=== PATIENT | female | born 1980 | race African-American/Black ===

== ENCOUNTER 2021-06-02 08:39 | Inpatient (IN) | payer MEDICAID, OTHER ==
[2021-06-02 09:12] LABS: #Eosinphils 0.1 thou/uL (0.0-0.7); #Monocytes 0.9 thou/uL (0.11-0.59); #Neutrophils 9.5 thou/uL (1.40-6.50); %Basophils 0.3 % (0.0-1.0); %Eosinophils 0.5 % (0.0-10.0); %Lymphocytes 15.7 % (21.0-51.0); %Neutrophils 76.5 % (42.0-75.0); Mean Corpuscular HGB CONC 27.7 g/dL (32.0-36.0); Mean Corpuscular Hemoglobin 17.8 pg (27.0-31.0); Mean Corpuscular Volume 64.2 fL (78.0-98.0); Mean Platelet Volume 5.9 fL (7.4-10.4); Platelet Count 265 thou/uL (130-400); RBC Distribution Width 22.4 % (11.5-14.5); Red Blood Cell (RBC) Count 3.94 mill/uL (4.20-5.40); White Blood Cell (WBC) Count 12.5 thou/uL (4.8-10.8)
[2021-06-02 09:31] LABS: Reflex for Review?? YES
[2021-06-02 09:38] LABS: ALT (SGPT) 8 U/L (8-55); AST (SGOT) 21 U/L (5-34); Albumin 4.2 g/dL (3.5-5.0); Alkaline Phosphatase 59 U/L (40-110); Anion Gap 11 mmol/L (10-20); BUN (Urea Nitrogen) 11 mg/dL (7.0-18.7); Bilirubin, Total 0.6 mg/dL (0.2-1.2); Calc. Creatinine Clearance 0 mL/min (70-130); Calcium 8.6 mg/dL (7.8-10.44); Carbon Dioxide 30 mmol/L (22-29); Chloride 97 mmol/L (98-107); Globulin 4.5 g/dL (2.4-3.5); Glucose 125 mg/dL (70-105); Potassium 3.7 mmol/L (3.5-5.1); Protein, Total 8.7 g/dL (6.0-8.3); Sodium 134 mmol/L (136-145)
[2021-06-02 09:46] LABS: Hypochromia MODERATE=16-30 cells (100X) (0-5/hpf); MDiff Complete? YES; Microcytosis MARKED = >30 cells (100X) (0-5/hpf); Platelet Morphology Comment Appears Adequate; Polychromasia SLIGHT = 2-3 cells (100X) (0-2/hpf); Stomatocytes SLIGHT = 2-5 cells (100X) (0-1/hpf)
[2021-06-02] MEDS ORDERED: Iopamidol-370 76% 500 ML 1 ML ONE (10:18)
[2021-06-02 11:48] LABS: Bacteria/HPF 4+ HPF (None Seen); Bilirubin Negative (Negative); Blood, Urine 3+ (Negative); Clarity Turbid (Clear); Glucose, Urine (Dipstick) Normal (Negative); Ketone, Urine Negative (Negative); Leukocyte 75 Leu/uL (Negative); Nitrite Negative (Negative); Pregnancy Test - Urine (BHCG) Negative (Negative); Pregu Control Background? CLEAR/WHITE (CLR/WHITE); Pregu Control Bar Appear? YES (CONTROL BAR); Protein, Urine (Dipstick) 200 mg/dL (Neg-Trace); Specific Gravity 1.021 (1.002-1.036); Specific Gravity, Urine 1.021 (1.002-1.036); Urobilinogen 3 mg/dL (Less than 2)
[2021-06-02 13:49] LABS: SARS-CoV-2 NAA Rapid Test DETECTED (NotDetected)
[2021-06-02 13:58] LABS: Actual Bicarbonate (HCO3a) 30.3 mEq/L (22-28); Analyzer IN Cardio ER; Base Excess (BEa) 2.5 mEq/L (-2.0 to +3.0); Calcium, Ionized (arterial) 1.01 mmol/L (1.12-1.30); Carboxyhemoglobin (COHb) 1.5 gm% (0.0-3.0); Hemoglobin (Hb) 7.5 g/dL (12.0-16.0); pH, Arterial 7.25 (7.35-7.45)
[2021-06-02 13:59] LABS: ALV-art Gradient 60.215 mmHg (0-20); CO2 Tension 70.1 mmHg (35.0-45.0); O2 Tension (PaO2), arterial 51.8 mmHg (80.0-100.0); Puncture Site RRA
[2021-06-02 15:19] LABS: Actual Bicarbonate (HCO3a) 30.7 mEq/L (22-28); Analyzer IN Cardio ER; Base Excess (BEa) 1.6 mEq/L (-2.0 to +3.0); Calcium, Ionized (arterial) 1.05 mmol/L (1.12-1.30); Carboxyhemoglobin (COHb) 1.8 gm% (0.0-3.0); Hemoglobin (Hb) 7.9 g/dL (12.0-16.0); O2 Tension (PaO2), arterial 62.9 mmHg (80.0-100.0)
[2021-06-02] MEDS ORDERED: Rocuronium Bromide 10 MG/ML (10ML VIAL) ONE (15:29)
[2021-06-02] MEDS ORDERED: Fentanyl CADD 100 ML IV SCH (15:45)
[2021-06-02] MEDS ORDERED: Midazolam HCl 5 mg/ml Vial ONE (15:52)
[2021-06-02 16:05] LABS: CO2 Tension 82.5 mmHg (35.0-45.0); Puncture Site LRA; pH, Arterial 7.19 (7.35-7.45)
[2021-06-02 16:06] LABS: ALV-art Gradient 261.775 mmHg (0-20)
[2021-06-02] MEDS ORDERED: Dexamethasone 4 mg/ml Vial ONE (16:18)
[2021-06-02 16:53] LABS: Actual Bicarbonate (HCO3a) 21.9 mEq/L (22-28); Analyzer IN Cardio ER; Calcium, Ionized (arterial) 0.95 mmol/L (1.12-1.30); Carboxyhemoglobin (COHb) 1.6 gm% (0.0-3.0); Hemoglobin (Hb) 7.3 g/dL (12.0-16.0); O2 Tension (PaO2), arterial 138.4 mmHg (80.0-100.0); Potassium - ABG Lab 3.67 mmol/L (3.70-5.30)
[2021-06-02 17:02] LABS: CO2 Tension 21.6 mmHg (35.0-45.0); Puncture Site LRA; pH, Arterial 7.62 (7.35-7.45)
[2021-06-02] MEDS ORDERED: cefTRIAXone\\ROCEPHIN 1 GM VIAL ONE ×2 (17:55→22:06)
[2021-06-02] MEDS ORDERED: Electrolyte Replacement Protocol 1 EACH IVPB PRN (18:19)
[2021-06-02] MEDS ORDERED: Ondansetron PF 4 MG/2 ML Vial IVP PRN (18:19)
[2021-06-02 18:51] LABS: Hemoglobin 6.6 g/dL (12.0-16.0)
[2021-06-02] MEDS ORDERED: Propofol 1,000 MG/100 ML VIAL IV ONE (19:09)
[2021-06-02] MEDS ORDERED: Pantoprazole 40 MG VIAL IVP SCH (19:15)
[2021-06-02] MEDS ORDERED: Acetaminophen 325 MG TAB ONE ×2 (19:27→19:28)
[2021-06-02] MEDS ORDERED: cefTRIAXone\\ROCEPHIN 1 GM in Sodium Chloride 0.9% 100 ML IVPB SCH (20:00)
[2021-06-02] MEDS: Acetaminophen 650 MG Suppository PR PRN (20:16)
[2021-06-02] MEDS ORDERED: Azithromycin 500 MG VIAL ONE (20:18)
[2021-06-02] MEDS: Azithromycin 500 MG in Sodium Chloride 0.9% 250 ML 250 ML IVPB SCH ×2 (20:49→21:02)
[2021-06-02] MEDS ORDERED: Pantoprazole 40 MG VIAL ONE (22:07)
[2021-06-02] MEDS ORDERED: Norepinephrine 8 MG/0.9% NS 250 ML ONE (22:53)
[2021-06-02] MEDS: Enoxaparin Sodium 40 MG/0.4 ML SYRINGE SC SCH (23:05)
[2021-06-02] MEDS ORDERED: Norepinephrine 8 MG/0.9% NS 250 ML IVPB SCH (23:30)
[2021-06-03] MEDS ORDERED: Propofol 1,000 MG/100 ML VIAL IV ONE ×2 (00:17→06:11)
[2021-06-03] MEDS: Colchicine 0.6 MG TAB PER TUBE SCH ×2 (04:00→09:35)
[2021-06-03] MEDS ORDERED: Fentanyl CADD 100 ML ONE (05:38)
[2021-06-03 05:49] LABS: ALT (SGPT) 9 U/L (8-55); AST (SGOT) 17 U/L (5-34); Albumin 3.7 g/dL (3.5-5.0); Alkaline Phosphatase 48 U/L (40-110); Anion Gap 12 mmol/L (10-20); BUN (Urea Nitrogen) 18 mg/dL (7.0-18.7); Bilirubin, Total 0.6 mg/dL (0.2-1.2); CRP (Inflammatory) 13.72 mg/dL (= or < 0.5); Calc. Creatinine Clearance 40 mL/min (70-130); Calcium 7.7 mg/dL (7.8-10.44); Carbon Dioxide 25 mmol/L (22-29); Chloride 99 mmol/L (98-107); Globulin 4.1 g/dL (2.4-3.5); Glucose 149 mg/dL (70-105); Potassium 3.8 mmol/L (3.5-5.1); Protein, Total 7.8 g/dL (6.0-8.3); Sodium 132 mmol/L (136-145)
[2021-06-03 05:56] LABS: #Lymphocytes 0.6 thou/uL (1.20-3.40); #Monocytes 0.5 thou/uL (0.11-0.59); #Neutrophils 12.3 thou/uL (1.40-6.50); %Eosinophils 0.1 % (0.0-10.0); %Lymphocytes 4.2 % (21.0-51.0); %Monocytes 3.7 % (0.0-10.0); %Neutrophils 92.1 % (42.0-75.0); Hemoglobin 6.6 g/dL (12.0-16.0); Mean Corpuscular HGB CONC 28.9 g/dL (32.0-36.0); Mean Corpuscular Hemoglobin 18.9 pg (27.0-31.0); Mean Corpuscular Volume 65.5 fL (78.0-98.0); Mean Platelet Volume 6.1 fL (7.4-10.4); Platelet Count 222 thou/uL (130-400); RBC Distribution Width 23.7 % (11.5-14.5); Red Blood Cell (RBC) Count 3.51 mill/uL (4.20-5.40); White Blood Cell (WBC) Count 13.4 thou/uL (4.8-10.8)
[2021-06-03] MEDS ORDERED: DISCONTINUE PREVIOUS NARCOTIC PAIN MEDICATIONS AND BENZODIAZEPINES FS SCH (07:00)
[2021-06-03] MEDS ORDERED: Fentanyl BOLUS 250 ML IVPB PRN (07:00)
[2021-06-03] MEDS ORDERED: Morphine 2 MG/ML VIAL SLOW IVP PRN (07:00)
[2021-06-03] MEDS ORDERED: Propofol BOLUS 1,000 MG/100 ML VIAL IV PRN (07:00)
[2021-06-03 07:18] LABS: Hemoglobin 7.1 g/dL (12.0-16.0)
[2021-06-03 08:23] LABS: Actual Bicarbonate (HCO3a) 22.2 mEq/L (22-28); Base Excess (BEa) -1.3 mEq/L (-2.0 to +3.0); CO2 Tension 32.5 mmHg (35.0-45.0); Calcium, Ionized (arterial) 0.95 mmol/L (1.12-1.30); Carboxyhemoglobin (COHb) 0.5 gm% (0.0-3.0); Hemoglobin (Hb) 9.3 g/dL (12.0-16.0); O2 Tension (PaO2), arterial 68.5 mmHg (80.0-100.0); Potassium - ABG Lab 3.87 mmol/L (3.70-5.30); pH, Arterial 7.45 (7.35-7.45)
[2021-06-03 08:27] LABS: ALV-art Gradient 247.375 mmHg (0-20); Puncture Site RRA
[2021-06-03] MEDS: Pantoprazole 40 MG VIAL IVP SCH (09:35)
[2021-06-03] MEDS: Dexamethasone 10 MG/ML VIAL SLOW IVP SCH (09:35)
[2021-06-03] MEDS: Enoxaparin Sodium 40 MG/0.4 ML SYRINGE SC SCH ×2 (09:35→19:31)
[2021-06-03] MEDS: Propofol 1,000 MG/100 ML VIAL IV PRN ×2 (09:51→15:04)
[2021-06-03 10:51] LABS: Actual Bicarbonate (HCO3a) 24.1 mEq/L (22-28); Base Excess (BEa) -1.5 mEq/L (-2.0 to +3.0); CO2 Tension 45.1 mmHg (35.0-45.0); Calcium, Ionized (arterial) 0.98 mmol/L (1.12-1.30); Carboxyhemoglobin (COHb) 0.8 gm% (0.0-3.0); Hemoglobin (Hb) 7.3 g/dL (12.0-16.0); O2 Tension (PaO2), arterial 63.9 mmHg (80.0-100.0); Potassium - ABG Lab 3.64 mmol/L (3.70-5.30); pH, Arterial 7.35 (7.35-7.45)
[2021-06-03 10:53] LABS: ALV-art Gradient 164.925 mmHg (0-20); Puncture Site RBA
[2021-06-03] MEDS ORDERED: Vecuronium 10 MG VIAL ONE (12:40)
[2021-06-03 16:28] LABS: Hemoglobin 6.6 g/dL (12.0-16.0); Mean Corpuscular HGB CONC 27.8 g/dL (32.0-36.0); Mean Corpuscular Hemoglobin 18.3 pg (27.0-31.0); Mean Corpuscular Volume 65.8 fL (78.0-98.0); Mean Platelet Volume 6.1 fL (7.4-10.4); Platelet Count 201 thou/uL (130-400); RBC Distribution Width 23.9 % (11.5-14.5); Red Blood Cell (RBC) Count 3.57 mill/uL (4.20-5.40); White Blood Cell (WBC) Count 17.6 thou/uL (4.8-10.8)
[2021-06-03] MEDS: Fentanyl CADD 100 ML IV SCH (17:16)
[2021-06-03] MEDS: Azithromycin 500 MG in Sodium Chloride 0.9% 250 ML 250 ML IVPB SCH (19:32)
[2021-06-03] MEDS ORDERED: cefTRIAXone\\ROCEPHIN 2 GM in Sodium Chloride 0.9% 100 ML IVPB SCH (21:00)
[2021-06-04] MEDS: Lorazepam 2 MG/ML VIAL SLOW IVP PRN ×3 (01:19→13:59)
[2021-06-04 04:55] LABS: Phosphorus 4.6 mg/dL (2.3-4.7)
[2021-06-04 04:56] LABS: ALT (SGPT) 10 U/L (8-55); AST (SGOT) 22 U/L (5-34); Albumin 3.7 g/dL (3.5-5.0); Alkaline Phosphatase 48 U/L (40-110); Anion Gap 14 mmol/L (10-20); BUN (Urea Nitrogen) 30 mg/dL (7.0-18.7); Bilirubin, Total 0.4 mg/dL (0.2-1.2); Calc. Creatinine Clearance 46 mL/min (70-130); Calcium 7.8 mg/dL (7.8-10.44); Carbon Dioxide 25 mmol/L (22-29); Chloride 100 mmol/L (98-107); Globulin 4.3 g/dL (2.4-3.5); Glucose 146 mg/dL (70-105); Magnesium 2.3 mg/dL (1.6-2.6); Potassium 4.5 mmol/L (3.5-5.1); Sodium 134 mmol/L (136-145)
[2021-06-04] MEDS ORDERED: Fentanyl CADD 100 ML ONE (05:14)
[2021-06-04] MEDS: Fentanyl CADD 100 ML IV SCH ×2 (05:27→17:33)
[2021-06-04 05:59] LABS: Hemoglobin 8.4 g/dL (12.0-16.0); Mean Corpuscular Hemoglobin 21.2 pg (27.0-31.0); Mean Corpuscular Volume 70.7 fL (78.0-98.0); Mean Platelet Volume 6.4 fL (7.4-10.4); Platelet Count 214 thou/uL (130-400); RBC Distribution Width 24.9 % (11.5-14.5); Red Blood Cell (RBC) Count 3.94 mill/uL (4.20-5.40); White Blood Cell (WBC) Count 16.8 thou/uL (4.8-10.8)
[2021-06-04 06:02] LABS: #Lymphocytes 0.7 thou/uL (1.20-3.40); #Monocytes 0.4 thou/uL (0.11-0.59); #Neutrophils 15.7 thou/uL (1.40-6.50); %Eosinophils 0.1 % (0.0-10.0); %Lymphocytes 4.1 % (21.0-51.0); %Monocytes 2.6 % (0.0-10.0); %Neutrophils 93.2 % (42.0-75.0); Anisocytosis MODERATE=16-30 cells (100X) (0-5/hpf); Hypochromia MODERATE=16-30 cells (100X) (0-5/hpf); MDiff Complete? YES; Platelet Morphology Comment Appears Adequate; Polychromasia SLIGHT = 2-3 cells (100X) (0-2/hpf)
[2021-06-04 08:05] LABS: Actual Bicarbonate (HCO3a) 25.6 mEq/L (22-28); Base Excess (BEa) -1.5 mEq/L (-2.0 to +3.0); CO2 Tension 55.8 mmHg (35.0-45.0); Calcium, Ionized (arterial) 1.05 mmol/L (1.12-1.30); Carboxyhemoglobin (COHb) 1.3 gm% (0.0-3.0); Hemoglobin (Hb) 8.8 g/dL (12.0-16.0); O2 Tension (PaO2), arterial 77.4 mmHg (80.0-100.0); Potassium - ABG Lab 4.46 mmol/L (3.70-5.30); pH, Arterial 7.28 (7.35-7.45)
[2021-06-04 08:07] LABS: Puncture Site LRA
[2021-06-04] MEDS: Pantoprazole 40 MG VIAL IVP SCH (08:49)
[2021-06-04] MEDS: Dexamethasone 10 MG/ML VIAL SLOW IVP SCH (08:49)
[2021-06-04] MEDS ORDERED: Atropine Sulfate 1 mg/1 ml Vial IVP PRN (12:53)
[2021-06-04] MEDS: Sodium Chloride 0.9% 1,000 ML IV SCH (14:12)
[2021-06-04] MEDS ORDERED: Vancomycin HCl 1.25 GM in Sodium Chloride 0.9% 250 ML 250 ML IVPB SCH (15:00)
[2021-06-04 15:32] LABS: Actual Bicarbonate (HCO3a) 25.9 mEq/L (22-28); Base Excess (BEa) -0.9 mEq/L (-2.0 to +3.0); CO2 Tension 54.1 mmHg (35.0-45.0); Calcium, Ionized (arterial) 1.04 mmol/L (1.12-1.30); Carboxyhemoglobin (COHb) 0.3 gm% (0.0-3.0); Hemoglobin (Hb) 9.1 g/dL (12.0-16.0); O2 Tension (PaO2), arterial 60.7 mmHg (80.0-100.0); Potassium - ABG Lab 4.56 mmol/L (3.70-5.30)
[2021-06-04 15:36] LABS: Puncture Site LRA
[2021-06-04 15:37] LABS: ALV-art Gradient 299.475 mmHg (0-20)
[2021-06-04 16:04] LABS: Bilirubin Negative (Negative); Blood, Urine 2+ (Negative); Clarity Turbid (Clear); Glucose, Urine (Dipstick) Normal (Negative); Ketone, Urine Negative (Negative); Leukocyte 75 Leu/uL (Negative); Nitrite Negative (Negative); Protein, Urine (Dipstick) 100 mg/dL (Neg-Trace); Specific Gravity, Urine 1.023 (1.002-1.036); Urobilinogen Normal mg/dL (Less than 2); WBC/HPF 21-50 HPF (0-3)
[2021-06-04 16:05] LABS: Bacteria/HPF 1+ HPF (None Seen)
[2021-06-04 16:07] LABS: Urine Culture Reflex No No
[2021-06-04 16:59] LABS: Creatinine, Urine 136.35 mg/dL (47-110)
[2021-06-04] MEDS: Zinc Sulfate 220 MG CAP PO SCH (20:02)
[2021-06-04] MEDS: cefTRIAXone\\ROCEPHIN 1 GM in Sodium Chloride 0.9% 100 ML IVPB SCH (20:02)
[2021-06-04] MEDS: Enoxaparin Sodium 40 MG/0.4 ML SYRINGE SC SCH (20:02)
[2021-06-04] MEDS: Cholecalciferol 1,000 UNITS (25 MCG) TAB PO SCH (20:06)
[2021-06-04] MEDS ORDERED: Ventilator Sedation Protocol 1 EACH FS SCH (20:15)
[2021-06-04] MEDS ORDERED: Enoxaparin Sodium 40 MG/0.4 ML SYRINGE SC SCH (21:00)
[2021-06-04] MEDS: Azithromycin 500 MG in Sodium Chloride 0.9% 250 ML 250 ML IVPB SCH (21:58)
[2021-06-05 03:48] LABS: ALT (SGPT) 10 U/L (8-55); AST (SGOT) 24 U/L (5-34); Albumin 3.6 g/dL (3.5-5.0); Alkaline Phosphatase 48 U/L (40-110); Anion Gap 14 mmol/L (10-20); BUN (Urea Nitrogen) 30 mg/dL (7.0-18.7); Bilirubin, Total 0.3 mg/dL (0.2-1.2); Calc. Creatinine Clearance 64 mL/min (70-130); Calcium 7.9 mg/dL (7.8-10.44); Carbon Dioxide 26 mmol/L (22-29); Chloride 103 mmol/L (98-107); Globulin 4.3 g/dL (2.4-3.5); Glucose 101 mg/dL (70-105); Magnesium 2.2 mg/dL (1.6-2.6); Phosphorus 3.2 mg/dL (2.3-4.7); Potassium 4.5 mmol/L (3.5-5.1); Protein, Total 7.9 g/dL (6.0-8.3); Sodium 138 mmol/L (136-145)
[2021-06-05 04:39] LABS: Hemoglobin 8.7 g/dL (12.0-16.0); Mean Corpuscular HGB CONC 29.6 g/dL (32.0-36.0); Mean Corpuscular Hemoglobin 20.9 pg (27.0-31.0); Mean Corpuscular Volume 70.7 fL (78.0-98.0); Mean Platelet Volume 6.6 fL (7.4-10.4); Platelet Count 207 thou/uL (130-400); RBC Distribution Width 25.6 % (11.5-14.5); Red Blood Cell (RBC) Count 4.18 mill/uL (4.20-5.40); White Blood Cell (WBC) Count 19.1 thou/uL (4.8-10.8)
[2021-06-05 04:56] LABS: Anisocytosis MODERATE=16-30 cells (100X) (0-5/hpf); Band 36 % (5-11); Elliptocytes SLIGHT = 2-5 cells (100X) (0-1/hpf); Lymphocytes 3 % (21-51); MDiff Complete? YES; Monocytes 1 % (0-10); Neutrophil 60 % (42-75); Nucleated RBC 3 % (0)
[2021-06-05] MEDS: Sodium Chloride 0.9% 1,000 ML IV SCH ×3 (04:59→16:46)
[2021-06-05] MEDS: Propofol 1,000 MG/100 ML VIAL IV PRN ×3 (07:06→16:11)
[2021-06-05 07:46] LABS: Iron 18 ug/dL (50-170); Iron Binding Capacity, Total 429 mcg/dL (265-497)
[2021-06-05 08:20] LABS: Actual Bicarbonate (HCO3a) 24.5 mEq/L (22-28); Base Excess (BEa) -1.8 mEq/L (-2.0 to +3.0); CO2 Tension 49.6 mmHg (35.0-45.0); Calcium, Ionized (arterial) 1.09 mmol/L (1.12-1.30); Carboxyhemoglobin (COHb) 1.1 gm% (0.0-3.0); Hemoglobin (Hb) 8.7 g/dL (12.0-16.0); Potassium - ABG Lab 4.22 mmol/L (3.70-5.30); pH, Arterial 7.31 (7.35-7.45)
[2021-06-05 08:23] LABS: O2 Tension (PaO2), arterial 55.1 mmHg (80.0-100.0); Puncture Site LRA
[2021-06-05] MEDS: Ascorbic Acid 500 mg Chewable Tablet PO SCH (08:44)
[2021-06-05] MEDS: Multivit, Therapeutic 1 TAB PO SCH (08:44)
[2021-06-05] MEDS: Folic Acid 1 MG TAB PO SCH (08:44)
[2021-06-05] MEDS: Pantoprazole 40 MG VIAL IVP SCH (08:44)
[2021-06-05] MEDS ORDERED: Fentanyl CADD 100 ML ONE ×2 (10:10→21:31)
[2021-06-05] MEDS: Fentanyl CADD 100 ML IV SCH ×2 (10:17→21:35)
[2021-06-05] MEDS: Dexamethasone 10 MG/ML VIAL SLOW IVP SCH (10:56)
[2021-06-05] MEDS ORDERED: Polyethylene Glycol 3350 17 GM Packet PO PRN (11:14)
[2021-06-05 14:42] LABS: Vancomycin, Random 14.4 ug/mL (See Comment)
[2021-06-05] MEDS ORDERED: Vancomycin HCl 1.25 GM in Sodium Chloride 0.9% 250 ML 250 ML IVPB SCH (15:00)
[2021-06-05] MEDS: cefTRIAXone\\ROCEPHIN 1 GM in Sodium Chloride 0.9% 100 ML IVPB SCH (20:50)
[2021-06-05] MEDS: Cholecalciferol 1,000 UNITS (25 MCG) TAB PO SCH (20:50)
[2021-06-05] MEDS: Zinc Sulfate 220 MG CAP PO SCH (20:51)
[2021-06-05] MEDS: Dexamethasone 4 mg/ml Vial SLOW IVP SCH (20:51)
[2021-06-05] MEDS: Enoxaparin Sodium 40 MG/0.4 ML SYRINGE SC SCH (20:55)
[2021-06-05] MEDS: Azithromycin 500 MG in Sodium Chloride 0.9% 250 ML 250 ML IVPB SCH (20:55)
[2021-06-06] MEDS ORDERED: Refresh Lacri-lube Opth Oint 7 GM TUBE EA EYE PRN (04:07)
[2021-06-06 05:02] LABS: #Lymphocytes 0.6 thou/uL (1.20-3.40); #Monocytes 0.2 thou/uL (0.11-0.59); #Neutrophils 16.1 thou/uL (1.40-6.50); %Basophils 0.2 % (0.0-1.0); %Lymphocytes 3.5 % (21.0-51.0); %Neutrophils 95.3 % (42.0-75.0); Anisocytosis MODERATE=16-30 cells (100X) (0-5/hpf); Band 22 % (5-11); Hemoglobin 8.2 g/dL (12.0-16.0); Hypochromia SLIGHT = 6-15 cells (100X) (0-5/hpf); Lymphocytes 2 % (21-51); MDiff Complete? YES; Mean Corpuscular HGB CONC 30.4 g/dL (32.0-36.0); Mean Corpuscular Hemoglobin 21.5 pg (27.0-31.0); Mean Corpuscular Volume 70.7 fL (78.0-98.0); Mean Platelet Volume 6.6 fL (7.4-10.4); Microcytosis SLIGHT = 6-15 cells (100X) (0-5/hpf); Neutrophil 75 % (42-75); Nucleated RBC 1 % (0); Platelet Count 194 thou/uL (130-400); Polychromasia SLIGHT = 2-3 cells (100X) (0-2/hpf); RBC Distribution Width 25.7 % (11.5-14.5); Red Blood Cell (RBC) Count 3.83 mill/uL (4.20-5.40); White Blood Cell (WBC) Count 16.9 thou/uL (4.8-10.8)
[2021-06-06 05:07] LABS: ALT (SGPT) 12 U/L (8-55); AST (SGOT) 21 U/L (5-34); Albumin 3.3 g/dL (3.5-5.0); Alkaline Phosphatase 44 U/L (40-110); Anion Gap 11 mmol/L (10-20); BUN (Urea Nitrogen) 33 mg/dL (7.0-18.7); BUN/Creatinine Ratio 18.64; Bilirubin, Total 0.2 mg/dL (0.2-1.2); CK (CPK) 210 U/L (29-168); CRP (Inflammatory) 3.11 mg/dL (= or < 0.5); Calc. Creatinine Clearance 79 mL/min (70-130); Calcium 7.8 mg/dL (7.8-10.44); Carbon Dioxide 25 mmol/L (22-29); Chloride 105 mmol/L (98-107); Globulin 3.8 g/dL (2.4-3.5); Glucose 186 mg/dL (70-105); Magnesium 2.2 mg/dL (1.6-2.6); Phosphorus 2.3 mg/dL (2.3-4.7); Potassium 4.6 mmol/L (3.5-5.1); Protein, Total 7.1 g/dL (6.0-8.3); Sodium 136 mmol/L (136-145)
[2021-06-06 07:31] LABS: Actual Bicarbonate (HCO3a) 25.7 mEq/L (22-28); Base Excess (BEa) -1.2 mEq/L (-2.0 to +3.0); CO2 Tension 54.2 mmHg (35.0-45.0); Calcium, Ionized (arterial) 1.11 mmol/L (1.12-1.30); Carboxyhemoglobin (COHb) 1.3 gm% (0.0-3.0); Hemoglobin (Hb) 9.4 g/dL (12.0-16.0); Potassium - ABG Lab 4.73 mmol/L (3.70-5.30); pH, Arterial 7.29 (7.35-7.45)
[2021-06-06 08:00] LABS: O2 Tension (PaO2), arterial 57.3 mmHg (80.0-100.0); Puncture Site RRA
[2021-06-06] MEDS: Sodium Chloride 0.9% 1,000 ML IV SCH (08:51)
[2021-06-06] MEDS ORDERED: Furosemide 40 MG/4 ML VIAL SLOW IVP SCH ×2 (09:30→18:30)
[2021-06-06] MEDS: Dexamethasone 4 mg/ml Vial SLOW IVP SCH ×2 (09:30→20:56)
[2021-06-06] MEDS: Ascorbic Acid 500 mg Chewable Tablet PO SCH (09:31)
[2021-06-06] MEDS: Pantoprazole 40 MG VIAL IVP SCH (09:33)
[2021-06-06] MEDS: Lorazepam 2 MG/ML VIAL SLOW IVP PRN ×4 (09:34→20:54)
[2021-06-06] MEDS: Iron, Sodium Ferric Gluconate 250 MG in Sodium Chloride 0.9% 250 ML 250 ML IVPB SCH (09:36)
[2021-06-06] MEDS: Multivit, Therapeutic 1 TAB PO SCH (09:36)
[2021-06-06] MEDS: Folic Acid 1 MG TAB PO SCH (09:36)
[2021-06-06] MEDS ORDERED: Fentanyl CADD 100 ML ONE (09:47)
[2021-06-06] MEDS: Fentanyl CADD 100 ML IV SCH (09:49)
[2021-06-06] MEDS: Vecuronium 10 MG VIAL IVP PRN ×3 (11:57→20:56)
[2021-06-06] MEDS: Propofol 1,000 MG/100 ML VIAL IV PRN ×3 (11:57→18:03)
[2021-06-06 14:41] LABS: Vancomycin, Trough 14.3 ug/mL
[2021-06-06] MEDS ORDERED: Vancomycin HCl 1.25 GM in Sodium Chloride 0.9% 250 ML 250 ML IVPB SCH (16:00)
[2021-06-06] MEDS: Azithromycin 500 MG in Sodium Chloride 0.9% 250 ML 250 ML IVPB SCH (20:47)
[2021-06-06] MEDS: Enoxaparin Sodium 40 MG/0.4 ML SYRINGE SC SCH (20:54)
[2021-06-06] MEDS: cefTRIAXone\\ROCEPHIN 1 GM in Sodium Chloride 0.9% 100 ML IVPB SCH (20:55)
[2021-06-06] MEDS: Cholecalciferol 1,000 UNITS (25 MCG) TAB PO SCH (20:55)
[2021-06-06] MEDS: Zinc Sulfate 220 MG CAP PO SCH (20:56)
[2021-06-07] MEDS: Propofol 1,000 MG/100 ML VIAL IV PRN ×7 (00:44→21:41)
[2021-06-07] MEDS ORDERED: Fentanyl CADD 100 ML ONE ×2 (03:47→21:44)
[2021-06-07] MEDS: Vecuronium 10 MG VIAL IVP PRN ×4 (03:51→21:26)
[2021-06-07] MEDS: Fentanyl CADD 100 ML IV SCH ×2 (03:51→22:01)
[2021-06-07 05:34] LABS: Phosphorus 2.1 mg/dL (2.3-4.7)
[2021-06-07 05:37] LABS: Anion Gap 11 mmol/L (10-20); BUN (Urea Nitrogen) 34 mg/dL (7.0-18.7); Carbon Dioxide 27 mmol/L (22-29); Chloride 105 mmol/L (98-107); Potassium 4.4 mmol/L (3.5-5.1); Sodium 139 mmol/L (136-145)
[2021-06-07 05:38] LABS: AST (SGOT) 27 U/L (5-34); Albumin 3.3 g/dL (3.5-5.0); Alkaline Phosphatase 47 U/L (40-110); BUN/Creatinine Ratio 21.79; Bilirubin, Total 0.3 mg/dL (0.2-1.2); CRP (Inflammatory) 1.72 mg/dL (= or < 0.5); Calc. Creatinine Clearance 89 mL/min (70-130); Calcium 8.4 mg/dL (7.8-10.44); Globulin 4.2 g/dL (2.4-3.5); Glucose 148 mg/dL (70-105); Magnesium 2.1 mg/dL (1.6-2.6); Phosphorus 2.1 mg/dL (2.3-4.7); Protein, Total 7.5 g/dL (6.0-8.3)
[2021-06-07 05:52] LABS: ALT (SGPT) 17 U/L (8-55)
[2021-06-07 06:57] LABS: Anisocytosis MODERATE=16-30 cells (100X) (0-5/hpf); Band 19 % (5-11); Hemoglobin 9.1 g/dL (12.0-16.0); Lymphocytes 4 % (21-51); MDiff Complete? YES; Mean Corpuscular HGB CONC 29.2 g/dL (32.0-36.0); Mean Corpuscular Hemoglobin 20.6 pg (27.0-31.0); Mean Corpuscular Volume 70.5 fL (78.0-98.0); Mean Platelet Volume 6.7 fL (7.4-10.4); Monocytes 1 % (0-10); Myelocyte 1 % (0-0); Neutrophil 74 % (42-75); Nucleated RBC 2 % (0); Platelet Count 238 thou/uL (130-400); Platelet Morphology Comment Appears Adequate; RBC Distribution Width 26.3 % (11.5-14.5); Reactive Lymphocytes 1 % (0-10); Red Blood Cell (RBC) Count 4.39 mill/uL (4.20-5.40)
[2021-06-07 08:25] LABS: Actual Bicarbonate (HCO3a) 25.9 mEq/L (22-28); Base Excess (BEa) 0.9 mEq/L (-2.0 to +3.0); CO2 Tension 42.8 mmHg (35.0-45.0); Calcium, Ionized (arterial) 1.11 mmol/L (1.12-1.30); Carboxyhemoglobin (COHb) 0.7 gm% (0.0-3.0); Hemoglobin (Hb) 9.2 g/dL (12.0-16.0); Potassium - ABG Lab 4.21 mmol/L (3.70-5.30)
[2021-06-07 08:38] LABS: O2 Tension (PaO2), arterial 54.2 mmHg (80.0-100.0)
[2021-06-07 08:39] LABS: Puncture Site RRA
[2021-06-07] MEDS ORDERED: Furosemide 40 MG/4 ML VIAL SLOW IVP SCH ×2 (08:45→17:00)
[2021-06-07] MEDS: Pantoprazole 40 MG VIAL IVP SCH (08:51)
[2021-06-07] MEDS: Ascorbic Acid 500 mg Chewable Tablet PO SCH (08:53)
[2021-06-07] MEDS: Folic Acid 1 MG TAB PO SCH (08:53)
[2021-06-07] MEDS: Dexamethasone 4 mg/ml Vial SLOW IVP SCH ×2 (08:53→20:16)
[2021-06-07] MEDS: Multivit, Therapeutic 1 TAB PO SCH (08:54)
[2021-06-07] MEDS ORDERED: Electrolyte Replacement Protocol 1 EACH FS SCH (09:00)
[2021-06-07] MEDS ORDERED: Electrolyte Replacement Protocol FS PRN (09:15)
[2021-06-07] MEDS: Iron, Sodium Ferric Gluconate 250 MG in Sodium Chloride 0.9% 250 ML 250 ML IVPB SCH (09:59)
[2021-06-07] MEDS: Lorazepam 2 MG/ML VIAL SLOW IVP PRN ×4 (10:00→23:43)
[2021-06-07 11:20] LABS: Base Excess (BEa) -1.4 mEq/L (-2.0 to +3.0); CO2 Tension 43.1 mmHg (35.0-45.0); Calcium, Ionized (arterial) 1.14 mmol/L (1.12-1.30); Carboxyhemoglobin (COHb) 0.4 gm% (0.0-3.0); Hemoglobin (Hb) 9.7 g/dL (12.0-16.0); Potassium - ABG Lab 4.01 mmol/L (3.70-5.30); pH, Arterial 7.36 (7.35-7.45)
[2021-06-07 11:24] LABS: O2 Tension (PaO2), arterial 57.3 mmHg (80.0-100.0)
[2021-06-07 11:25] LABS: Puncture Site RRA
[2021-06-07 11:26] LABS: ALV-art Gradient 601.825 mmHg (0-20)
[2021-06-07] MEDS ORDERED: Vancomycin HCl 1.25 GM in Sodium Chloride 0.9% 250 ML 250 ML IVPB SCH (19:00)
[2021-06-07] MEDS: Cholecalciferol 1,000 UNITS (25 MCG) TAB PO SCH (20:15)
[2021-06-07] MEDS: Zinc Sulfate 220 MG CAP PO SCH (20:16)
[2021-06-07] MEDS: Heparin 5,000 UNITS/ML VIAL SC SCH (20:16)
[2021-06-08] MEDS: Vecuronium 10 MG VIAL IVP PRN ×6 (01:44→19:23)
[2021-06-08] MEDS: Propofol 1,000 MG/100 ML VIAL IV PRN ×5 (01:53→19:48)
[2021-06-08 04:31] LABS: ALT (SGPT) 22 U/L (8-55); AST (SGOT) 32 U/L (5-34); Albumin 3.2 g/dL (3.5-5.0); Alkaline Phosphatase 48 U/L (40-110); Anion Gap 14 mmol/L (10-20); BUN (Urea Nitrogen) 36 mg/dL (7.0-18.7); Bilirubin, Total 0.4 mg/dL (0.2-1.2); CRP (Inflammatory) 1.09 mg/dL (= or < 0.5); Calc. Creatinine Clearance 80 mL/min (70-130); Calcium 8.4 mg/dL (7.8-10.44); Carbon Dioxide 25 mmol/L (22-29); Chloride 103 mmol/L (98-107); Globulin 3.9 g/dL (2.4-3.5); Glucose 186 mg/dL (70-105); Magnesium 1.9 mg/dL (1.6-2.6); Potassium 4.1 mmol/L (3.5-5.1); Protein, Total 7.1 g/dL (6.0-8.3); Sodium 138 mmol/L (136-145)
[2021-06-08 04:52] LABS: Anisocytosis MODERATE=16-30 cells (100X) (0-5/hpf); Band 11 % (5-11); Hemoglobin 8.8 g/dL (12.0-16.0); Hypochromia SLIGHT = 6-15 cells (100X) (0-5/hpf); Large Platelets SLIGHT; Lymphocytes 6 % (21-51); MDiff Complete? YES; Mean Corpuscular HGB CONC 31.2 g/dL (32.0-36.0); Mean Corpuscular Hemoglobin 21.6 pg (27.0-31.0); Mean Corpuscular Volume 69.4 fL (78.0-98.0); Mean Platelet Volume 7.4 fL (7.4-10.4); Microcytosis SLIGHT = 6-15 cells (100X) (0-5/hpf); Monocytes 3 % (0-10); Neutrophil 80 % (42-75); Nucleated RBC 5 % (0); Platelet Count 247 thou/uL (130-400); Platelet Morphology Comment Appears Adequate; Polychromasia SLIGHT = 2-3 cells (100X) (0-2/hpf); RBC Distribution Width 26.7 % (11.5-14.5); Red Blood Cell (RBC) Count 4.07 mill/uL (4.20-5.40); White Blood Cell (WBC) Count 16.9 thou/uL (4.8-10.8)
[2021-06-08] MEDS: Heparin 5,000 UNITS/ML VIAL SC SCH ×3 (05:45→21:36)
[2021-06-08] MEDS ORDERED: Magnesium 2 GM/50 ML 2 GM in Premix Bag 1 BAG IVPB SCH (05:45)
[2021-06-08 06:40] LABS: CK (CPK) 200 U/L (29-168)
[2021-06-08 07:48] LABS: Actual Bicarbonate (HCO3a) 26.5 mEq/L (22-28); Calcium, Ionized (arterial) 1.17 mmol/L (1.12-1.30); Carboxyhemoglobin (COHb) 0.5 gm% (0.0-3.0); Hemoglobin (Hb) 9.5 g/dL (12.0-16.0); Potassium - ABG Lab 4.02 mmol/L (3.70-5.30); pH, Arterial 7.38 (7.35-7.45)
[2021-06-08 09:06] LABS: Puncture Site LRA
[2021-06-08] MEDS ORDERED: Furosemide 40 MG/4 ML VIAL SLOW IVP SCH ×2 (09:45→19:00)
[2021-06-08] MEDS ORDERED: Vecuronium 10 MG VIAL ONE ×2 (09:46→17:00)
[2021-06-08] MEDS: Multivit, Therapeutic 1 TAB PO SCH (10:50)
[2021-06-08] MEDS: Folic Acid 1 MG TAB PO SCH (10:50)
[2021-06-08] MEDS: Dexamethasone 4 mg/ml Vial SLOW IVP SCH ×2 (10:50→19:23)
[2021-06-08] MEDS: Pantoprazole 40 MG VIAL IVP SCH ×2 (10:50→19:23)
[2021-06-08] MEDS: Ascorbic Acid 500 mg Chewable Tablet PO SCH (10:51)
[2021-06-08] MEDS: Iron, Sodium Ferric Gluconate 250 MG in Sodium Chloride 0.9% 250 ML 250 ML IVPB SCH (10:51)
[2021-06-08] MEDS: Fentanyl CADD 100 ML IV SCH (17:46)
[2021-06-08 18:24] LABS: Vancomycin, Random 18.1 ug/mL (See Comment)
[2021-06-08] MEDS: Cholecalciferol 1,000 UNITS (25 MCG) TAB PO SCH (19:23)
[2021-06-08] MEDS: Zinc Sulfate 220 MG CAP PO SCH (19:23)
[2021-06-08] MEDS ORDERED: Vancomycin 1 GM in Premix Bag 1 BAG IVPB SCH (22:00)
[2021-06-09] MEDS: Propofol 1,000 MG/100 ML VIAL IV PRN ×5 (00:28→23:48)
[2021-06-09] MEDS: Vecuronium 10 MG VIAL IVP PRN ×7 (00:47→23:29)
[2021-06-09 03:30] LABS: ALT (SGPT) 26 U/L (8-55); AST (SGOT) 28 U/L (5-34); Albumin 3.3 g/dL (3.5-5.0); Alkaline Phosphatase 52 U/L (40-110); Anion Gap 15 mmol/L (10-20); BUN (Urea Nitrogen) 40 mg/dL (7.0-18.7); Bilirubin, Total 0.4 mg/dL (0.2-1.2); Calc. Creatinine Clearance 84 mL/min (70-130); Calcium 8.7 mg/dL (7.8-10.44); Carbon Dioxide 26 mmol/L (22-29); Chloride 98 mmol/L (98-107); Globulin 3.8 g/dL (2.4-3.5); Glucose 247 mg/dL (70-105); Magnesium 2.2 mg/dL (1.6-2.6); Potassium 3.8 mmol/L (3.5-5.1); Protein, Total 7.1 g/dL (6.0-8.3); Sodium 135 mmol/L (136-145)
[2021-06-09 04:30] LABS: Anisocytosis MODERATE=16-30 cells (100X) (0-5/hpf); Band 20 % (5-11); Hemoglobin 9.3 g/dL (12.0-16.0); Lymphocytes 14 % (21-51); MDiff Complete? YES; Mean Corpuscular HGB CONC 32.1 g/dL (32.0-36.0); Mean Corpuscular Hemoglobin 21.9 pg (27.0-31.0); Mean Corpuscular Volume 68.3 fL (78.0-98.0); Mean Platelet Volume 7.2 fL (7.4-10.4); Monocytes 2 % (0-10); Neutrophil 64 % (42-75); Nucleated RBC 3 % (0); Platelet Count 267 thou/uL (130-400); RBC Distribution Width 26.8 % (11.5-14.5); Red Blood Cell (RBC) Count 4.27 mill/uL (4.20-5.40); White Blood Cell (WBC) Count 16.6 thou/uL (4.8-10.8)
[2021-06-09] MEDS: Heparin 5,000 UNITS/ML VIAL SC SCH ×3 (04:36→22:05)
[2021-06-09] MEDS ORDERED: Fentanyl CADD 100 ML ONE (08:34)
[2021-06-09] MEDS: Fentanyl CADD 100 ML IV SCH (08:35)
[2021-06-09] MEDS: Ascorbic Acid 500 mg Chewable Tablet PO SCH (08:40)
[2021-06-09] MEDS: Folic Acid 1 MG TAB PO SCH (08:40)
[2021-06-09] MEDS: Dexamethasone 4 mg/ml Vial SLOW IVP SCH ×2 (08:40→20:06)
[2021-06-09] MEDS: Pantoprazole 40 MG VIAL IVP SCH (08:40)
[2021-06-09] MEDS: Multivit, Therapeutic 1 TAB PO SCH (08:40)
[2021-06-09] MEDS: Iron, Sodium Ferric Gluconate 250 MG in Sodium Chloride 0.9% 250 ML 250 ML IVPB SCH (09:17)
[2021-06-09] MEDS ORDERED: Furosemide 40 MG/4 ML VIAL SLOW IVP SCH ×2 (11:15→19:00)
[2021-06-09] MEDS: Zinc Sulfate 220 MG CAP PO SCH (20:05)
[2021-06-09] MEDS: Cholecalciferol 1,000 UNITS (25 MCG) TAB PO SCH (20:05)
[2021-06-09] MEDS: Artificial Tear Sol 15 ML BOT EA EYE PRN (20:33)
[2021-06-09 21:20] LABS: Vancomycin, Random 17.4 ug/mL (See Comment)
[2021-06-09] MEDS ORDERED: Vancomycin 1 GM in Premix Bag 1 BAG IVPB SCH (22:00)
[2021-06-10] MEDS: Vecuronium 10 MG VIAL IVP PRN ×4 (02:29→19:50)
[2021-06-10 02:47] LABS: Band 11 % (5-11); Hypochromia SLIGHT = 6-15 cells (100X) (0-5/hpf); Lymphocytes 6 % (21-51); MDiff Complete? YES; Mean Corpuscular HGB CONC 32.5 g/dL (32.0-36.0); Mean Corpuscular Hemoglobin 21.9 pg (27.0-31.0); Mean Corpuscular Volume 67.5 fL (78.0-98.0); Mean Platelet Volume 7.5 fL (7.4-10.4); Microcytosis SLIGHT = 6-15 cells (100X) (0-5/hpf); Monocytes 3 % (0-10); Neutrophil 80 % (42-75); Platelet Count 269 thou/uL (130-400); Platelet Morphology Comment Appears Adequate; RBC Distribution Width 27.2 % (11.5-14.5); Red Blood Cell (RBC) Count 4.12 mill/uL (4.20-5.40); White Blood Cell (WBC) Count 15.5 thou/uL (4.8-10.8)
[2021-06-10 03:19] LABS: Anion Gap 14 mmol/L (10-20); BUN (Urea Nitrogen) 55 mg/dL (7.0-18.7); Calc. Creatinine Clearance 73 mL/min (70-130); Calcium 8.7 mg/dL (7.8-10.44); Carbon Dioxide 25 mmol/L (22-29); Chloride 100 mmol/L (98-107); Glucose 298 mg/dL (70-105); Potassium 3.7 mmol/L (3.5-5.1); Sodium 135 mmol/L (136-145)
[2021-06-10] MEDS ORDERED: Fentanyl CADD 100 ML ONE ×2 (03:35→16:06)
[2021-06-10] MEDS: Fentanyl CADD 100 ML IV SCH ×2 (03:40→16:09)
[2021-06-10] MEDS: Heparin 5,000 UNITS/ML VIAL SC SCH ×3 (05:03→21:45)
[2021-06-10] MEDS ORDERED: Dextrose 50% Abboject 50 ML SYRINGE SLOW IVP PRN (08:57)
[2021-06-10] MEDS ORDERED: Dextrose 5% in Water 1,000 ML IV PRN (08:57)
[2021-06-10] MEDS: Folic Acid 1 MG TAB PO SCH (09:13)
[2021-06-10] MEDS: Multivit, Therapeutic 1 TAB PO SCH (09:13)
[2021-06-10] MEDS: Ascorbic Acid 500 mg Chewable Tablet PO SCH (09:13)
[2021-06-10] MEDS: Iron, Sodium Ferric Gluconate 250 MG in Sodium Chloride 0.9% 250 ML 250 ML IVPB SCH (09:14)
[2021-06-10] MEDS: Dexamethasone 4 mg/ml Vial SLOW IVP SCH ×2 (09:16→21:46)
[2021-06-10] MEDS ORDERED: Pantoprazole 40 MG VIAL IVP SCH (09:30)
[2021-06-10 11:39] LABS: Actual Bicarbonate (HCO3a) 21.1 mEq/L (22-28); Base Excess (BEa) -0.1 mEq/L (-2.0 to +3.0); CO2 Tension 23.4 mmHg (35.0-45.0); O2 Tension (PaO2), arterial 99.4 mmHg (80.0-100.0); pH, Arterial 7.57 (7.35-7.45)
[2021-06-10 11:40] LABS: Calcium, Ionized (arterial) 1.05 mmol/L (1.12-1.30); Carboxyhemoglobin (COHb) 0.8 gm% (0.0-3.0); Hemoglobin (Hb) 9.4 g/dL (12.0-16.0); Puncture Site RRA
[2021-06-10] MEDS: Insulin Regular 300 UNITS/3 ML VIAL SC PRN ×2 (12:33→18:07)
[2021-06-10] MEDS: Propofol 1,000 MG/100 ML VIAL IV PRN ×2 (13:58→21:46)
[2021-06-10] MEDS ORDERED: Sterile Water 10 ML ONE (19:47)
[2021-06-10] MEDS: Zinc Sulfate 220 MG CAP PO SCH (21:46)
[2021-06-10] MEDS: Cholecalciferol 1,000 UNITS (25 MCG) TAB PO SCH (21:46)
[2021-06-10] MEDS ORDERED: DOPamine 400 MG/D5W 250 ML 250 ML IVPB SCH (23:30)
[2021-06-10] MEDS ORDERED: Atropine Sulfate 1 mg/1 ml Vial IVP PRN ×2 (23:42→23:45)
[2021-06-11] MEDS: Insulin Regular 300 UNITS/3 ML VIAL SC PRN ×2 (00:18→06:35)
[2021-06-11] MEDS: Propofol 1,000 MG/100 ML VIAL IV PRN ×8 (01:00→22:52)
[2021-06-11] MEDS ORDERED: Fentanyl CADD 100 ML ONE ×2 (02:53→14:36)
[2021-06-11] MEDS: Fentanyl CADD 100 ML IV SCH ×2 (02:56→14:40)
[2021-06-11 04:28] LABS: Phosphorus 4.5 mg/dL (2.3-4.7)
[2021-06-11 04:30] LABS: ALT (SGPT) 26 U/L (8-55); AST (SGOT) 13 U/L (5-34); Albumin 3.3 g/dL (3.5-5.0); Alkaline Phosphatase 53 U/L (40-110); Anion Gap 14 mmol/L (10-20); BUN (Urea Nitrogen) 54 mg/dL (7.0-18.7); Bilirubin, Total 0.6 mg/dL (0.2-1.2); Calc. Creatinine Clearance 74 mL/min (70-130); Calcium 8.7 mg/dL (7.8-10.44); Carbon Dioxide 25 mmol/L (22-29); Chloride 99 mmol/L (98-107); Globulin 3.6 g/dL (2.4-3.5); Glucose 359 mg/dL (70-105); Magnesium 2.3 mg/dL (1.6-2.6); Potassium 3.8 mmol/L (3.5-5.1); Protein, Total 6.9 g/dL (6.0-8.3); Sodium 134 mmol/L (136-145)
[2021-06-11 04:48] LABS: Band 20 % (5-11); Hemoglobin 8.9 g/dL (12.0-16.0); Lymphocytes 8 % (21-51); MDiff Complete? YES; Mean Corpuscular HGB CONC 31.5 g/dL (32.0-36.0); Mean Corpuscular Hemoglobin 21.6 pg (27.0-31.0); Mean Corpuscular Volume 68.7 fL (78.0-98.0); Mean Platelet Volume 7.4 fL (7.4-10.4); Metamyelocyte 1 % (0-0); Monocytes 4 % (0-10); Neutrophil 67 % (42-75); Nucleated RBC 2 % (0); Platelet Count 248 thou/uL (130-400); Platelet Morphology Comment Appears Adequate; RBC Distribution Width 28.1 % (11.5-14.5); Red Blood Cell (RBC) Count 4.12 mill/uL (4.20-5.40); White Blood Cell (WBC) Count 15.2 thou/uL (4.8-10.8)
[2021-06-11] MEDS: Heparin 5,000 UNITS/ML VIAL SC SCH ×3 (06:31→22:52)
[2021-06-11 08:15] LABS: Actual Bicarbonate (HCO3a) 24.9 mEq/L (22-28); Base Excess (BEa) 0.6 mEq/L (-2.0 to +3.0); CO2 Tension 38.5 mmHg (35.0-45.0); Calcium, Ionized (arterial) 1.15 mmol/L (1.12-1.30); Carboxyhemoglobin (COHb) 0.7 gm% (0.0-3.0); Hemoglobin (Hb) 9.3 g/dL (12.0-16.0); O2 Tension (PaO2), arterial 70.6 mmHg (80.0-100.0); Potassium - ABG Lab 3.86 mmol/L (3.70-5.30); pH, Arterial 7.43 (7.35-7.45)
[2021-06-11 08:17] LABS: Puncture Site RRA
[2021-06-11 08:18] LABS: ALV-art Gradient 166.475 mmHg (0-20)
[2021-06-11] MEDS: Ascorbic Acid 500 mg Chewable Tablet PO SCH (09:00)
[2021-06-11] MEDS: Folic Acid 1 MG TAB PO SCH (09:00)
[2021-06-11] MEDS: Dexamethasone 4 mg/ml Vial SLOW IVP SCH ×2 (09:00→21:06)
[2021-06-11] MEDS: Multivit, Therapeutic 1 TAB PO SCH (09:00)
[2021-06-11] MEDS: Pantoprazole 40 MG VIAL IVP SCH (09:01)
[2021-06-11] MEDS ORDERED: Vecuronium 10 MG VIAL ONE (10:00)
[2021-06-11] MEDS: Vecuronium Bromide 50 MG in Sodium Chloride 0.9% 250 ML 250 ML IV SCH ×2 (10:23→23:28)
[2021-06-11] MEDS ORDERED: Dextrose 5% in Water 1,000 ML IV PRN (11:54)
[2021-06-11] MEDS: HumaLOG 300 UNITS/3 ML VIAL SC PRN ×2 (12:17→18:16)
[2021-06-11] MEDS: Cholecalciferol 1,000 UNITS (25 MCG) TAB PO SCH (21:07)
[2021-06-11] MEDS: Zinc Sulfate 220 MG CAP PO SCH (21:07)
[2021-06-11] MEDS: NPH, Human Insulin Isophane 300 UNIT/3 ML VIAL SC SCH (21:08)
[2021-06-12] MEDS: Propofol 1,000 MG/100 ML VIAL IV PRN ×8 (01:43→22:51)
[2021-06-12] MEDS: HumaLOG 300 UNITS/3 ML VIAL SC PRN ×4 (02:09→17:37)
[2021-06-12] MEDS ORDERED: Fentanyl CADD 100 ML ONE ×2 (03:47→16:24)
[2021-06-12] MEDS: Fentanyl CADD 100 ML IV SCH ×2 (03:54→16:28)
[2021-06-12] MEDS: Acetaminophen 650 MG Suppository PR PRN (04:18)
[2021-06-12 04:50] LABS: Band 14 % (5-11); Eosinophils 1 % (0-10); Hemoglobin 9.7 g/dL (12.0-16.0); Lymphocytes 5 % (21-51); MDiff Complete? YES; Mean Corpuscular HGB CONC 32.1 g/dL (32.0-36.0); Mean Corpuscular Hemoglobin 22.6 pg (27.0-31.0); Mean Corpuscular Volume 70.4 fL (78.0-98.0); Metamyelocyte 4 % (0-0); Monocytes 3 % (0-10); Neutrophil 73 % (42-75); Platelet Count 249 thou/uL (130-400); Platelet Morphology Comment Appears Adequate; RBC Distribution Width 30.1 % (11.5-14.5); Red Blood Cell (RBC) Count 4.31 mill/uL (4.20-5.40); White Blood Cell (WBC) Count 18.4 thou/uL (4.8-10.8)
[2021-06-12 04:53] LABS: ALT (SGPT) 29 U/L (8-55); AST (SGOT) 14 U/L (5-34); Albumin 3.6 g/dL (3.5-5.0); Alkaline Phosphatase 62 U/L (40-110); Anion Gap 14 mmol/L (10-20); BUN (Urea Nitrogen) 48 mg/dL (7.0-18.7); Bilirubin, Total 0.6 mg/dL (0.2-1.2); Calc. Creatinine Clearance 82 mL/min (70-130); Carbon Dioxide 24 mmol/L (22-29); Chloride 100 mmol/L (98-107); Globulin 3.8 g/dL (2.4-3.5); Glucose 370 mg/dL (70-105); Magnesium 2.4 mg/dL (1.6-2.6); Phosphorus 3.6 mg/dL (2.3-4.7); Potassium 4.2 mmol/L (3.5-5.1); Protein, Total 7.4 g/dL (6.0-8.3); Sodium 134 mmol/L (136-145)
[2021-06-12] MEDS: Heparin 5,000 UNITS/ML VIAL SC SCH ×3 (05:31→22:50)
[2021-06-12 07:23] LABS: Actual Bicarbonate (HCO3a) 24.4 mEq/L (22-28); Base Excess (BEa) 1.3 mEq/L (-2.0 to +3.0); CO2 Tension 32.8 mmHg (35.0-45.0); Calcium, Ionized (arterial) 1.17 mmol/L (1.12-1.30); Carboxyhemoglobin (COHb) 0.7 gm% (0.0-3.0); Hemoglobin (Hb) 9.8 g/dL (12.0-16.0); O2 Tension (PaO2), arterial 67.2 mmHg (80.0-100.0); Potassium - ABG Lab 4.14 mmol/L (3.70-5.30); pH, Arterial 7.49 (7.35-7.45)
[2021-06-12] MEDS: Pantoprazole 40 MG VIAL IVP SCH (07:46)
[2021-06-12] MEDS: Ascorbic Acid 500 mg Chewable Tablet PO SCH (07:47)
[2021-06-12] MEDS: Dexamethasone 4 mg/ml Vial SLOW IVP SCH ×2 (07:47→19:50)
[2021-06-12] MEDS: Multivit, Therapeutic 1 TAB PO SCH (07:47)
[2021-06-12] MEDS: Folic Acid 1 MG TAB PO SCH (07:47)
[2021-06-12] MEDS: NPH, Human Insulin Isophane 300 UNIT/3 ML VIAL SC SCH ×2 (07:48→19:52)
[2021-06-12 08:06] LABS: Puncture Site RRA
[2021-06-12] MEDS: Cholecalciferol 1,000 UNITS (25 MCG) TAB PO SCH (19:49)
[2021-06-12] MEDS: Lantus 1000 UNITS/10 ML VIAL SC SCH (19:51)
[2021-06-12] MEDS: Zinc Sulfate 220 MG CAP PO SCH (19:52)
[2021-06-12] MEDS: Artificial Tear Sol 15 ML BOT EA EYE PRN (20:00)
[2021-06-13] MEDS: Acetaminophen 650 MG Suppository PR PRN (00:55)
[2021-06-13] MEDS: HumaLOG 300 UNITS/3 ML VIAL SC PRN ×4 (00:55→22:27)
[2021-06-13] MEDS: Propofol 1,000 MG/100 ML VIAL IV PRN ×6 (00:55→20:47)
[2021-06-13 04:23] LABS: ALT (SGPT) 25 U/L (8-55); AST (SGOT) 12 U/L (5-34); Albumin 3.2 g/dL (3.5-5.0); Alkaline Phosphatase 54 U/L (40-110); Anion Gap 11 mmol/L (10-20); BUN (Urea Nitrogen) 46 mg/dL (7.0-18.7); Bilirubin, Total 0.5 mg/dL (0.2-1.2); Calc. Creatinine Clearance 92 mL/min (70-130); Calcium 8.6 mg/dL (7.8-10.44); Carbon Dioxide 26 mmol/L (22-29); Chloride 103 mmol/L (98-107); Globulin 3.4 g/dL (2.4-3.5); Glucose 386 mg/dL (70-105); Magnesium 2.3 mg/dL (1.6-2.6); Phosphorus 3.6 mg/dL (2.3-4.7); Potassium 4.5 mmol/L (3.5-5.1); Protein, Total 6.6 g/dL (6.0-8.3); Sodium 135 mmol/L (136-145)
[2021-06-13] MEDS ORDERED: Fentanyl CADD 100 ML ONE ×2 (04:29→17:52)
[2021-06-13] MEDS: Fentanyl CADD 100 ML IV SCH ×2 (04:31→17:54)
[2021-06-13 05:11] LABS: Hemoglobin 9.3 g/dL (12.0-16.0); MDiff Complete? YES; Mean Corpuscular HGB CONC 30.8 g/dL (32.0-36.0); Mean Corpuscular Hemoglobin 22.4 pg (27.0-31.0); Mean Corpuscular Volume 72.9 fL (78.0-98.0); Platelet Count 232 thou/uL (130-400); RBC Distribution Width 32.7 % (11.5-14.5); Red Blood Cell (RBC) Count 4.13 mill/uL (4.20-5.40); White Blood Cell (WBC) Count 15.9 thou/uL (4.8-10.8)
[2021-06-13 05:12] LABS: Band 13 % (5-11); Hypochromia MODERATE=16-30 cells (100X) (0-5/hpf); Lymphocytes 9 % (21-51); Metamyelocyte 2 % (0-0); Monocytes 2 % (0-10); Myelocyte 3 % (0-0); Neutrophil 71 % (42-75); Platelet Morphology Comment Appears Adequate; Polychromasia SLIGHT = 2-3 cells (100X) (0-2/hpf)
[2021-06-13] MEDS: Heparin 5,000 UNITS/ML VIAL SC SCH ×3 (06:21→22:06)
[2021-06-13 07:10] LABS: Actual Bicarbonate (HCO3a) 22.3 mEq/L (22-28); Base Excess (BEa) -0.6 mEq/L (-2.0 to +3.0); CO2 Tension 30.7 mmHg (35.0-45.0); Carboxyhemoglobin (COHb) 0.1 gm% (0.0-3.0); Hemoglobin (Hb) 10.2 g/dL (12.0-16.0); O2 Tension (PaO2), arterial 70.5 mmHg (80.0-100.0); Potassium - ABG Lab 4.24 mmol/L (3.70-5.30); pH, Arterial 7.48 (7.35-7.45)
[2021-06-13 07:11] LABS: Puncture Site RRA
[2021-06-13 07:13] LABS: ALV-art Gradient 176.325 mmHg (0-20)
[2021-06-13] MEDS: Pantoprazole 40 MG VIAL IVP SCH (08:00)
[2021-06-13] MEDS: Multivit, Therapeutic 1 TAB PO SCH (08:01)
[2021-06-13] MEDS: Dexamethasone 4 mg/ml Vial SLOW IVP SCH ×2 (08:01→20:38)
[2021-06-13] MEDS: Folic Acid 1 MG TAB PO SCH (08:01)
[2021-06-13] MEDS: Ascorbic Acid 500 mg Chewable Tablet PO SCH (08:01)
[2021-06-13] MEDS: NPH, Human Insulin Isophane 300 UNIT/3 ML VIAL SC SCH ×2 (08:02→22:25)
[2021-06-13] MEDS: Lantus 1000 UNITS/10 ML VIAL SC SCH ×2 (08:05→20:40)
[2021-06-13] MEDS: Vecuronium Bromide 50 MG in Sodium Chloride 0.9% 250 ML 250 ML IV SCH (11:28)
[2021-06-13] MEDS: Zinc Sulfate 220 MG CAP PO SCH (20:37)
[2021-06-13] MEDS: Cholecalciferol 1,000 UNITS (25 MCG) TAB PO SCH (20:38)
[2021-06-13] MEDS: Senokot S 8.6-50 MG TAB PO SCH (20:42)
[2021-06-14] MEDS: Propofol 1,000 MG/100 ML VIAL IV PRN ×7 (01:10→22:40)
[2021-06-14] MEDS: HumaLOG 300 UNITS/3 ML VIAL SC PRN ×2 (04:10→09:53)
[2021-06-14 04:27] LABS: #Lymphocytes 0.6 thou/uL (1.20-3.40); #Monocytes 0.4 thou/uL (0.11-0.59); #Neutrophils 12.7 thou/uL (1.40-6.50); %Eosinophils 0.2 % (0.0-10.0); %Lymphocytes 4.2 % (21.0-51.0); %Monocytes 2.7 % (0.0-10.0); %Neutrophils 92.9 % (42.0-75.0); Hemoglobin 9.4 g/dL (12.0-16.0); Mean Corpuscular HGB CONC 31.5 g/dL (32.0-36.0); Mean Corpuscular Hemoglobin 23.6 pg (27.0-31.0); Platelet Count 221 thou/uL (130-400); RBC Distribution Width 34.3 % (11.5-14.5); Red Blood Cell (RBC) Count 3.99 mill/uL (4.20-5.40); White Blood Cell (WBC) Count 13.7 thou/uL (4.8-10.8)
[2021-06-14 04:47] LABS: ALT (SGPT) 20 U/L (8-55); AST (SGOT) 8 U/L (5-34); Albumin 3.2 g/dL (3.5-5.0); Alkaline Phosphatase 48 U/L (40-110); Anion Gap 11 mmol/L (10-20); BUN (Urea Nitrogen) 40 mg/dL (7.0-18.7); Bilirubin, Total 0.5 mg/dL (0.2-1.2); Calc. Creatinine Clearance 95 mL/min (70-130); Carbon Dioxide 26 mmol/L (22-29); Chloride 106 mmol/L (98-107); Globulin 3.3 g/dL (2.4-3.5); Glucose 283 mg/dL (70-105); Magnesium 2.3 mg/dL (1.6-2.6); Phosphorus 3.7 mg/dL (2.3-4.7); Potassium 4.7 mmol/L (3.5-5.1); Protein, Total 6.5 g/dL (6.0-8.3); Sodium 138 mmol/L (136-145)
[2021-06-14] MEDS: Heparin 5,000 UNITS/ML VIAL SC SCH ×3 (05:53→21:02)
[2021-06-14] MEDS ORDERED: Fentanyl CADD 100 ML ONE ×2 (06:21→18:22)
[2021-06-14] MEDS: Fentanyl CADD 100 ML IV SCH ×2 (06:24→18:34)
[2021-06-14 07:27] LABS: Base Excess (BEa) -1.5 mEq/L (-2.0 to +3.0); CO2 Tension 32.7 mmHg (35.0-45.0); Carboxyhemoglobin (COHb) 0.6 gm% (0.0-3.0); Hemoglobin (Hb) 9.9 g/dL (12.0-16.0); O2 Tension (PaO2), arterial 74.7 mmHg (80.0-100.0); Potassium - ABG Lab 4.44 mmol/L (3.70-5.30); pH, Arterial 7.45 (7.35-7.45)
[2021-06-14] MEDS: Vecuronium Bromide 50 MG in Sodium Chloride 0.9% 250 ML 250 ML IV SCH ×2 (07:28→22:40)
[2021-06-14 08:08] LABS: Puncture Site LRA
[2021-06-14 08:09] LABS: ALV-art Gradient 169.625 mmHg (0-20)
[2021-06-14] MEDS: Ascorbic Acid 500 mg Chewable Tablet PO SCH (08:53)
[2021-06-14] MEDS: Folic Acid 1 MG TAB PO SCH (08:53)
[2021-06-14] MEDS: Multivit, Therapeutic 1 TAB PO SCH (08:53)
[2021-06-14] MEDS: Senokot S 8.6-50 MG TAB PO SCH ×2 (08:53→21:07)
[2021-06-14] MEDS: Pantoprazole 40 MG VIAL IVP SCH (08:53)
[2021-06-14] MEDS: Dexamethasone 4 mg/ml Vial SLOW IVP SCH ×2 (08:54→21:02)
[2021-06-14] MEDS: Lantus 1000 UNITS/10 ML VIAL SC SCH ×2 (08:54→21:06)
[2021-06-14] MEDS: Polyethylene Glycol 3350 17 GM Packet PER TUBE SCH (08:54)
[2021-06-14] MEDS: NPH, Human Insulin Isophane 300 UNIT/3 ML VIAL SC SCH ×2 (10:03→21:03)
[2021-06-14] MEDS: Lorazepam 2 MG/ML VIAL SLOW IVP PRN (14:55)
[2021-06-14] MEDS: Cholecalciferol 1,000 UNITS (25 MCG) TAB PO SCH (21:01)
[2021-06-14] MEDS: Zinc Sulfate 220 MG CAP PO SCH (21:02)
[2021-06-15] MEDS: Lorazepam 2 MG/ML VIAL SLOW IVP PRN ×2 (00:18→16:07)
[2021-06-15] MEDS: Propofol 1,000 MG/100 ML VIAL IV PRN ×5 (02:15→19:14)
[2021-06-15] MEDS: HumaLOG 300 UNITS/3 ML VIAL SC PRN ×3 (04:35→15:02)
[2021-06-15 05:18] LABS: ALT (SGPT) 20 U/L (8-55); AST (SGOT) 9 U/L (5-34); Albumin 3.2 g/dL (3.5-5.0); Alkaline Phosphatase 56 U/L (40-110); Anion Gap 10 mmol/L (10-20); BUN (Urea Nitrogen) 35 mg/dL (7.0-18.7); Bilirubin, Total 0.5 mg/dL (0.2-1.2); Calc. Creatinine Clearance 99 mL/min (70-130); Calcium 8.8 mg/dL (7.8-10.44); Carbon Dioxide 24 mmol/L (22-29); Chloride 106 mmol/L (98-107); Globulin 3.3 g/dL (2.4-3.5); Glucose 251 mg/dL (70-105); Magnesium 2.1 mg/dL (1.6-2.6); Phosphorus 3.8 mg/dL (2.3-4.7); Potassium 4.8 mmol/L (3.5-5.1); Protein, Total 6.5 g/dL (6.0-8.3); Sodium 135 mmol/L (136-145)
[2021-06-15 05:36] LABS: Band 6 % (5-11); Hemoglobin 9.6 g/dL (12.0-16.0); Hypochromia SLIGHT = 6-15 cells (100X) (0-5/hpf); Lymphocytes 3 % (21-51); MDiff Complete? YES; Mean Corpuscular HGB CONC 29.9 g/dL (32.0-36.0); Mean Corpuscular Hemoglobin 22.7 pg (27.0-31.0); Mean Platelet Volume 7.6 fL (7.4-10.4); Metamyelocyte 1 % (0-0); Microcytosis SLIGHT = 6-15 cells (100X) (0-5/hpf); Neutrophil 90 % (42-75); Platelet Count 207 thou/uL (130-400); Platelet Morphology Comment Appears Adequate; RBC Distribution Width 34.2 % (11.5-14.5); Red Blood Cell (RBC) Count 4.22 mill/uL (4.20-5.40); White Blood Cell (WBC) Count 27.6 thou/uL (4.8-10.8)
[2021-06-15] MEDS ORDERED: Norepinephrine 8 MG/0.9% NS 0 ML ONE (05:56)
[2021-06-15] MEDS: Heparin 5,000 UNITS/ML VIAL SC SCH ×3 (06:24→21:55)
[2021-06-15] MEDS ORDERED: Fentanyl CADD 100 ML ONE ×2 (07:10→19:42)
[2021-06-15] MEDS: Fentanyl CADD 100 ML IV SCH ×2 (07:13→19:47)
[2021-06-15 07:46] LABS: Actual Bicarbonate (HCO3a) 21.3 mEq/L (22-28); Base Excess (BEa) -2.9 mEq/L (-2.0 to +3.0); CO2 Tension 34.6 mmHg (35.0-45.0); Calcium, Ionized (arterial) 1.24 mmol/L (1.12-1.30); Carboxyhemoglobin (COHb) 0.9 gm% (0.0-3.0); Hemoglobin (Hb) 10.3 g/dL (12.0-16.0); O2 Tension (PaO2), arterial 63.6 mmHg (80.0-100.0); Potassium - ABG Lab 4.64 mmol/L (3.70-5.30); pH, Arterial 7.41 (7.35-7.45)
[2021-06-15 07:50] LABS: Puncture Site RRA
[2021-06-15] MEDS: Lantus 1000 UNITS/10 ML VIAL SC SCH (08:20)
[2021-06-15] MEDS: Dexamethasone 4 mg/ml Vial SLOW IVP SCH ×2 (08:24→21:54)
[2021-06-15] MEDS: Folic Acid 1 MG TAB PO SCH (08:24)
[2021-06-15] MEDS: Ascorbic Acid 500 mg Chewable Tablet PO SCH (08:24)
[2021-06-15] MEDS: Multivit, Therapeutic 1 TAB PO SCH (08:24)
[2021-06-15] MEDS: Polyethylene Glycol 3350 17 GM Packet PER TUBE SCH (08:24)
[2021-06-15] MEDS: Senokot S 8.6-50 MG TAB PO SCH ×2 (08:24→21:55)
[2021-06-15] MEDS: Pantoprazole 40 MG VIAL IVP SCH (08:24)
[2021-06-15] MEDS ORDERED: Piperacillin/Tazobactam 3.375 GM in Sodium Chloride 0.9% 100 ML IVPB SCH (08:45)
[2021-06-15] MEDS ORDERED: Cefepime 2 GM in Sodium Chloride 0.9% 100 ML IVPB SCH (09:00)
[2021-06-15] MEDS: Vancomycin HCl 1.75 GM in Sodium Chloride 0.9% 500 ML IVPB SCH ×2 (10:20→21:55)
[2021-06-15] MEDS: NPH, Human Insulin Isophane 300 UNIT/3 ML VIAL SC SCH ×5 (10:21→21:56)
[2021-06-15] MEDS: Vecuronium Bromide 50 MG in Sodium Chloride 0.9% 250 ML 250 ML IV SCH (11:55)
[2021-06-15 19:37] LABS: Bacteria/HPF None Seen HPF (None Seen); Bilirubin Negative (Negative); Blood, Urine Negative (Negative); Clarity Turbid (Clear); Glucose, Urine (Dipstick) Normal (Negative); Ketone, Urine Negative (Negative); Leukocyte 500 Leu/uL (Negative); Nitrite Negative (Negative); Protein, Urine (Dipstick) 20 mg/dL (Neg-Trace); Specific Gravity, Urine 1.023 (1.002-1.036); Urobilinogen Normal mg/dL (Less than 2); WBC/HPF Greater than 50 HPF (0-3); Yeast-Budding 4+ HPF (None Seen); pH, Urine 5.5 (5.0-9.0)
[2021-06-15 19:43] LABS: Squamous Epithelial 0-3 HPF (0-3)
[2021-06-15 19:44] LABS: Yeast-Hyphae 3+ HPF (None Seen)
[2021-06-15 19:46] LABS: Urine Culture Reflex Yes Yes
[2021-06-15] MEDS: Cholecalciferol 1,000 UNITS (25 MCG) TAB PO SCH (21:54)
[2021-06-15] MEDS: Zinc Sulfate 220 MG CAP PO SCH (21:55)
[2021-06-16] MEDS: Lorazepam 2 MG/ML VIAL SLOW IVP PRN ×2 (00:52→09:10)
[2021-06-16] MEDS: Propofol 1,000 MG/100 ML VIAL IV PRN ×5 (02:20→22:01)
[2021-06-16] MEDS: HumaLOG 300 UNITS/3 ML VIAL SC PRN ×3 (04:20→22:00)
[2021-06-16 04:43] LABS: #Basophils 0.1 thou/uL (0.0-0.2); #Lymphocytes 0.3 thou/uL (1.20-3.40); #Monocytes 0.4 thou/uL (0.11-0.59); #Neutrophils 13.5 thou/uL (1.40-6.50); %Basophils 0.5 % (0.0-1.0); %Eosinophils 0.1 % (0.0-10.0); %Lymphocytes 2.1 % (21.0-51.0); %Monocytes 2.7 % (0.0-10.0); %Neutrophils 94.6 % (42.0-75.0); Hemoglobin 9.4 g/dL (12.0-16.0); Mean Corpuscular HGB CONC 28.6 g/dL (32.0-36.0); Mean Corpuscular Hemoglobin 21.9 pg (27.0-31.0); Mean Corpuscular Volume 76.5 fL (78.0-98.0); Mean Platelet Volume 8.8 fL (7.4-10.4); Platelet Count 188 thou/uL (130-400); RBC Distribution Width 34.1 % (11.5-14.5); Red Blood Cell (RBC) Count 4.28 mill/uL (4.20-5.40); White Blood Cell (WBC) Count 14.3 thou/uL (4.8-10.8)
[2021-06-16 04:57] LABS: Phosphorus 3.7 mg/dL (2.3-4.7)
[2021-06-16 05:00] LABS: ALT (SGPT) 19 U/L (8-55); AST (SGOT) 9 U/L (5-34); Albumin 3.1 g/dL (3.5-5.0); Alkaline Phosphatase 55 U/L (40-110); Anion Gap 11 mmol/L (10-20); BUN (Urea Nitrogen) 41 mg/dL (7.0-18.7); Bilirubin, Total 0.4 mg/dL (0.2-1.2); Calc. Creatinine Clearance 114 mL/min (70-130); Calcium 8.7 mg/dL (7.8-10.44); Carbon Dioxide 21 mmol/L (22-29); Chloride 108 mmol/L (98-107); Globulin 3.1 g/dL (2.4-3.5); Glucose 236 mg/dL (70-105); Magnesium 2.1 mg/dL (1.6-2.6); Potassium 4.8 mmol/L (3.5-5.1); Protein, Total 6.2 g/dL (6.0-8.3); Sodium 135 mmol/L (136-145)
[2021-06-16] MEDS: NPH, Human Insulin Isophane 300 UNIT/3 ML VIAL SC SCH ×4 (05:17→23:00)
[2021-06-16] MEDS: Heparin 5,000 UNITS/ML VIAL SC SCH ×3 (05:17→20:39)
[2021-06-16 07:44] LABS: Actual Bicarbonate (HCO3a) 21.2 mEq/L (22-28); Base Excess (BEa) -4.7 mEq/L (-2.0 to +3.0); CO2 Tension 42.5 mmHg (35.0-45.0); Carboxyhemoglobin (COHb) 0.6 gm% (0.0-3.0); Hemoglobin (Hb) 11.8 g/dL (12.0-16.0); O2 Tension (PaO2), arterial 77.5 mmHg (80.0-100.0); Potassium - ABG Lab 4.68 mmol/L (3.70-5.30); pH, Arterial 7.32 (7.35-7.45)
[2021-06-16 07:49] LABS: ALV-art Gradient 118.925 mmHg (0-20); Puncture Site RRA
[2021-06-16] MEDS: Vecuronium 10 MG VIAL IVP PRN (08:02)
[2021-06-16] MEDS ORDERED: Fentanyl CADD 100 ML ONE (08:35)
[2021-06-16] MEDS: Fentanyl CADD 100 ML IV SCH (08:52)
[2021-06-16] MEDS: Senokot S 8.6-50 MG TAB PO SCH ×2 (09:40→20:39)
[2021-06-16] MEDS: Folic Acid 1 MG TAB PO SCH (09:40)
[2021-06-16] MEDS: Ascorbic Acid 500 mg Chewable Tablet PO SCH (09:41)
[2021-06-16] MEDS: Polyethylene Glycol 3350 17 GM Packet PER TUBE SCH (09:41)
[2021-06-16] MEDS: Pantoprazole 40 MG VIAL IVP SCH (09:43)
[2021-06-16] MEDS: Multivit, Therapeutic 1 TAB PO SCH (09:43)
[2021-06-16] MEDS: Dexamethasone 4 mg/ml Vial SLOW IVP SCH ×2 (09:43→20:38)
[2021-06-16] MEDS: Vancomycin HCl 1.75 GM in Sodium Chloride 0.9% 500 ML IVPB SCH ×2 (09:43→20:38)
[2021-06-16] MEDS: Cholecalciferol 1,000 UNITS (25 MCG) TAB PO SCH (20:40)
[2021-06-16] MEDS: Zinc Sulfate 220 MG CAP PO SCH (20:40)
[2021-06-16 21:03] LABS: Vancomycin, Trough 33.1 ug/mL
[2021-06-17] MEDS: NPH, Human Insulin Isophane 300 UNIT/3 ML VIAL SC SCH ×4 (04:19→20:53)
[2021-06-17 04:41] LABS: ALT (SGPT) 28 U/L (8-55); AST (SGOT) 18 U/L (5-34); Albumin 3.4 g/dL (3.5-5.0); Alkaline Phosphatase 59 U/L (40-110); Anion Gap 13 mmol/L (10-20); BUN (Urea Nitrogen) 41 mg/dL (7.0-18.7); Bilirubin, Total 0.5 mg/dL (0.2-1.2); Calc. Creatinine Clearance 105 mL/min (70-130); Calcium 9.1 mg/dL (7.8-10.44); Carbon Dioxide 20 mmol/L (22-29); Chloride 107 mmol/L (98-107); Globulin 3.5 g/dL (2.4-3.5); Glucose 195 mg/dL (70-105); Magnesium 2.2 mg/dL (1.6-2.6); Phosphorus 3.6 mg/dL (2.3-4.7); Potassium 5.1 mmol/L (3.5-5.1); Protein, Total 6.9 g/dL (6.0-8.3); Sodium 135 mmol/L (136-145)
[2021-06-17 04:49] LABS: #Lymphocytes 0.3 thou/uL (1.20-3.40); #Monocytes 0.5 thou/uL (0.11-0.59); #Neutrophils 12.4 thou/uL (1.40-6.50); %Basophils 0.2 % (0.0-1.0); %Eosinophils 0.1 % (0.0-10.0); %Lymphocytes 2.5 % (21.0-51.0); %Monocytes 3.8 % (0.0-10.0); %Neutrophils 93.4 % (42.0-75.0); Anisocytosis MODERATE=16-30 cells (100X) (0-5/hpf); Band 5 % (5-11); Hemoglobin 10.3 g/dL (12.0-16.0); Hypochromia MODERATE=16-30 cells (100X) (0-5/hpf); Large Platelets SLIGHT; MDiff Complete? YES; Mean Corpuscular Hemoglobin 22.4 pg (27.0-31.0); Mean Corpuscular Volume 77.5 fL (78.0-98.0); Mean Platelet Volume 10.6 fL (7.4-10.4); Microcytosis SLIGHT = 6-15 cells (100X) (0-5/hpf); Monocytes 2 % (0-10); Neutrophil 93 % (42-75); Platelet Count 181 thou/uL (130-400); Platelet Morphology Comment Appears Adequate; Red Blood Cell (RBC) Count 4.58 mill/uL (4.20-5.40); White Blood Cell (WBC) Count 13.2 thou/uL (4.8-10.8)
[2021-06-17] MEDS: HumaLOG 300 UNITS/3 ML VIAL SC PRN ×3 (06:19→10:25)
[2021-06-17 07:34] LABS: Base Excess (BEa) -4.2 mEq/L (-2.0 to +3.0); CO2 Tension 33.2 mmHg (35.0-45.0); Calcium, Ionized (arterial) 1.28 mmol/L (1.12-1.30); O2 Tension (PaO2), arterial 88.6 mmHg (80.0-100.0); Potassium - ABG Lab 4.74 mmol/L (3.70-5.30)
[2021-06-17] MEDS ORDERED: Fentanyl CADD 0 ML ONE ×2 (07:46→23:53)
[2021-06-17 08:06] LABS: Puncture Site LRA
[2021-06-17] MEDS: Pantoprazole 40 MG VIAL IVP SCH (08:24)
[2021-06-17] MEDS: Dexamethasone 4 mg/ml Vial SLOW IVP SCH ×2 (08:24→20:50)
[2021-06-17] MEDS: Heparin 5,000 UNITS/ML VIAL SC SCH ×3 (08:25→20:49)
[2021-06-17] MEDS: Polyethylene Glycol 3350 17 GM Packet PER TUBE SCH (08:25)
[2021-06-17] MEDS: Ascorbic Acid 500 mg Chewable Tablet PO SCH (08:25)
[2021-06-17] MEDS: Multivit, Therapeutic 1 TAB PO SCH (08:25)
[2021-06-17] MEDS: Folic Acid 1 MG TAB PO SCH (08:25)
[2021-06-17] MEDS: Senokot S 8.6-50 MG TAB PO SCH ×2 (08:25→20:49)
[2021-06-17] MEDS: Propofol 1,000 MG/100 ML VIAL IV PRN ×3 (11:00→16:16)
[2021-06-17] MEDS: Fentanyl CADD 100 ML IV SCH (20:48)
[2021-06-17] MEDS: Zinc Sulfate 220 MG CAP PO SCH (20:49)
[2021-06-17] MEDS: Cholecalciferol 1,000 UNITS (25 MCG) TAB PO SCH (20:49)
[2021-06-17] MEDS ORDERED: Vancomycin HCl 1 GM in Admixture Fee 1 EACH IVPB SCH (21:00)
[2021-06-17 21:51] LABS: Vancomycin, Random 14.1 ug/mL (See Comment)
[2021-06-18] MEDS: Vancomycin HCl 1.75 GM in Sodium Chloride 0.9% 500 ML IVPB SCH (00:26)
[2021-06-18] MEDS: Propofol 500 MG/50 ML VIAL IV PRN ×4 (01:46→09:42)
[2021-06-18 04:51] LABS: ALT (SGPT) 21 U/L (8-55); AST (SGOT) 7 U/L (5-34); Albumin 3.1 g/dL (3.5-5.0); Alkaline Phosphatase 52 U/L (40-110); Anion Gap 11 mmol/L (10-20); BUN (Urea Nitrogen) 44 mg/dL (7.0-18.7); Bilirubin, Total 0.5 mg/dL (0.2-1.2); Calc. Creatinine Clearance 111 mL/min (70-130); Calcium 8.6 mg/dL (7.8-10.44); Carbon Dioxide 20 mmol/L (22-29); Chloride 108 mmol/L (98-107); Glucose 227 mg/dL (70-105); Magnesium 1.9 mg/dL (1.6-2.6); Phosphorus 2.8 mg/dL (2.3-4.7); Potassium 4.7 mmol/L (3.5-5.1); Protein, Total 6.1 g/dL (6.0-8.3); Sodium 134 mmol/L (136-145)
[2021-06-18] MEDS: NPH, Human Insulin Isophane 300 UNIT/3 ML VIAL SC SCH ×4 (04:59→21:35)
[2021-06-18] MEDS: Heparin 5,000 UNITS/ML VIAL SC SCH ×3 (05:01→21:32)
[2021-06-18 05:06] LABS: #Lymphocytes 0.3 thou/uL (1.20-3.40); #Monocytes 0.4 thou/uL (0.11-0.59); #Neutrophils 8.4 thou/uL (1.40-6.50); %Basophils 0.5 % (0.0-1.0); %Eosinophils 0.3 % (0.0-10.0); %Monocytes 4.8 % (0.0-10.0); %Neutrophils 91.6 % (42.0-75.0); Mean Corpuscular HGB CONC 29.6 g/dL (32.0-36.0); Mean Corpuscular Hemoglobin 22.7 pg (27.0-31.0); Mean Corpuscular Volume 76.7 fL (78.0-98.0); Mean Platelet Volume 8.8 fL (7.4-10.4); Platelet Count 166 thou/uL (130-400); RBC Distribution Width 34.6 % (11.5-14.5); Red Blood Cell (RBC) Count 3.96 mill/uL (4.20-5.40); White Blood Cell (WBC) Count 9.2 thou/uL (4.8-10.8)
[2021-06-18 08:02] LABS: Base Excess (BEa) -4.3 mEq/L (-2.0 to +3.0); Calcium, Ionized (arterial) 1.22 mmol/L (1.12-1.30); Carboxyhemoglobin (COHb) 0.8 gm% (0.0-3.0); Hemoglobin (Hb) 9.9 g/dL (12.0-16.0); O2 Tension (PaO2), arterial 61.9 mmHg (80.0-100.0); pH, Arterial 7.44 (7.35-7.45)
[2021-06-18] MEDS: Senokot S 8.6-50 MG TAB PO SCH ×2 (08:10→21:17)
[2021-06-18] MEDS: Folic Acid 1 MG TAB PO SCH (08:10)
[2021-06-18] MEDS: Multivit, Therapeutic 1 TAB PO SCH (08:10)
[2021-06-18] MEDS: Ascorbic Acid 500 mg Chewable Tablet PO SCH (08:11)
[2021-06-18] MEDS: Pantoprazole 40 MG VIAL IVP SCH (08:11)
[2021-06-18] MEDS: Dexamethasone 4 mg/ml Vial SLOW IVP SCH ×2 (08:11→20:22)
[2021-06-18] MEDS: Polyethylene Glycol 3350 17 GM Packet PER TUBE SCH (08:11)
[2021-06-18 08:42] LABS: Puncture Site LRA
[2021-06-18] MEDS: HumaLOG 300 UNITS/3 ML VIAL SC PRN ×3 (09:21→21:36)
[2021-06-18] MEDS ORDERED: Fentanyl CADD 100 ML ONE (09:37)
[2021-06-18] MEDS: Fentanyl CADD 100 ML IV SCH (09:42)
[2021-06-18] MEDS ORDERED: Magnesium 2 GM/50 ML 2 GM in Premix Bag 1 BAG IVPB SCH (15:00)
[2021-06-18] MEDS: Propofol 1,000 MG/100 ML VIAL IV PRN (17:07)
[2021-06-18] MEDS: Cholecalciferol 1,000 UNITS (25 MCG) TAB PO SCH (20:23)
[2021-06-18] MEDS: Zinc Sulfate 220 MG CAP PO SCH (20:23)
[2021-06-19] MEDS: Propofol 1,000 MG/100 ML VIAL IV PRN ×4 (00:08→21:48)
[2021-06-19] MEDS: Vancomycin HCl 1.75 GM in Sodium Chloride 0.9% 500 ML IVPB SCH (00:21)
[2021-06-19] MEDS: Fentanyl CADD 100 ML IV SCH ×2 (02:09→20:58)
[2021-06-19 04:31] LABS: #Lymphocytes 0.4 thou/uL (1.20-3.40); #Monocytes 0.7 thou/uL (0.11-0.59); #Neutrophils 10.3 thou/uL (1.40-6.50); %Eosinophils 0.2 % (0.0-10.0); %Lymphocytes 3.7 % (21.0-51.0); %Monocytes 6.4 % (0.0-10.0); %Neutrophils 89.8 % (42.0-75.0); Hemoglobin 10.3 g/dL (12.0-16.0); Mean Corpuscular HGB CONC 30.6 g/dL (32.0-36.0); Mean Corpuscular Hemoglobin 23.6 pg (27.0-31.0); Mean Platelet Volume 9.6 fL (7.4-10.4); Platelet Count 164 thou/uL (130-400); RBC Distribution Width 34.7 % (11.5-14.5); Red Blood Cell (RBC) Count 4.35 mill/uL (4.20-5.40); White Blood Cell (WBC) Count 11.5 thou/uL (4.8-10.8)
[2021-06-19 04:35] LABS: ALT (SGPT) 21 U/L (8-55); AST (SGOT) 10 U/L (5-34); Albumin 3.4 g/dL (3.5-5.0); Alkaline Phosphatase 59 U/L (40-110); Anion Gap 14 mmol/L (10-20); BUN (Urea Nitrogen) 43 mg/dL (7.0-18.7); Bilirubin, Total 0.6 mg/dL (0.2-1.2); Calc. Creatinine Clearance 0 mL/min (70-130); Calcium 9.1 mg/dL (7.8-10.44); Carbon Dioxide 20 mmol/L (22-29); Chloride 108 mmol/L (98-107); Globulin 3.1 g/dL (2.4-3.5); Glucose 214 mg/dL (70-105); Magnesium 2.3 mg/dL (1.6-2.6); Potassium 4.8 mmol/L (3.5-5.1); Protein, Total 6.5 g/dL (6.0-8.3); Sodium 137 mmol/L (136-145)
[2021-06-19 04:36] LABS: Phosphorus 3.3 mg/dL (2.3-4.7)
[2021-06-19] MEDS: NPH, Human Insulin Isophane 300 UNIT/3 ML VIAL SC SCH ×4 (05:44→20:59)
[2021-06-19] MEDS: Heparin 5,000 UNITS/ML VIAL SC SCH ×3 (05:59→21:53)
[2021-06-19] MEDS: Levothyroxine Sodium 88 MCG TAB PO SCH (06:00)
[2021-06-19] MEDS: Acetaminophen 650 MG Suppository PR PRN (07:00)
[2021-06-19 07:47] LABS: Actual Bicarbonate (HCO3a) 20.6 mEq/L (22-28); Base Excess (BEa) -2.3 mEq/L (-2.0 to +3.0); CO2 Tension 29.1 mmHg (35.0-45.0); Calcium, Ionized (arterial) 1.19 mmol/L (1.12-1.30); Carboxyhemoglobin (COHb) 0.6 gm% (0.0-3.0); Hemoglobin (Hb) 10.4 g/dL (12.0-16.0); Potassium - ABG Lab 4.31 mmol/L (3.70-5.30); pH, Arterial 7.47 (7.35-7.45)
[2021-06-19 08:05] LABS: ALV-art Gradient 158.075 mmHg (0-20); O2 Tension (PaO2), arterial 55.1 mmHg (80.0-100.0); Puncture Site LRA
[2021-06-19] MEDS: Pantoprazole 40 MG VIAL IVP SCH (08:11)
[2021-06-19] MEDS: Dexamethasone 4 mg/ml Vial SLOW IVP SCH ×2 (08:11→20:58)
[2021-06-19] MEDS: Polyethylene Glycol 3350 17 GM Packet PER TUBE SCH (08:11)
[2021-06-19] MEDS: Ascorbic Acid 500 mg Chewable Tablet PO SCH (08:12)
[2021-06-19] MEDS: Multivit, Therapeutic 1 TAB PO SCH (08:12)
[2021-06-19] MEDS: Folic Acid 1 MG TAB PO SCH (08:12)
[2021-06-19] MEDS: Senokot S 8.6-50 MG TAB PO SCH (08:12)
[2021-06-19] MEDS: HumaLOG 300 UNITS/3 ML VIAL SC PRN ×2 (09:33→15:22)
[2021-06-19] MEDS: fentaNYL 75 mcg/hour Patch TD SCH (13:41)
[2021-06-19] MEDS: Cholecalciferol 1,000 UNITS (25 MCG) TAB PO SCH (20:57)
[2021-06-19] MEDS: Zinc Sulfate 220 MG CAP PO SCH (20:59)
[2021-06-19] MEDS: Vecuronium 10 MG VIAL IVP PRN (21:54)
[2021-06-19 22:44] LABS: Vancomycin, Trough 15.6 ug/mL
[2021-06-20] MEDS: Vancomycin HCl 1.75 GM in Sodium Chloride 0.9% 500 ML IVPB SCH ×2 (01:11→23:44)
[2021-06-20] MEDS: Senokot S 8.6-50 MG TAB PO SCH ×3 (01:11→20:06)
[2021-06-20] MEDS: Lorazepam 2 MG/ML VIAL SLOW IVP PRN ×2 (01:13→04:00)
[2021-06-20] MEDS: NPH, Human Insulin Isophane 300 UNIT/3 ML VIAL SC SCH ×4 (04:00→23:42)
[2021-06-20 05:12] LABS: #Lymphocytes 0.2 thou/uL (1.20-3.40); #Monocytes 0.8 thou/uL (0.11-0.59); %Basophils 0.1 % (0.0-1.0); %Eosinophils 0.2 % (0.0-10.0); %Lymphocytes 2.2 % (21.0-51.0); %Monocytes 7.8 % (0.0-10.0); %Neutrophils 89.6 % (42.0-75.0); Anisocytosis MODERATE=16-30 cells (100X) (0-5/hpf); Hypochromia SLIGHT = 6-15 cells (100X) (0-5/hpf); Large Platelets SLIGHT; MDiff Complete? YES; Mean Corpuscular HGB CONC 29.4 g/dL (32.0-36.0); Mean Corpuscular Hemoglobin 23.3 pg (27.0-31.0); Mean Corpuscular Volume 79.2 fL (78.0-98.0); Mean Platelet Volume 11.1 fL (7.4-10.4); Microcytosis SLIGHT = 6-15 cells (100X) (0-5/hpf); Platelet Count 164 thou/uL (130-400); Platelet Morphology Comment Appears Adequate; RBC Distribution Width 34.8 % (11.5-14.5); Red Blood Cell (RBC) Count 4.27 mill/uL (4.20-5.40); White Blood Cell (WBC) Count 10.1 thou/uL (4.8-10.8)
[2021-06-20] MEDS: Heparin 5,000 UNITS/ML VIAL SC SCH ×3 (06:03→23:42)
[2021-06-20] MEDS: Levothyroxine Sodium 88 MCG TAB PO SCH (06:05)
[2021-06-20] MEDS: Ascorbic Acid 500 mg Chewable Tablet PO SCH (08:57)
[2021-06-20] MEDS: Propofol 1,000 MG/100 ML VIAL IV PRN ×4 (08:57→23:46)
[2021-06-20 08:58] LABS: ALT (SGPT) 21 U/L (8-55); AST (SGOT) 10 U/L (5-34); Albumin 3.4 g/dL (3.5-5.0); Alkaline Phosphatase 54 U/L (40-110); Anion Gap 12 mmol/L (10-20); BUN (Urea Nitrogen) 39 mg/dL (7.0-18.7); Bilirubin, Total 0.4 mg/dL (0.2-1.2); Calc. Creatinine Clearance 131 mL/min (70-130); Carbon Dioxide 21 mmol/L (22-29); Chloride 110 mmol/L (98-107); Glucose 158 mg/dL (70-105); Magnesium 1.8 mg/dL (1.6-2.6); Phosphorus 4.5 mg/dL (2.3-4.7); Potassium 4.8 mmol/L (3.5-5.1); Protein, Total 6.4 g/dL (6.0-8.3); Sodium 138 mmol/L (136-145)
[2021-06-20] MEDS: Pantoprazole 40 MG VIAL IVP SCH (08:58)
[2021-06-20] MEDS: Dexamethasone 4 mg/ml Vial SLOW IVP SCH ×2 (08:58→20:06)
[2021-06-20] MEDS: Polyethylene Glycol 3350 17 GM Packet PER TUBE SCH (08:58)
[2021-06-20] MEDS: Folic Acid 1 MG TAB PO SCH (08:58)
[2021-06-20] MEDS: Multivit, Therapeutic 1 TAB PO SCH (08:58)
[2021-06-20 09:16] LABS: Actual Bicarbonate (HCO3a) 21.8 mEq/L (22-28); Base Excess (BEa) -5.4 mEq/L (-2.0 to +3.0); CO2 Tension 50.1 mmHg (35.0-45.0); Calcium, Ionized (arterial) 1.28 mmol/L (1.12-1.30); Carboxyhemoglobin (COHb) 1.1 gm% (0.0-3.0); Potassium - ABG Lab 4.64 mmol/L (3.70-5.30); pH, Arterial 7.26 (7.35-7.45)
[2021-06-20] MEDS ORDERED: Magnesium 2 GM/50 ML 2 GM in Premix Bag 1 BAG IVPB SCH (10:00)
[2021-06-20 10:19] LABS: O2 Tension (PaO2), arterial 54.8 mmHg (80.0-100.0)
[2021-06-20 10:20] LABS: ALV-art Gradient 132.125 mmHg (0-20); Puncture Site LRA
[2021-06-20] MEDS: HumaLOG 300 UNITS/3 ML VIAL SC PRN ×2 (12:00→16:27)
[2021-06-20] MEDS ORDERED: Fentanyl CADD 0 ML ONE (13:54)
[2021-06-20] MEDS: Fentanyl CADD 100 ML IV SCH (14:48)
[2021-06-20] MEDS: Cholecalciferol 1,000 UNITS (25 MCG) TAB PO SCH (20:06)
[2021-06-20] MEDS: Zinc Sulfate 220 MG CAP PO SCH (20:07)
[2021-06-20] MEDS ORDERED: Propofol 500 MG/50 ML VIAL IV PRN (21:10)
[2021-06-21] MEDS: NPH, Human Insulin Isophane 300 UNIT/3 ML VIAL SC SCH ×4 (03:56→22:21)
[2021-06-21] MEDS: HumaLOG 300 UNITS/3 ML VIAL SC PRN ×4 (03:57→22:22)
[2021-06-21] MEDS: Propofol 1,000 MG/100 ML VIAL IV PRN ×5 (04:09→22:12)
[2021-06-21 04:40] LABS: ALT (SGPT) 16 U/L (8-55); AST (SGOT) 7 U/L (5-34); Albumin 3.2 g/dL (3.5-5.0); Alkaline Phosphatase 52 U/L (40-110); Anion Gap 13 mmol/L (10-20); BUN (Urea Nitrogen) 41 mg/dL (7.0-18.7); Bilirubin, Total 0.4 mg/dL (0.2-1.2); Calc. Creatinine Clearance 117 mL/min (70-130); Calcium 8.7 mg/dL (7.8-10.44); Carbon Dioxide 19 mmol/L (22-29); Chloride 108 mmol/L (98-107); Globulin 2.8 g/dL (2.4-3.5); Glucose 213 mg/dL (70-105); Phosphorus 4.2 mg/dL (2.3-4.7); Potassium 5.3 mmol/L (3.5-5.1); Sodium 135 mmol/L (136-145)
[2021-06-21] MEDS: Levothyroxine Sodium 88 MCG TAB PO SCH (05:18)
[2021-06-21] MEDS: Heparin 5,000 UNITS/ML VIAL SC SCH ×3 (05:18→22:12)
[2021-06-21] MEDS ORDERED: Magnesium 2 GM/50 ML 2 GM in Premix Bag 1 BAG IVPB SCH (05:30)
[2021-06-21] MEDS: Dexamethasone 4 mg/ml Vial SLOW IVP SCH ×2 (08:04→20:10)
[2021-06-21] MEDS: Senokot S 8.6-50 MG TAB PO SCH ×2 (08:04→20:11)
[2021-06-21] MEDS: Multivit, Therapeutic 1 TAB PO SCH (08:04)
[2021-06-21] MEDS: Pantoprazole 40 MG VIAL IVP SCH (08:04)
[2021-06-21] MEDS: Folic Acid 1 MG TAB PO SCH (08:04)
[2021-06-21] MEDS: Ascorbic Acid 500 mg Chewable Tablet PO SCH (08:04)
[2021-06-21 08:29] LABS: Actual Bicarbonate (HCO3a) 21.9 mEq/L (22-28); Base Excess (BEa) -5.3 mEq/L (-2.0 to +3.0); CO2 Tension 50.9 mmHg (35.0-45.0); Calcium, Ionized (arterial) 1.25 mmol/L (1.12-1.30); Carboxyhemoglobin (COHb) 0.8 gm% (0.0-3.0); Hemoglobin (Hb) 10.5 g/dL (12.0-16.0); O2 Tension (PaO2), arterial 62.2 mmHg (80.0-100.0); Potassium - ABG Lab 4.92 mmol/L (3.70-5.30)
[2021-06-21 08:30] LABS: pH, Arterial 7.25 (7.35-7.45)
[2021-06-21 08:31] LABS: ALV-art Gradient 230.675 mmHg (0-20); Puncture Site RRA
[2021-06-21] MEDS: Polyethylene Glycol 3350 17 GM Packet PER TUBE SCH (09:14)
[2021-06-21] MEDS: Pantoprazole 40 MG GRANULES PACKET PER TUBE SCH (09:15)
[2021-06-21] MEDS ORDERED: Fentanyl CADD 100 ML ONE (10:08)
[2021-06-21] MEDS: Fentanyl CADD 100 ML IV SCH (10:12)
[2021-06-21 10:38] LABS: Anisocytosis MODERATE=16-30 cells (100X) (0-5/hpf); Band 23 % (5-11); Basophilic Stippling SLIGHT = 1-2 cells (100X) (None Seen); Hemoglobin 9.9 g/dL (12.0-16.0); Hypochromia SLIGHT = 6-15 cells (100X) (0-5/hpf); Lymphocytes 6 % (21-51); MDiff Complete? YES; Mean Corpuscular Hemoglobin 24.8 pg (27.0-31.0); Mean Corpuscular Volume 80.2 fL (78.0-98.0); Mean Platelet Volume 9.5 fL (7.4-10.4); Microcytosis SLIGHT = 6-15 cells (100X) (0-5/hpf); Monocytes 9 % (0-10); Neutrophil 62 % (42-75); Platelet Count 123 thou/uL (130-400); Platelet Morphology Comment Appears Decreased; Polychromasia MODERATE = 3-4 cells (100X) (0-2/hpf); RBC Distribution Width 34.4 % (11.5-14.5); Red Blood Cell (RBC) Count 3.97 mill/uL (4.20-5.40); White Blood Cell (WBC) Count 6.4 thou/uL (4.8-10.8)
[2021-06-21] MEDS: Acetaminophen 650 MG Suppository PR PRN (14:35)
[2021-06-21] MEDS: Cholecalciferol 1,000 UNITS (25 MCG) TAB PO SCH (20:09)
[2021-06-21] MEDS: Zinc Sulfate 220 MG CAP PO SCH (20:11)
[2021-06-21] MEDS: Vancomycin HCl 1.75 GM in Sodium Chloride 0.9% 500 ML IVPB SCH (22:13)
[2021-06-21 22:44] LABS: Vancomycin, Trough 15.2 ug/mL
[2021-06-22] MEDS: Propofol 1,000 MG/100 ML VIAL IV PRN ×5 (02:35→18:26)
[2021-06-22 04:38] LABS: ALT (SGPT) 14 U/L (8-55); AST (SGOT) 7 U/L (5-34); Albumin 3.3 g/dL (3.5-5.0); Alkaline Phosphatase 56 U/L (40-110); Anion Gap 14 mmol/L (10-20); BUN (Urea Nitrogen) 40 mg/dL (7.0-18.7); Bilirubin, Total 0.5 mg/dL (0.2-1.2); Calc. Creatinine Clearance 130 mL/min (70-130); Carbon Dioxide 19 mmol/L (22-29); Chloride 108 mmol/L (98-107); Globulin 2.9 g/dL (2.4-3.5); Glucose 225 mg/dL (70-105); Phosphorus 3.5 mg/dL (2.3-4.7); Protein, Total 6.2 g/dL (6.0-8.3); Sodium 136 mmol/L (136-145)
[2021-06-22] MEDS: HumaLOG 300 UNITS/3 ML VIAL SC PRN ×3 (04:54→16:07)
[2021-06-22] MEDS: NPH, Human Insulin Isophane 300 UNIT/3 ML VIAL SC SCH ×4 (04:55→21:53)
[2021-06-22 05:02] LABS: Hemoglobin 9.8 g/dL (12.0-16.0); Mean Corpuscular Hemoglobin 23.6 pg (27.0-31.0); Mean Corpuscular Volume 78.7 fL (78.0-98.0); Mean Platelet Volume 9.9 fL (7.4-10.4); Platelet Count 141 thou/uL (130-400); RBC Distribution Width 34.5 % (11.5-14.5); Red Blood Cell (RBC) Count 4.14 mill/uL (4.20-5.40); White Blood Cell (WBC) Count 7.2 thou/uL (4.8-10.8)
[2021-06-22] MEDS: Levothyroxine Sodium 88 MCG TAB PO SCH (05:33)
[2021-06-22] MEDS: Heparin 5,000 UNITS/ML VIAL SC SCH ×3 (05:33→21:53)
[2021-06-22] MEDS ORDERED: Magnesium 2 GM/50 ML 2 GM in Premix Bag 1 BAG IVPB SCH (06:15)
[2021-06-22 06:42] LABS: #Lymphocytes 0.2 thou/uL (1.20-3.40); #Monocytes 0.6 thou/uL (0.11-0.59); #Neutrophils 6.3 thou/uL (1.40-6.50); %Basophils 0.2 % (0.0-1.0); %Eosinophils 0.3 % (0.0-10.0); %Lymphocytes 3.3 % (21.0-51.0); %Monocytes 8.4 % (0.0-10.0); %Neutrophils 87.8 % (42.0-75.0); Anisocytosis MODERATE=16-30 cells (100X) (0-5/hpf); Hypochromia SLIGHT = 6-15 cells (100X) (0-5/hpf); Large Platelets SLIGHT; MDiff Complete? YES; Microcytosis SLIGHT = 6-15 cells (100X) (0-5/hpf)
[2021-06-22 08:33] LABS: Actual Bicarbonate (HCO3a) 19.9 mEq/L (22-28); Base Excess (BEa) -2.9 mEq/L (-2.0 to +3.0); CO2 Tension 28.1 mmHg (35.0-45.0); Calcium, Ionized (arterial) 1.25 mmol/L (1.12-1.30); Carboxyhemoglobin (COHb) 0.9 gm% (0.0-3.0); Potassium - ABG Lab 4.35 mmol/L (3.70-5.30); pH, Arterial 7.47 (7.35-7.45)
[2021-06-22 08:47] LABS: ALV-art Gradient 261.875 mmHg (0-20); O2 Tension (PaO2), arterial 59.5 mmHg (80.0-100.0); Puncture Site RRA
[2021-06-22] MEDS ORDERED: Fentanyl BOLUS 250 ML IVPB PRN (08:51)
[2021-06-22] MEDS: Pantoprazole 40 MG GRANULES PACKET PER TUBE SCH (08:53)
[2021-06-22] MEDS: Senokot S 8.6-50 MG TAB PO SCH ×2 (08:53→20:27)
[2021-06-22] MEDS: Polyethylene Glycol 3350 17 GM Packet PER TUBE SCH (08:53)
[2021-06-22] MEDS: Multivit, Therapeutic 1 TAB PO SCH (08:53)
[2021-06-22] MEDS: Folic Acid 1 MG TAB PO SCH (08:53)
[2021-06-22] MEDS: Dexamethasone 4 mg/ml Vial SLOW IVP SCH ×2 (08:53→20:28)
[2021-06-22] MEDS: Ascorbic Acid 500 mg Chewable Tablet PO SCH (08:53)
[2021-06-22] MEDS: fentaNYL 75 mcg/hour Patch TD SCH (12:18)
[2021-06-22] MEDS ORDERED: Fentanyl CADD 100 ML ONE (12:26)
[2021-06-22] MEDS: Fentanyl CADD 100 ML IV SCH (12:32)
[2021-06-22 15:54] LABS: Albumin 3.3 g/dL (3.5-5.0); Chloride 112 mmol/L (98-107); Sodium 137 mmol/L (136-145)
[2021-06-22 15:55] LABS: ALT (SGPT) 15 U/L (8-55); AST (SGOT) 32 U/L (5-34); Alkaline Phosphatase 62 U/L (40-110); Anion Gap 19 mmol/L (10-20); BUN (Urea Nitrogen) 37 mg/dL (7.0-18.7); Bilirubin, Total 0.5 mg/dL (0.2-1.2); Calc. Creatinine Clearance 123 mL/min (70-130); Calcium 9.4 mg/dL (7.8-10.44); Carbon Dioxide 13 mmol/L (22-29); Globulin 3.8 g/dL (2.4-3.5); Glucose 161 mg/dL (70-105); Protein, Total 7.1 g/dL (6.0-8.3)
[2021-06-22 16:31] LABS: Potassium 4.7 mmol/L (3.5-5.1)
[2021-06-22] MEDS: Cholecalciferol 1,000 UNITS (25 MCG) TAB PO SCH (20:27)
[2021-06-22] MEDS: Zinc Sulfate 220 MG CAP PO SCH (20:27)
[2021-06-22] MEDS: Vancomycin HCl 1.75 GM in Sodium Chloride 0.9% 500 ML IVPB SCH (23:19)
[2021-06-23] MEDS: Propofol 1,000 MG/100 ML VIAL IV PRN ×5 (00:59→23:26)
[2021-06-23] MEDS: HumaLOG 300 UNITS/3 ML VIAL SC PRN ×2 (04:35→15:44)
[2021-06-23] MEDS: NPH, Human Insulin Isophane 300 UNIT/3 ML VIAL SC SCH ×4 (04:36→20:36)
[2021-06-23 05:13] LABS: #Basophils 0.1 thou/uL (0.0-0.2); #Lymphocytes 0.3 thou/uL (1.20-3.40); #Monocytes 0.5 thou/uL (0.11-0.59); #Neutrophils 7.1 thou/uL (1.40-6.50); %Basophils 0.7 % (0.0-1.0); %Eosinophils 0.2 % (0.0-10.0); %Lymphocytes 3.2 % (21.0-51.0); %Monocytes 5.7 % (0.0-10.0); %Neutrophils 90.2 % (42.0-75.0); Hemoglobin 10.4 g/dL (12.0-16.0); Mean Corpuscular HGB CONC 31.1 g/dL (32.0-36.0); Mean Corpuscular Hemoglobin 24.3 pg (27.0-31.0); Mean Corpuscular Volume 78.3 fL (78.0-98.0); Mean Platelet Volume 9.5 fL (7.4-10.4); Platelet Count 150 thou/uL (130-400); RBC Distribution Width 34.7 % (11.5-14.5); Red Blood Cell (RBC) Count 4.28 mill/uL (4.20-5.40); White Blood Cell (WBC) Count 7.9 thou/uL (4.8-10.8)
[2021-06-23] MEDS: Levothyroxine Sodium 88 MCG TAB PO SCH (05:23)
[2021-06-23] MEDS: Heparin 5,000 UNITS/ML VIAL SC SCH ×3 (05:23→20:35)
[2021-06-23 05:25] LABS: ALT (SGPT) 16 U/L (8-55); AST (SGOT) 11 U/L (5-34); Albumin 3.5 g/dL (3.5-5.0); Alkaline Phosphatase 58 U/L (40-110); Anion Gap 17 mmol/L (10-20); BUN (Urea Nitrogen) 40 mg/dL (7.0-18.7); Bilirubin, Total 0.6 mg/dL (0.2-1.2); Calc. Creatinine Clearance 120 mL/min (70-130); Calcium 9.2 mg/dL (7.8-10.44); Carbon Dioxide 18 mmol/L (22-29); Chloride 108 mmol/L (98-107); Glucose 172 mg/dL (70-105); Phosphorus 3.5 mg/dL (2.3-4.7); Potassium 4.8 mmol/L (3.5-5.1); Protein, Total 6.5 g/dL (6.0-8.3); Sodium 138 mmol/L (136-145)
[2021-06-23] MEDS ORDERED: Magnesium 2 GM/50 ML 2 GM in Premix Bag 1 BAG IVPB SCH (06:30)
[2021-06-23] MEDS: Senokot S 8.6-50 MG TAB PO SCH ×2 (08:51→20:36)
[2021-06-23] MEDS: Polyethylene Glycol 3350 17 GM Packet PER TUBE SCH (08:51)
[2021-06-23] MEDS: Ascorbic Acid 500 mg Chewable Tablet PO SCH (08:51)
[2021-06-23] MEDS: Folic Acid 1 MG TAB PO SCH (08:52)
[2021-06-23] MEDS: Multivit, Therapeutic 1 TAB PO SCH (08:52)
[2021-06-23] MEDS: Dexamethasone 4 mg/ml Vial SLOW IVP SCH ×2 (08:52→20:35)
[2021-06-23] MEDS: Pantoprazole 40 MG GRANULES PACKET PER TUBE SCH (08:52)
[2021-06-23] MEDS ORDERED: Fentanyl CADD 100 ML ONE (11:44)
[2021-06-23] MEDS: Fentanyl CADD 100 ML IV SCH (11:48)
[2021-06-23] MEDS: Cholecalciferol 1,000 UNITS (25 MCG) TAB PO SCH (20:36)
[2021-06-23] MEDS: Zinc Sulfate 220 MG CAP PO SCH (21:19)
[2021-06-23] MEDS: hydrALAZINE 20 MG/ML VIAL SLOW IVP PRN (23:25)
[2021-06-23 23:41] LABS: Vancomycin, Trough 14.9 ug/mL
[2021-06-24] MEDS: Vancomycin HCl 1.75 GM in Sodium Chloride 0.9% 500 ML IVPB SCH ×2 (01:01→23:00)
[2021-06-24] MEDS: Scopolamine 1.5 mg/72 hour Patch TOP SCH (01:42)
[2021-06-24] MEDS: Propofol 1,000 MG/100 ML VIAL IV PRN ×3 (03:58→19:33)
[2021-06-24 04:24] LABS: ALT (SGPT) 20 U/L (8-55); AST (SGOT) 9 U/L (5-34); Albumin 3.3 g/dL (3.5-5.0); Alkaline Phosphatase 56 U/L (40-110); Anion Gap 14 mmol/L (10-20); BUN (Urea Nitrogen) 38 mg/dL (7.0-18.7); Bilirubin, Total 0.6 mg/dL (0.2-1.2); Calc. Creatinine Clearance 135 mL/min (70-130); Calcium 8.9 mg/dL (7.8-10.44); Carbon Dioxide 19 mmol/L (22-29); Chloride 107 mmol/L (98-107); Globulin 2.8 g/dL (2.4-3.5); Glucose 181 mg/dL (70-105); Phosphorus 3.7 mg/dL (2.3-4.7); Potassium 4.2 mmol/L (3.5-5.1); Protein, Total 6.1 g/dL (6.0-8.3); Sodium 136 mmol/L (136-145)
[2021-06-24 04:37] LABS: #Lymphocytes 0.3 thou/uL (1.20-3.40); #Monocytes 0.4 thou/uL (0.11-0.59); #Neutrophils 7.1 thou/uL (1.40-6.50); %Basophils 0.1 % (0.0-1.0); %Eosinophils 0.3 % (0.0-10.0); %Lymphocytes 3.9 % (21.0-51.0); %Monocytes 4.6 % (0.0-10.0); %Neutrophils 91.1 % (42.0-75.0); Hemoglobin 9.8 g/dL (12.0-16.0); Mean Corpuscular HGB CONC 30.6 g/dL (32.0-36.0); Mean Corpuscular Hemoglobin 24.1 pg (27.0-31.0); Mean Corpuscular Volume 78.8 fL (78.0-98.0); Mean Platelet Volume 11.5 fL (7.4-10.4); Platelet Count 158 thou/uL (130-400); RBC Distribution Width 34.6 % (11.5-14.5); Red Blood Cell (RBC) Count 4.06 mill/uL (4.20-5.40); White Blood Cell (WBC) Count 7.8 thou/uL (4.8-10.8)
[2021-06-24] MEDS: HumaLOG 300 UNITS/3 ML VIAL SC PRN (04:43)
[2021-06-24] MEDS: NPH, Human Insulin Isophane 300 UNIT/3 ML VIAL SC SCH ×4 (04:43→20:59)
[2021-06-24] MEDS: Levothyroxine Sodium 88 MCG TAB PO SCH (06:02)
[2021-06-24] MEDS: Heparin 5,000 UNITS/ML VIAL SC SCH ×3 (06:02→21:00)
[2021-06-24] MEDS ORDERED: Magnesium 2 GM/50 ML 2 GM in Premix Bag 1 BAG IVPB SCH (06:30)
[2021-06-24 08:25] LABS: Actual Bicarbonate (HCO3a) 17.7 mEq/L (22-28); Base Excess (BEa) -2.9 mEq/L (-2.0 to +3.0); Calcium, Ionized (arterial) 1.17 mmol/L (1.12-1.30); Carboxyhemoglobin (COHb) 0.6 gm% (0.0-3.0); Hemoglobin (Hb) 10.6 g/dL (12.0-16.0); Potassium - ABG Lab 3.92 mmol/L (3.70-5.30)
[2021-06-24 08:26] LABS: CO2 Tension 20.1 mmHg (35.0-45.0); O2 Tension (PaO2), arterial 57.9 mmHg (80.0-100.0); pH, Arterial 7.56 (7.35-7.45)
[2021-06-24 08:27] LABS: ALV-art Gradient 273.475 mmHg (0-20); Puncture Site RRA
[2021-06-24] MEDS: Ascorbic Acid 500 mg Chewable Tablet PO SCH (09:18)
[2021-06-24] MEDS: Multivit, Therapeutic 1 TAB PO SCH (09:18)
[2021-06-24] MEDS: Folic Acid 1 MG TAB PO SCH (09:18)
[2021-06-24] MEDS: Dexamethasone 4 mg/ml Vial SLOW IVP SCH ×2 (09:19→20:32)
[2021-06-24] MEDS: Pantoprazole 40 MG GRANULES PACKET PER TUBE SCH (09:20)
[2021-06-24] MEDS: Senokot S 8.6-50 MG TAB PO SCH ×2 (09:23→20:59)
[2021-06-24] MEDS: Polyethylene Glycol 3350 17 GM Packet PER TUBE SCH (09:23)
[2021-06-24] MEDS ORDERED: Fentanyl CADD 100 ML ONE (15:52)
[2021-06-24] MEDS: Lorazepam 2 MG/ML VIAL SLOW IVP PRN (20:22)
[2021-06-24] MEDS: Cholecalciferol 1,000 UNITS (25 MCG) TAB PO SCH (20:33)
[2021-06-24] MEDS: Zinc Sulfate 220 MG CAP PO SCH (20:33)
[2021-06-25] MEDS: NPH, Human Insulin Isophane 300 UNIT/3 ML VIAL SC SCH ×4 (04:00→22:00)
[2021-06-25] MEDS: Heparin 5,000 UNITS/ML VIAL SC SCH ×3 (06:00→23:09)
[2021-06-25] MEDS: Levothyroxine Sodium 88 MCG TAB PO SCH (06:00)
[2021-06-25 09:12] LABS: Actual Bicarbonate (HCO3a) 21.5 mEq/L (22-28); Base Excess (BEa) -5.7 mEq/L (-2.0 to +3.0); CO2 Tension 49.5 mmHg (35.0-45.0); Calcium, Ionized (arterial) 1.26 mmol/L (1.12-1.30); Hemoglobin (Hb) 10.7 g/dL (12.0-16.0); O2 Tension (PaO2), arterial 66.2 mmHg (80.0-100.0); Potassium - ABG Lab 5.13 mmol/L (3.70-5.30); pH, Arterial 7.26 (7.35-7.45)
[2021-06-25 09:25] LABS: Puncture Site RRA
[2021-06-25 09:26] LABS: ALV-art Gradient 157.125 mmHg (0-20)
[2021-06-25] MEDS: Multivit, Therapeutic 1 TAB PO SCH (09:41)
[2021-06-25] MEDS: Folic Acid 1 MG TAB PO SCH (09:41)
[2021-06-25] MEDS: Dexamethasone 4 mg/ml Vial SLOW IVP SCH (09:41)
[2021-06-25] MEDS: Ascorbic Acid 500 mg Chewable Tablet PO SCH (09:42)
[2021-06-25] MEDS: Polyethylene Glycol 3350 17 GM Packet PER TUBE SCH (09:42)
[2021-06-25] MEDS: Pantoprazole 40 MG GRANULES PACKET PER TUBE SCH (09:42)
[2021-06-25] MEDS: Senokot S 8.6-50 MG TAB PO SCH ×2 (09:43→20:04)
[2021-06-25] MEDS: Lorazepam 2 MG/ML VIAL SLOW IVP PRN ×2 (11:07→18:00)
[2021-06-25 11:16] LABS: ALT (SGPT) 19 U/L (8-55); AST (SGOT) 8 U/L (5-34); Albumin 3.5 g/dL (3.5-5.0); Alkaline Phosphatase 55 U/L (40-110); Anion Gap 14 mmol/L (10-20); BUN (Urea Nitrogen) 41 mg/dL (7.0-18.7); Bilirubin, Total 0.4 mg/dL (0.2-1.2); Calc. Creatinine Clearance 113 mL/min (70-130); Carbon Dioxide 21 mmol/L (22-29); Chloride 109 mmol/L (98-107); Potassium 5.6 mmol/L (3.5-5.1); Protein, Total 6.5 g/dL (6.0-8.3); Sodium 138 mmol/L (136-145)
[2021-06-25 12:30] LABS: Glucose 183 mg/dL (70-105)
[2021-06-25] MEDS: fentaNYL 75 mcg/hour Patch TD SCH (12:42)
[2021-06-25 12:58] LABS: Hemoglobin 10.1 g/dL (12.0-16.0); Mean Corpuscular Volume 82.7 fL (78.0-98.0); RBC Distribution Width 33.7 % (11.5-14.5); Red Blood Cell (RBC) Count 4.21 mill/uL (4.20-5.40); White Blood Cell (WBC) Count 9.3 thou/uL (4.8-10.8)
[2021-06-25 12:59] LABS: Band 30 % (5-11); Hypochromia SLIGHT = 6-15 cells (100X) (0-5/hpf); Lymphocytes 3 % (21-51); MDiff Complete? YES; Manual Diff?? YES; Mean Platelet Volume 8.1 fL (7.4-10.4); Monocytes 7 % (0-10); Neutrophil 60 % (42-75); Platelet Count 146 thou/uL (130-400)
[2021-06-25 13:00] LABS: Platelet Morphology Comment Appears Adequate
[2021-06-25] MEDS ORDERED: Fentanyl CADD 100 ML ONE (13:03)
[2021-06-25] MEDS: Fentanyl CADD 100 ML IV SCH (13:10)
[2021-06-25 13:36] LABS: Phosphorus 6.3 mg/dL (2.3-4.7)
[2021-06-25] MEDS: HumaLOG 300 UNITS/3 ML VIAL SC PRN (16:40)
[2021-06-25] MEDS: Cholecalciferol 1,000 UNITS (25 MCG) TAB PO SCH (20:04)
[2021-06-25] MEDS: Zinc Sulfate 220 MG CAP PO SCH (20:04)
[2021-06-25] MEDS: Vancomycin HCl 1.75 GM in Sodium Chloride 0.9% 500 ML IVPB SCH (23:21)
[2021-06-26] MEDS: NPH, Human Insulin Isophane 300 UNIT/3 ML VIAL SC SCH ×4 (04:01→21:41)
[2021-06-26 04:57] LABS: ALT (SGPT) 29 U/L (8-55); AST (SGOT) 22 U/L (5-34); Albumin 3.6 g/dL (3.5-5.0); Alkaline Phosphatase 63 U/L (40-110); Anion Gap 11 mmol/L (10-20); BUN (Urea Nitrogen) 41 mg/dL (7.0-18.7); Bilirubin, Total 0.5 mg/dL (0.2-1.2); Calc. Creatinine Clearance 115 mL/min (70-130); Carbon Dioxide 24 mmol/L (22-29); Chloride 109 mmol/L (98-107); Globulin 2.9 g/dL (2.4-3.5); Glucose 151 mg/dL (70-105); Magnesium 2.1 mg/dL (1.6-2.6); Phosphorus 5.6 mg/dL (2.3-4.7); Potassium 5.1 mmol/L (3.5-5.1); Protein, Total 6.5 g/dL (6.0-8.3); Sodium 139 mmol/L (136-145)
[2021-06-26] MEDS: Levothyroxine Sodium 88 MCG TAB PO SCH (06:22)
[2021-06-26] MEDS: Acetaminophen 650 MG Suppository PR PRN (06:23)
[2021-06-26] MEDS: Heparin 5,000 UNITS/ML VIAL SC SCH ×3 (06:23→21:41)
[2021-06-26 06:28] LABS: #Eosinphils 0.4 thou/uL (0.0-0.7); #Lymphocytes 0.7 thou/uL (1.20-3.40); #Monocytes 0.7 thou/uL (0.11-0.59); #Neutrophils 10.4 thou/uL (1.40-6.50); %Basophils 0.1 % (0.0-1.0); %Eosinophils 3.4 % (0.0-10.0); %Lymphocytes 5.6 % (21.0-51.0); %Neutrophils 84.9 % (42.0-75.0); Hemoglobin 10.4 g/dL (12.0-16.0); Mean Corpuscular HGB CONC 29.3 g/dL (32.0-36.0); Mean Corpuscular Hemoglobin 24.6 pg (27.0-31.0); Mean Corpuscular Volume 84.2 fL (78.0-98.0); Mean Platelet Volume 8.7 fL (7.4-10.4); Platelet Count 135 thou/uL (130-400); Red Blood Cell (RBC) Count 4.22 mill/uL (4.20-5.40); White Blood Cell (WBC) Count 12.2 thou/uL (4.8-10.8)
[2021-06-26] MEDS ORDERED: Magnesium 2 GM/50 ML 2 GM in Premix Bag 1 BAG IVPB SCH (06:30)
[2021-06-26] MEDS ORDERED: Fentanyl CADD 100 ML ONE (07:47)
[2021-06-26] MEDS: Fentanyl CADD 100 ML IV SCH (07:52)
[2021-06-26 08:11] LABS: Actual Bicarbonate (HCO3a) 23.2 mEq/L (22-28); Base Excess (BEa) -6.2 mEq/L (-2.0 to +3.0); Calcium, Ionized (arterial) 1.28 mmol/L (1.12-1.30); Carboxyhemoglobin (COHb) 1.2 gm% (0.0-3.0); Hemoglobin (Hb) 10.6 g/dL (12.0-16.0); Potassium - ABG Lab 4.83 mmol/L (3.70-5.30)
[2021-06-26 08:25] LABS: CO2 Tension 67.9 mmHg (35.0-45.0); O2 Tension (PaO2), arterial 59.8 mmHg (80.0-100.0); pH, Arterial 7.15 (7.35-7.45)
[2021-06-26 08:26] LABS: Puncture Site LRA
[2021-06-26 08:27] LABS: ALV-art Gradient 211.825 mmHg (0-20)
[2021-06-26] MEDS: Multivit, Therapeutic 1 TAB PO SCH (08:37)
[2021-06-26] MEDS: Folic Acid 1 MG TAB PO SCH (08:37)
[2021-06-26] MEDS: Ascorbic Acid 500 mg Chewable Tablet PO SCH (08:37)
[2021-06-26] MEDS: Pantoprazole 40 MG GRANULES PACKET PER TUBE SCH (08:37)
[2021-06-26] MEDS: Dexamethasone 4 mg/ml Vial SLOW IVP SCH (08:37)
[2021-06-26] MEDS: Senokot S 8.6-50 MG TAB PO SCH ×2 (09:14→21:41)
[2021-06-26] MEDS: Polyethylene Glycol 3350 17 GM Packet PER TUBE SCH (09:14)
[2021-06-26] MEDS: Lorazepam 2 MG/ML VIAL SLOW IVP PRN (11:24)
[2021-06-26] MEDS: Propofol 1,000 MG/100 ML VIAL IV PRN (11:24)
[2021-06-26] MEDS: Cholecalciferol 1,000 UNITS (25 MCG) TAB PO SCH (21:41)
[2021-06-26] MEDS: Zinc Sulfate 220 MG CAP PO SCH (21:41)
[2021-06-26 22:28] LABS: Vancomycin, Trough 16.1 ug/mL
[2021-06-27] MEDS: Vancomycin HCl 1.75 GM in Sodium Chloride 0.9% 500 ML IVPB SCH (01:11)
[2021-06-27] MEDS: Scopolamine 1.5 mg/72 hour Patch TOP SCH (02:00)
[2021-06-27] MEDS: Dextrose 50% Abboject 50 ML SYRINGE SLOW IVP PRN ×2 (04:30→08:22)
[2021-06-27] MEDS: NPH, Human Insulin Isophane 300 UNIT/3 ML VIAL SC SCH ×2 (04:35→09:15)
[2021-06-27 04:48] LABS: #Neutrophils 5.7 thou/uL (1.40-6.50); %Basophils 0.6 % (0.0-1.0); %Eosinophils 6.5 % (0.0-10.0); %Lymphocytes 7.6 % (21.0-51.0); %Monocytes 5.5 % (0.0-10.0); %Neutrophils 79.7 % (42.0-75.0); Hemoglobin 9.1 g/dL (12.0-16.0); Mean Corpuscular HGB CONC 29.2 g/dL (32.0-36.0); Mean Corpuscular Hemoglobin 24.3 pg (27.0-31.0); Mean Corpuscular Volume 83.1 fL (78.0-98.0); Mean Platelet Volume 7.8 fL (7.4-10.4); Platelet Count 119 thou/uL (130-400); RBC Distribution Width 32.7 % (11.5-14.5); Red Blood Cell (RBC) Count 3.75 mill/uL (4.20-5.40); White Blood Cell (WBC) Count 7.1 thou/uL (4.8-10.8)
[2021-06-27 04:49] LABS: #Eosinphils 0.5 thou/uL (0.0-0.7); #Lymphocytes 0.5 thou/uL (1.20-3.40); #Monocytes 0.4 thou/uL (0.11-0.59); Hypochromia SLIGHT = 6-15 cells (100X) (0-5/hpf); MDiff Complete? YES; Platelet Morphology Comment Appears Adequate; Polychromasia SLIGHT = 2-3 cells (100X) (0-2/hpf)
[2021-06-27] MEDS: Levothyroxine Sodium 88 MCG TAB PO SCH (05:28)
[2021-06-27] MEDS: Heparin 5,000 UNITS/ML VIAL SC SCH ×3 (05:28→21:37)
[2021-06-27 06:11] LABS: ALT (SGPT) 47 U/L (8-55); AST (SGOT) 19 U/L (5-34); Albumin 3.2 g/dL (3.5-5.0); Alkaline Phosphatase 64 U/L (40-110); Anion Gap 10 mmol/L (10-20); BUN (Urea Nitrogen) 36 mg/dL (7.0-18.7); Bilirubin, Total 0.5 mg/dL (0.2-1.2); Calc. Creatinine Clearance 133 mL/min (70-130); Carbon Dioxide 26 mmol/L (22-29); Chloride 109 mmol/L (98-107); Globulin 2.7 g/dL (2.4-3.5); Glucose 84 mg/dL (70-105); Magnesium 2.1 mg/dL (1.6-2.6); Phosphorus 3.9 mg/dL (2.3-4.7); Potassium 4.7 mmol/L (3.5-5.1); Protein, Total 5.9 g/dL (6.0-8.3); Sodium 140 mmol/L (136-145)
[2021-06-27 07:35] LABS: Actual Bicarbonate (HCO3a) 24.6 mEq/L (22-28); Base Excess (BEa) -0.8 mEq/L (-2.0 to +3.0); CO2 Tension 44.3 mmHg (35.0-45.0); Calcium, Ionized (arterial) 1.27 mmol/L (1.12-1.30); Carboxyhemoglobin (COHb) 1.3 gm% (0.0-3.0); Hemoglobin (Hb) 9.6 g/dL (12.0-16.0); O2 Tension (PaO2), arterial 63.2 mmHg (80.0-100.0); Potassium - ABG Lab 4.37 mmol/L (3.70-5.30); pH, Arterial 7.36 (7.35-7.45)
[2021-06-27 07:36] LABS: ALV-art Gradient 166.625 mmHg (0-20); Puncture Site RRA
[2021-06-27] MEDS: Dexamethasone 4 mg/ml Vial SLOW IVP SCH (08:22)
[2021-06-27] MEDS: Folic Acid 1 MG TAB PO SCH (09:13)
[2021-06-27] MEDS: Multivit, Therapeutic 1 TAB PO SCH (09:13)
[2021-06-27] MEDS: Ascorbic Acid 500 mg Chewable Tablet PO SCH (09:13)
[2021-06-27] MEDS: Pantoprazole 40 MG GRANULES PACKET PER TUBE SCH (09:13)
[2021-06-27] MEDS: Propofol 1,000 MG/100 ML VIAL IV PRN ×4 (09:14→16:51)
[2021-06-27] MEDS: Polyethylene Glycol 3350 17 GM Packet PER TUBE SCH (09:14)
[2021-06-27] MEDS: Senokot S 8.6-50 MG TAB PO SCH ×2 (09:14→21:37)
[2021-06-27] MEDS: Fentanyl CADD 100 ML IV SCH (12:59)
[2021-06-27] MEDS: HumaLOG 300 UNITS/3 ML VIAL SC PRN (17:29)
[2021-06-27] MEDS: Cholecalciferol 1,000 UNITS (25 MCG) TAB PO SCH (21:36)
[2021-06-27] MEDS: Zinc Sulfate 220 MG CAP PO SCH (21:37)
[2021-06-28] MEDS: Vancomycin HCl 1.75 GM in Sodium Chloride 0.9% 500 ML IVPB SCH (00:21)
[2021-06-28 04:22] LABS: ALT (SGPT) 34 U/L (8-55); AST (SGOT) 11 U/L (5-34); Albumin 3.1 g/dL (3.5-5.0); Alkaline Phosphatase 63 U/L (40-110); Anion Gap 12 mmol/L (10-20); BUN (Urea Nitrogen) 35 mg/dL (7.0-18.7); Bilirubin, Total 0.4 mg/dL (0.2-1.2); Calc. Creatinine Clearance 63 mL/min (70-130); Calcium 8.9 mg/dL (7.8-10.44); Carbon Dioxide 25 mmol/L (22-29); Chloride 108 mmol/L (98-107); Globulin 2.6 g/dL (2.4-3.5); Glucose 137 mg/dL (70-105); Phosphorus 4.2 mg/dL (2.3-4.7); Protein, Total 5.7 g/dL (6.0-8.3); Sodium 140 mmol/L (136-145)
[2021-06-28 04:36] LABS: Anisocytosis MODERATE=16-30 cells (100X) (0-5/hpf); Band 8 % (5-11); Eosinophils 2 % (0-10); Hemoglobin 8.5 g/dL (12.0-16.0); Hypochromia SLIGHT = 6-15 cells (100X) (0-5/hpf); Lymphocytes 6 % (21-51); MDiff Complete? YES; Mean Corpuscular HGB CONC 29.1 g/dL (32.0-36.0); Mean Corpuscular Hemoglobin 24.2 pg (27.0-31.0); Mean Platelet Volume 7.3 fL (7.4-10.4); Monocytes 7 % (0-10); Neutrophil 76 % (42-75); Platelet Count 121 thou/uL (130-400); Platelet Morphology Comment Appears Decreased; Polychromasia SLIGHT = 2-3 cells (100X) (0-2/hpf); RBC Distribution Width 32.4 % (11.5-14.5); Red Blood Cell (RBC) Count 3.53 mill/uL (4.20-5.40); Toxic Granulation SLIGHT; White Blood Cell (WBC) Count 7.6 thou/uL (4.8-10.8)
[2021-06-28] MEDS ORDERED: EPINEPHrine 1 MG/10 ML Abboject SYRINGE ONE (06:08)
[2021-06-28] MEDS ORDERED: Sodium Bicarb 50 MEQ/50 ML Abboject 8.4% SYRINGE ONE (06:08)
[2021-06-28] MEDS ORDERED: Magnesium 2 GM/50 ML 2 GM in Premix Bag 1 BAG IVPB SCH (06:15)
[2021-06-28 07:06] LABS: Actual Bicarbonate (HCO3a) 26.5 mEq/L (22-28); Base Excess (BEa) 0.5 mEq/L (-2.0 to +3.0); CO2 Tension 49.3 mmHg (35.0-45.0); Calcium, Ionized (arterial) 1.26 mmol/L (1.12-1.30); Carboxyhemoglobin (COHb) 0.7 gm% (0.0-3.0); Hemoglobin (Hb) 10.2 g/dL (12.0-16.0); O2 Tension (PaO2), arterial 60.4 mmHg (80.0-100.0); pH, Arterial 7.35 (7.35-7.45)
[2021-06-28 07:07] LABS: ALV-art Gradient 590.975 mmHg (0-20); Puncture Site RRA
[2021-06-28] MEDS: Heparin 5,000 UNITS/ML VIAL SC SCH ×3 (07:16→21:07)
[2021-06-28] MEDS: Levothyroxine Sodium 88 MCG TAB PO SCH (07:16)
[2021-06-28] MEDS: Dexamethasone 4 mg/ml Vial SLOW IVP SCH (08:41)
[2021-06-28] MEDS: Lorazepam 2 MG/ML VIAL SLOW IVP PRN (08:41)
[2021-06-28] MEDS: Propofol 1,000 MG/100 ML VIAL IV PRN ×2 (08:42→14:44)
[2021-06-28] MEDS: Ascorbic Acid 500 mg Chewable Tablet PO SCH (08:42)
[2021-06-28] MEDS: Senokot S 8.6-50 MG TAB PO SCH ×2 (08:43→23:45)
[2021-06-28] MEDS: Pantoprazole 40 MG GRANULES PACKET PER TUBE SCH (08:43)
[2021-06-28] MEDS: Folic Acid 1 MG TAB PO SCH (08:43)
[2021-06-28] MEDS: Polyethylene Glycol 3350 17 GM Packet PER TUBE SCH (08:43)
[2021-06-28] MEDS: Multivit, Therapeutic 1 TAB PO SCH (08:43)
[2021-06-28] MEDS: fentaNYL 75 mcg/hour Patch TD SCH (16:27)
[2021-06-28] MEDS: HumaLOG 300 UNITS/3 ML VIAL SC PRN (16:58)
[2021-06-28] MEDS: Cholecalciferol 1,000 UNITS (25 MCG) TAB PO SCH (20:50)
[2021-06-28] MEDS: Zinc Sulfate 220 MG CAP PO SCH (20:50)
[2021-06-28] MEDS ORDERED: Vancomycin HCl 1.75 GM in Sodium Chloride 0.9% 500 ML IVPB SCH (23:00)
[2021-06-29] MEDS: Fentanyl CADD 100 ML IV SCH (03:30)
[2021-06-29 04:26] LABS: #Eosinphils 0.4 thou/uL (0.0-0.7); #Lymphocytes 0.8 thou/uL (1.20-3.40); #Monocytes 0.4 thou/uL (0.11-0.59); #Neutrophils 8.8 thou/uL (1.40-6.50); %Basophils 0.3 % (0.0-1.0); %Eosinophils 4.3 % (0.0-10.0); %Lymphocytes 7.3 % (21.0-51.0); %Neutrophils 84.1 % (42.0-75.0); Hemoglobin 8.9 g/dL (12.0-16.0); Mean Corpuscular HGB CONC 29.3 g/dL (32.0-36.0); Mean Corpuscular Hemoglobin 24.5 pg (27.0-31.0); Mean Corpuscular Volume 83.7 fL (78.0-98.0); Mean Platelet Volume 7.8 fL (7.4-10.4); Platelet Count 116 thou/uL (130-400); RBC Distribution Width 32.2 % (11.5-14.5); Red Blood Cell (RBC) Count 3.63 mill/uL (4.20-5.40); White Blood Cell (WBC) Count 10.5 thou/uL (4.8-10.8)
[2021-06-29 04:44] LABS: ALT (SGPT) 39 U/L (8-55); AST (SGOT) 9 U/L (5-34); Alkaline Phosphatase 74 U/L (40-110); Anion Gap 10 mmol/L (10-20); BUN (Urea Nitrogen) 33 mg/dL (7.0-18.7); Bilirubin, Total 0.4 mg/dL (0.2-1.2); Calc. Creatinine Clearance 124 mL/min (70-130); Calcium 8.8 mg/dL (7.8-10.44); Carbon Dioxide 28 mmol/L (22-29); Chloride 106 mmol/L (98-107); Globulin 2.8 g/dL (2.4-3.5); Glucose 122 mg/dL (70-105); Magnesium 2.1 mg/dL (1.6-2.6); Potassium 4.9 mmol/L (3.5-5.1); Protein, Total 5.8 g/dL (6.0-8.3); Sodium 139 mmol/L (136-145)
[2021-06-29] MEDS: Heparin 5,000 UNITS/ML VIAL SC SCH ×3 (05:55→22:01)
[2021-06-29] MEDS: Levothyroxine Sodium 88 MCG TAB PO SCH (05:55)
[2021-06-29] MEDS: Pantoprazole 40 MG GRANULES PACKET PER TUBE SCH (08:14)
[2021-06-29] MEDS: Folic Acid 1 MG TAB PO SCH (08:14)
[2021-06-29] MEDS: Multivit, Therapeutic 1 TAB PO SCH (08:15)
[2021-06-29] MEDS: Ascorbic Acid 500 mg Chewable Tablet PO SCH (08:15)
[2021-06-29] MEDS: Dexamethasone 4 mg/ml Vial SLOW IVP SCH (08:21)
[2021-06-29] MEDS: Polyethylene Glycol 3350 17 GM Packet PER TUBE SCH (08:22)
[2021-06-29] MEDS: Senokot S 8.6-50 MG TAB PO SCH ×2 (08:22→19:41)
[2021-06-29 08:39] LABS: Actual Bicarbonate (HCO3a) 27.1 mEq/L (22-28); CO2 Tension 50.7 mmHg (35.0-45.0); Calcium, Ionized (arterial) 1.28 mmol/L (1.12-1.30); Carboxyhemoglobin (COHb) 0.7 gm% (0.0-3.0); Hemoglobin (Hb) 9.9 g/dL (12.0-16.0); O2 Tension (PaO2), arterial 72.1 mmHg (80.0-100.0); Potassium - ABG Lab 4.41 mmol/L (3.70-5.30); pH, Arterial 7.35 (7.35-7.45)
[2021-06-29 08:40] LABS: Puncture Site RRA
[2021-06-29 08:41] LABS: ALV-art Gradient 221.025 mmHg (0-20)
[2021-06-29] MEDS ORDERED: Piperacillin/Tazobactam 3.375 GM in Sodium Chloride 0.9% 100 ML IVPB SCH ×2 (09:30→09:45)
[2021-06-29] MEDS: Lorazepam 2 MG/ML VIAL SLOW IVP PRN ×2 (10:25→15:18)
[2021-06-29] MEDS: Propofol 1,000 MG/100 ML VIAL IV PRN ×3 (10:25→22:02)
[2021-06-29] MEDS: HumaLOG 300 UNITS/3 ML VIAL SC PRN ×2 (13:18→17:19)
[2021-06-29] MEDS: Piperacillin/Tazobactam 3.375 GM in Sodium Chloride 0.9% 100 ML IVPB SCH (17:03)
[2021-06-29] MEDS: Zinc Sulfate 220 MG CAP PO SCH (19:43)
[2021-06-29] MEDS: Cholecalciferol 1,000 UNITS (25 MCG) TAB PO SCH (19:43)
[2021-06-30] MEDS: Propofol 1,000 MG/100 ML VIAL IV PRN ×5 (01:29→23:19)
[2021-06-30] MEDS: Scopolamine 1.5 mg/72 hour Patch TOP SCH (01:54)
[2021-06-30] MEDS: Piperacillin/Tazobactam 3.375 GM in Sodium Chloride 0.9% 100 ML IVPB SCH ×3 (02:10→17:48)
[2021-06-30] MEDS: Heparin 5,000 UNITS/ML VIAL SC SCH (06:24)
[2021-06-30] MEDS: Levothyroxine Sodium 88 MCG TAB PO SCH (06:28)
[2021-06-30] MEDS: Fentanyl CADD 100 ML IV SCH (06:36)
[2021-06-30 07:35] LABS: Actual Bicarbonate (HCO3a) 26.7 mEq/L (22-28); Base Excess (BEa) -1.1 mEq/L (-2.0 to +3.0); Calcium, Ionized (arterial) 1.28 mmol/L (1.12-1.30); Carboxyhemoglobin (COHb) 0.7 gm% (0.0-3.0); Hemoglobin (Hb) 9.6 g/dL (12.0-16.0); O2 Tension (PaO2), arterial 73.6 mmHg (80.0-100.0); Potassium - ABG Lab 4.64 mmol/L (3.70-5.30)
[2021-06-30 07:40] LABS: pH, Arterial 7.25 (7.35-7.45)
[2021-06-30 07:41] LABS: CO2 Tension 61.9 mmHg (35.0-45.0); Puncture Site RRA
[2021-06-30 07:42] LABS: ALV-art Gradient 134.225 mmHg (0-20)
[2021-06-30] MEDS: Ascorbic Acid 500 mg Chewable Tablet PO SCH (08:50)
[2021-06-30] MEDS: Folic Acid 1 MG TAB PO SCH (08:50)
[2021-06-30] MEDS: Pantoprazole 40 MG GRANULES PACKET PER TUBE SCH (08:50)
[2021-06-30] MEDS: Multivit, Therapeutic 1 TAB PO SCH (08:51)
[2021-06-30] MEDS: Lorazepam 2 MG/ML VIAL SLOW IVP PRN ×4 (08:51→22:13)
[2021-06-30 08:52] LABS: Hemoglobin 8.7 g/dL (12.0-16.0); Mean Corpuscular HGB CONC 28.6 g/dL (32.0-36.0); Mean Platelet Volume 6.8 fL (7.4-10.4); Platelet Count 121 thou/uL (130-400); RBC Distribution Width 31.5 % (11.5-14.5); Red Blood Cell (RBC) Count 3.63 mill/uL (4.20-5.40); White Blood Cell (WBC) Count 8.7 thou/uL (4.8-10.8)
[2021-06-30 08:53] LABS: #Basophils 0.1 thou/uL (0.0-0.2); #Eosinphils 0.4 thou/uL (0.0-0.7); #Lymphocytes 0.8 thou/uL (1.20-3.40); #Monocytes 0.4 thou/uL (0.11-0.59); %Basophils 0.6 % (0.0-1.0); %Eosinophils 4.8 % (0.0-10.0); %Lymphocytes 9.2 % (21.0-51.0); %Neutrophils 80.5 % (42.0-75.0); ALT (SGPT) 30 U/L (8-55); AST (SGOT) 8 U/L (5-34); Alkaline Phosphatase 67 U/L (40-110); Anion Gap 9 mmol/L (10-20); BUN (Urea Nitrogen) 33 mg/dL (7.0-18.7); Bilirubin, Total 0.4 mg/dL (0.2-1.2); Calc. Creatinine Clearance 121 mL/min (70-130); Calcium 9.1 mg/dL (7.8-10.44); Carbon Dioxide 27 mmol/L (22-29); Chloride 107 mmol/L (98-107); Globulin 2.8 g/dL (2.4-3.5); Glucose 127 mg/dL (70-105); Magnesium 1.9 mg/dL (1.6-2.6); Phosphorus 4.5 mg/dL (2.3-4.7); Potassium 4.8 mmol/L (3.5-5.1); Protein, Total 5.8 g/dL (6.0-8.3); Sodium 138 mmol/L (136-145)
[2021-06-30] MEDS: Polyethylene Glycol 3350 17 GM Packet PER TUBE SCH (09:17)
[2021-06-30] MEDS: Dexamethasone 4 mg/ml Vial SLOW IVP SCH (09:17)
[2021-06-30] MEDS: Senokot S 8.6-50 MG TAB PO SCH ×2 (09:17→20:42)
[2021-06-30] MEDS ORDERED: Magnesium 2 GM/50 ML 2 GM in Premix Bag 1 BAG IVPB SCH (09:30)
[2021-06-30 10:14] LABS: Band 21 % (5-11); Eosinophils 2 % (0-10); Hypochromia SLIGHT = 6-15 cells (100X) (0-5/hpf); Lymphocytes 10 % (21-51); MDiff Complete? YES; Monocytes 9 % (0-10); Neutrophil 58 % (42-75); Platelet Morphology Comment Appears Decreased; Polychromasia SLIGHT = 2-3 cells (100X) (0-2/hpf)
[2021-06-30] MEDS: Cholecalciferol 1,000 UNITS (25 MCG) TAB PO SCH (20:42)
[2021-06-30] MEDS: Zinc Sulfate 220 MG CAP PO SCH (20:42)
[2021-07-01] MEDS: Piperacillin/Tazobactam 3.375 GM in Sodium Chloride 0.9% 100 ML IVPB SCH ×3 (03:33→17:45)
[2021-07-01] MEDS: Lorazepam 2 MG/ML VIAL SLOW IVP PRN ×3 (04:03→13:46)
[2021-07-01 04:58] LABS: ALT (SGPT) 30 U/L (8-55); AST (SGOT) 18 U/L (5-34); Albumin 3.2 g/dL (3.5-5.0); Alkaline Phosphatase 75 U/L (40-110); Anion Gap 15 mmol/L (10-20); BUN (Urea Nitrogen) 29 mg/dL (7.0-18.7); Bilirubin, Total 0.4 mg/dL (0.2-1.2); Calc. Creatinine Clearance 124 mL/min (70-130); Calcium 9.2 mg/dL (7.8-10.44); Carbon Dioxide 25 mmol/L (22-29); Chloride 106 mmol/L (98-107); Globulin 3.3 g/dL (2.4-3.5); Glucose 110 mg/dL (70-105); Magnesium 1.8 mg/dL (1.6-2.6); Phosphorus 3.3 mg/dL (2.3-4.7); Protein, Total 6.5 g/dL (6.0-8.3); Sodium 141 mmol/L (136-145)
[2021-07-01] MEDS ORDERED: Magnesium 2 GM/50 ML 2 GM in Premix Bag 1 BAG IVPB SCH (05:15)
[2021-07-01 05:17] LABS: #Eosinphils 0.4 thou/uL (0.0-0.7); #Lymphocytes 0.8 thou/uL (1.20-3.40); #Monocytes 0.4 thou/uL (0.11-0.59); #Neutrophils 7.3 thou/uL (1.40-6.50); %Basophils 0.4 % (0.0-1.0); %Lymphocytes 8.5 % (21.0-51.0); %Monocytes 4.1 % (0.0-10.0); Hemoglobin 9.7 g/dL (12.0-16.0); Mean Corpuscular HGB CONC 29.2 g/dL (32.0-36.0); Mean Corpuscular Hemoglobin 24.2 pg (27.0-31.0); Mean Corpuscular Volume 83.1 fL (78.0-98.0); Mean Platelet Volume 7.5 fL (7.4-10.4); Platelet Count 71 thou/uL (130-400); RBC Distribution Width 31.5 % (11.5-14.5); White Blood Cell (WBC) Count 8.9 thou/uL (4.8-10.8)
[2021-07-01 05:18] LABS: Anisocytosis SLIGHT = 6-15 cells (100X) (0-5/hpf); MDiff Complete? YES; Platelet Morphology Comment Appears Decreased
[2021-07-01] MEDS: Levothyroxine Sodium 88 MCG TAB PO SCH (05:27)
[2021-07-01] MEDS: Propofol 1,000 MG/100 ML VIAL IV PRN ×4 (05:59→22:39)
[2021-07-01] MEDS: Dexamethasone 4 mg/ml Vial SLOW IVP SCH (08:23)
[2021-07-01 08:51] LABS: INR-International Normal Ratio 1.2; Prothrombin Time 15.1 sec (12.0-14.7)
[2021-07-01 08:52] LABS: PTT 33.1 sec (22.9-36.1)
[2021-07-01] MEDS: Fentanyl CADD 100 ML IV SCH (12:00)
[2021-07-01] MEDS: Multivit, Therapeutic 1 TAB PO SCH (12:52)
[2021-07-01] MEDS: Pantoprazole 40 MG GRANULES PACKET PER TUBE SCH (12:52)
[2021-07-01] MEDS: Ascorbic Acid 500 mg Chewable Tablet PO SCH (12:52)
[2021-07-01] MEDS: Folic Acid 1 MG TAB PO SCH (12:52)
[2021-07-01] MEDS: Polyethylene Glycol 3350 17 GM Packet PER TUBE SCH (12:53)
[2021-07-01] MEDS: Senokot S 8.6-50 MG TAB PO SCH ×2 (12:53→21:40)
[2021-07-01] MEDS ORDERED: Fentanyl 100 MCG/2 ML VIAL ONE (15:36)
[2021-07-01] MEDS ORDERED: Midazolam HCl 2 mg/2 ml Vial ONE (15:36)
[2021-07-01] MEDS ORDERED: Lidocaine 1% w/Epinephrine 1:100K 20 ML VIAL ONE (15:38)
[2021-07-01] MEDS ORDERED: Bupivacaine PF 0.5% 30 ML VIAL ONE (15:38)
[2021-07-01] MEDS ORDERED: Rocuronium Bromide 10 MG/ML (10ML VIAL) ONE (16:04)
[2021-07-01] MEDS ORDERED: PROPOFOL 200 MG/20 ML VIAL ONE (16:04)
[2021-07-01] MEDS ORDERED: Glycopyrrolate 0.2 MG/ML 5 ML SYRINGE ONE (16:04)
[2021-07-01] MEDS ORDERED: Vecuronium 10 MG VIAL ONE (16:04)
[2021-07-01] MEDS: fentaNYL 75 mcg/hour Patch TD SCH (18:47)
[2021-07-01] MEDS: Zinc Sulfate 220 MG CAP PO SCH (21:44)
[2021-07-01] MEDS: Cholecalciferol 1,000 UNITS (25 MCG) TAB PO SCH (21:44)
[2021-07-01] MEDS: hydrALAZINE 20 MG/ML VIAL SLOW IVP PRN (22:06)
[2021-07-02] MEDS: Piperacillin/Tazobactam 3.375 GM in Sodium Chloride 0.9% 100 ML IVPB SCH ×3 (03:15→18:26)
[2021-07-02] MEDS: Levothyroxine Sodium 88 MCG TAB PO SCH (05:08)
[2021-07-02] MEDS: Heparin 5,000 UNITS/ML VIAL SC SCH ×3 (05:08→21:36)
[2021-07-02 05:12] LABS: ALT (SGPT) 25 U/L (8-55); AST (SGOT) 13 U/L (5-34); Alkaline Phosphatase 64 U/L (40-110); Anion Gap 14 mmol/L (10-20); BUN (Urea Nitrogen) 22 mg/dL (7.0-18.7); Bilirubin, Total 0.5 mg/dL (0.2-1.2); Calc. Creatinine Clearance 139 mL/min (70-130); Calcium 9.1 mg/dL (7.8-10.44); Carbon Dioxide 23 mmol/L (22-29); Chloride 105 mmol/L (98-107); Globulin 3.4 g/dL (2.4-3.5); Glucose 95 mg/dL (70-105); Magnesium 1.7 mg/dL (1.6-2.6); Phosphorus 2.8 mg/dL (2.3-4.7); Potassium 4.3 mmol/L (3.5-5.1); Protein, Total 6.4 g/dL (6.0-8.3); Sodium 138 mmol/L (136-145)
[2021-07-02] MEDS ORDERED: Magnesium 2 GM/50 ML 2 GM in Premix Bag 1 BAG IVPB SCH (05:15)
[2021-07-02 06:04] LABS: #Eosinphils 0.4 thou/uL (0.0-0.7); #Lymphocytes 1.1 thou/uL (1.20-3.40); #Monocytes 0.6 thou/uL (0.11-0.59); #Neutrophils 6.1 thou/uL (1.40-6.50); %Basophils 0.6 % (0.0-1.0); %Eosinophils 5.2 % (0.0-10.0); %Lymphocytes 13.6 % (21.0-51.0); %Monocytes 7.7 % (0.0-10.0); %Neutrophils 73.1 % (42.0-75.0); Anisocytosis MODERATE=16-30 cells (100X) (0-5/hpf); Hemoglobin 9.5 g/dL (12.0-16.0); Hypochromia SLIGHT = 6-15 cells (100X) (0-5/hpf); MDiff Complete? YES; Mean Corpuscular HGB CONC 29.3 g/dL (32.0-36.0); Mean Corpuscular Hemoglobin 24.5 pg (27.0-31.0); Mean Corpuscular Volume 83.7 fL (78.0-98.0); Mean Platelet Volume 8.7 fL (7.4-10.4); Microcytosis SLIGHT = 6-15 cells (100X) (0-5/hpf); Platelet Count 110 thou/uL (130-400); Platelet Morphology Comment Appears Decreased; RBC Distribution Width 31.5 % (11.5-14.5); Red Blood Cell (RBC) Count 3.86 mill/uL (4.20-5.40); White Blood Cell (WBC) Count 8.4 thou/uL (4.8-10.8)
[2021-07-02] MEDS: Propofol 1,000 MG/100 ML VIAL IV PRN ×3 (06:24→23:25)
[2021-07-02 07:05] LABS: Base Excess (BEa) 1.8 mEq/L (-2.0 to +3.0); CO2 Tension 39.3 mmHg (35.0-45.0); Calcium, Ionized (arterial) 1.19 mmol/L (1.12-1.30); Carboxyhemoglobin (COHb) 1.2 gm% (0.0-3.0); Hemoglobin (Hb) 9.7 g/dL (12.0-16.0); Potassium - ABG Lab 3.93 mmol/L (3.70-5.30); pH, Arterial 7.44 (7.35-7.45)
[2021-07-02] MEDS: Ascorbic Acid 500 mg Chewable Tablet PO SCH (07:56)
[2021-07-02] MEDS: Pantoprazole 40 MG GRANULES PACKET PER TUBE SCH (07:57)
[2021-07-02] MEDS: Dexamethasone 4 mg/ml Vial SLOW IVP SCH (07:57)
[2021-07-02] MEDS: Lorazepam 2 MG/ML VIAL SLOW IVP PRN ×2 (07:57→11:12)
[2021-07-02] MEDS: Folic Acid 1 MG TAB PO SCH (07:57)
[2021-07-02] MEDS: Multivit, Therapeutic 1 TAB PO SCH (07:57)
[2021-07-02] MEDS: Polyethylene Glycol 3350 17 GM Packet PER TUBE SCH (07:58)
[2021-07-02] MEDS: Senokot S 8.6-50 MG TAB PO SCH ×2 (07:58→21:36)
[2021-07-02 08:17] LABS: Puncture Site RRA
[2021-07-02 08:18] LABS: ALV-art Gradient 166.075 mmHg (0-20)
[2021-07-02] MEDS: HumaLOG 300 UNITS/3 ML VIAL SC PRN (13:25)
[2021-07-02] MEDS: Zinc Sulfate 220 MG CAP PO SCH (21:36)
[2021-07-02] MEDS: Cholecalciferol 1,000 UNITS (25 MCG) TAB PO SCH (21:36)
[2021-07-02] MEDS ORDERED: Fentanyl CADD 100 ML ONE (22:03)
[2021-07-02] MEDS: Fentanyl CADD 100 ML IV SCH (22:07)
[2021-07-03] MEDS: Scopolamine 1.5 mg/72 hour Patch TOP SCH (01:39)
[2021-07-03] MEDS: Piperacillin/Tazobactam 3.375 GM in Sodium Chloride 0.9% 100 ML IVPB SCH ×3 (01:39→17:18)
[2021-07-03 05:16] LABS: ALT (SGPT) 33 U/L (8-55); AST (SGOT) 28 U/L (5-34); Alkaline Phosphatase 64 U/L (40-110); Anion Gap 14 mmol/L (10-20); BUN (Urea Nitrogen) 20 mg/dL (7.0-18.7); Bilirubin, Total 0.7 mg/dL (0.2-1.2); Calc. Creatinine Clearance 135 mL/min (70-130); Calcium 8.9 mg/dL (7.8-10.44); Carbon Dioxide 23 mmol/L (22-29); Chloride 104 mmol/L (98-107); Globulin 3.9 g/dL (2.4-3.5); Glucose 90 mg/dL (70-105); Magnesium 1.8 mg/dL (1.6-2.6); Phosphorus 3.5 mg/dL (2.3-4.7); Potassium 4.9 mmol/L (3.5-5.1); Protein, Total 6.9 g/dL (6.0-8.3); Sodium 136 mmol/L (136-145)
[2021-07-03] MEDS ORDERED: Magnesium 2 GM/50 ML 2 GM in Premix Bag 1 BAG IVPB SCH (05:30)
[2021-07-03] MEDS: Levothyroxine Sodium 88 MCG TAB PO SCH (05:47)
[2021-07-03] MEDS: Heparin 5,000 UNITS/ML VIAL SC SCH ×3 (05:47→21:09)
[2021-07-03 07:58] LABS: Actual Bicarbonate (HCO3a) 25.9 mEq/L (22-28); Base Excess (BEa) 0.1 mEq/L (-2.0 to +3.0); CO2 Tension 47.3 mmHg (35.0-45.0); Calcium, Ionized (arterial) 1.19 mmol/L (1.12-1.30); Carboxyhemoglobin (COHb) 0.8 gm% (0.0-3.0); Hemoglobin (Hb) 10.5 g/dL (12.0-16.0); O2 Tension (PaO2), arterial 80.5 mmHg (80.0-100.0); Potassium - ABG Lab 4.24 mmol/L (3.70-5.30); pH, Arterial 7.36 (7.35-7.45)
[2021-07-03] MEDS: Polyethylene Glycol 3350 17 GM Packet PER TUBE SCH (08:04)
[2021-07-03] MEDS: Ascorbic Acid 500 mg Chewable Tablet PO SCH (08:05)
[2021-07-03] MEDS: Dexamethasone 4 mg/ml Vial SLOW IVP SCH (08:05)
[2021-07-03] MEDS: Senokot S 8.6-50 MG TAB PO SCH ×2 (08:06→21:10)
[2021-07-03] MEDS: Multivit, Therapeutic 1 TAB PO SCH (08:06)
[2021-07-03] MEDS: Pantoprazole 40 MG GRANULES PACKET PER TUBE SCH (08:06)
[2021-07-03] MEDS: Folic Acid 1 MG TAB PO SCH (08:06)
[2021-07-03 08:31] LABS: ALV-art Gradient 216.875 mmHg (0-20); Puncture Site RRA
[2021-07-03 10:06] LABS: Hemoglobin 9.5 g/dL (12.0-16.0); Mean Corpuscular HGB CONC 29.6 g/dL (32.0-36.0); Mean Corpuscular Hemoglobin 24.8 pg (27.0-31.0); Mean Corpuscular Volume 83.7 fL (78.0-98.0); Mean Platelet Volume 6.2 fL (7.4-10.4); Platelet Count 137 thou/uL (130-400); Red Blood Cell (RBC) Count 3.84 mill/uL (4.20-5.40); White Blood Cell (WBC) Count 9.4 thou/uL (4.8-10.8)
[2021-07-03 10:07] LABS: #Basophils 0.1 thou/uL (0.0-0.2); #Eosinphils 0.4 thou/uL (0.0-0.7); #Lymphocytes 1.1 thou/uL (1.20-3.40); #Monocytes 0.8 thou/uL (0.11-0.59); #Neutrophils 7.2 thou/uL (1.40-6.50); %Basophils 0.5 % (0.0-1.0); %Eosinophils 3.9 % (0.0-10.0); %Lymphocytes 11.2 % (21.0-51.0); %Monocytes 7.9 % (0.0-10.0); %Neutrophils 76.5 % (42.0-75.0)
[2021-07-03] MEDS: Lorazepam 2 MG/ML VIAL SLOW IVP PRN ×3 (12:21→22:36)
[2021-07-03] MEDS: fentaNYL 100 mcg/hour Patch TD SCH (12:23)
[2021-07-03] MEDS: Dexmedetomidine 1,000 MCG in Sodium Chloride 0.9% 250 ML 240 ML IVPB SCH (12:50)
[2021-07-03] MEDS: HumaLOG 300 UNITS/3 ML VIAL SC PRN (15:21)
[2021-07-03] MEDS: Zinc Sulfate 220 MG CAP PO SCH (21:10)
[2021-07-03] MEDS: Cholecalciferol 1,000 UNITS (25 MCG) TAB PO SCH (21:10)
[2021-07-04] MEDS: Piperacillin/Tazobactam 3.375 GM in Sodium Chloride 0.9% 100 ML IVPB SCH ×3 (02:19→17:43)
[2021-07-04] MEDS: Dexmedetomidine 1,000 MCG in Sodium Chloride 0.9% 250 ML 240 ML IVPB SCH ×3 (03:34→23:40)
[2021-07-04] MEDS: Lorazepam 2 MG/ML VIAL SLOW IVP PRN ×3 (03:38→19:24)
[2021-07-04 05:46] LABS: #Eosinphils 0.4 thou/uL (0.0-0.7); #Lymphocytes 0.9 thou/uL (1.20-3.40); #Monocytes 0.8 thou/uL (0.11-0.59); #Neutrophils 9.3 thou/uL (1.40-6.50); %Basophils 0.2 % (0.0-1.0); %Eosinophils 3.1 % (0.0-10.0); %Lymphocytes 7.7 % (21.0-51.0); %Monocytes 6.7 % (0.0-10.0); %Neutrophils 82.2 % (42.0-75.0); Band 24 % (5-11); Eosinophils 4 % (0-10); Hemoglobin 9.4 g/dL (12.0-16.0); Hypochromia SLIGHT = 6-15 cells (100X) (0-5/hpf); Lymphocytes 7 % (21-51); MDiff Complete? YES; Mean Corpuscular HGB CONC 28.9 g/dL (32.0-36.0); Mean Corpuscular Hemoglobin 24.2 pg (27.0-31.0); Mean Corpuscular Volume 83.9 fL (78.0-98.0); Mean Platelet Volume 6.1 fL (7.4-10.4); Metamyelocyte 1 % (0-0); Monocytes 5 % (0-10); Neutrophil 59 % (42-75); Platelet Count 180 thou/uL (130-400); RBC Distribution Width 30.8 % (11.5-14.5); Red Blood Cell (RBC) Count 3.86 mill/uL (4.20-5.40); White Blood Cell (WBC) Count 11.3 thou/uL (4.8-10.8)
[2021-07-04] MEDS: Heparin 5,000 UNITS/ML VIAL SC SCH ×3 (06:30→21:26)
[2021-07-04] MEDS: Levothyroxine Sodium 88 MCG TAB PO SCH (06:34)
[2021-07-04 07:22] LABS: Actual Bicarbonate (HCO3a) 26.5 mEq/L (22-28); Base Excess (BEa) 2.1 mEq/L (-2.0 to +3.0); CO2 Tension 40.7 mmHg (35.0-45.0); Calcium, Ionized (arterial) 1.18 mmol/L (1.12-1.30); Carboxyhemoglobin (COHb) 1.2 gm% (0.0-3.0); O2 Tension (PaO2), arterial 67.7 mmHg (80.0-100.0); Potassium - ABG Lab 3.65 mmol/L (3.70-5.30); pH, Arterial 7.43 (7.35-7.45)
[2021-07-04 07:46] LABS: ALV-art Gradient 166.625 mmHg (0-20); Puncture Site RRA
[2021-07-04] MEDS: Polyethylene Glycol 3350 17 GM Packet PER TUBE SCH (08:01)
[2021-07-04] MEDS: Dexamethasone 4 mg/ml Vial SLOW IVP SCH (08:01)
[2021-07-04] MEDS: Multivit, Therapeutic 1 TAB PO SCH (08:02)
[2021-07-04] MEDS: Folic Acid 1 MG TAB PO SCH (08:03)
[2021-07-04] MEDS: Pantoprazole 40 MG GRANULES PACKET PER TUBE SCH (08:03)
[2021-07-04] MEDS: Ascorbic Acid 500 mg Chewable Tablet PO SCH (08:03)
[2021-07-04] MEDS: Senokot S 8.6-50 MG TAB PO SCH ×2 (08:04→21:24)
[2021-07-04 08:21] LABS: Albumin 3.1 g/dL (3.5-5.0)
[2021-07-04 08:22] LABS: Chloride 105 mmol/L (98-107); Potassium 4.2 mmol/L (3.5-5.1); Sodium 138 mmol/L (136-145)
[2021-07-04 08:23] LABS: Glucose 126 mg/dL (70-105)
[2021-07-04 08:24] LABS: Globulin 3.6 g/dL (2.4-3.5); Protein, Total 6.7 g/dL (6.0-8.3)
[2021-07-04 08:25] LABS: Anion Gap 14 mmol/L (10-20); Bilirubin, Total 0.6 mg/dL (0.2-1.2); Carbon Dioxide 23 mmol/L (22-29)
[2021-07-04 08:26] LABS: Alkaline Phosphatase 75 U/L (40-110)
[2021-07-04 08:27] LABS: Calc. Creatinine Clearance 123 mL/min (70-130); Phosphorus 3.1 mg/dL (2.3-4.7)
[2021-07-04 08:28] LABS: BUN (Urea Nitrogen) 21 mg/dL (7.0-18.7)
[2021-07-04 08:29] LABS: ALT (SGPT) 43 U/L (8-55); AST (SGOT) 21 U/L (5-34); Magnesium 1.8 mg/dL (1.6-2.6)
[2021-07-04] MEDS ORDERED: Magnesium 2 GM/50 ML 2 GM in Premix Bag 1 BAG IVPB SCH (08:45)
[2021-07-04] MEDS: HumaLOG 300 UNITS/3 ML VIAL SC PRN ×2 (10:36→16:30)
[2021-07-04] MEDS: Zinc Sulfate 220 MG CAP PO SCH (21:24)
[2021-07-04] MEDS: Cholecalciferol 1,000 UNITS (25 MCG) TAB PO SCH (21:24)
[2021-07-05] MEDS: Lorazepam 2 MG/ML VIAL SLOW IVP PRN ×6 (00:05→16:54)
[2021-07-05] MEDS: Piperacillin/Tazobactam 3.375 GM in Sodium Chloride 0.9% 100 ML IVPB SCH ×3 (01:17→16:54)
[2021-07-05] MEDS: hydrALAZINE 20 MG/ML VIAL SLOW IVP PRN (03:35)
[2021-07-05 04:44] LABS: Hemoglobin A1c 6.2 % (4.0-6.0)
[2021-07-05 04:45] LABS: #Eosinphils 0.1 thou/uL (0.0-0.7); #Monocytes 0.8 thou/uL (0.11-0.59); #Neutrophils 10.1 thou/uL (1.40-6.50); %Basophils 0.4 % (0.0-1.0); %Eosinophils 1.2 % (0.0-10.0); %Lymphocytes 7.9 % (21.0-51.0); %Monocytes 6.4 % (0.0-10.0); %Neutrophils 84.1 % (42.0-75.0); Hemoglobin 9.5 g/dL (12.0-16.0); Mean Corpuscular HGB CONC 28.9 g/dL (32.0-36.0); Mean Corpuscular Hemoglobin 24.5 pg (27.0-31.0); Mean Corpuscular Volume 84.7 fL (78.0-98.0); Mean Platelet Volume 6.5 fL (7.4-10.4); Platelet Count 198 thou/uL (130-400); RBC Distribution Width 30.2 % (11.5-14.5); Red Blood Cell (RBC) Count 3.87 mill/uL (4.20-5.40); White Blood Cell (WBC) Count 12.1 thou/uL (4.8-10.8)
[2021-07-05 04:49] LABS: Phosphorus 3.4 mg/dL (2.3-4.7)
[2021-07-05 04:53] LABS: ALT (SGPT) 35 U/L (8-55); AST (SGOT) 15 U/L (5-34); Albumin 3.1 g/dL (3.5-5.0); Alkaline Phosphatase 72 U/L (40-110); Anion Gap 11 mmol/L (10-20); BUN (Urea Nitrogen) 22 mg/dL (7.0-18.7); Bilirubin, Total 0.6 mg/dL (0.2-1.2); Calc. Creatinine Clearance 140 mL/min (70-130); Calcium 9.1 mg/dL (7.8-10.44); Carbon Dioxide 28 mmol/L (22-29); Chloride 104 mmol/L (98-107); Globulin 3.5 g/dL (2.4-3.5); Glucose 98 mg/dL (70-105); Magnesium 1.9 mg/dL (1.6-2.6); Potassium 4.2 mmol/L (3.5-5.1); Protein, Total 6.6 g/dL (6.0-8.3); Sodium 139 mmol/L (136-145)
[2021-07-05] MEDS ORDERED: Magnesium 2 GM/50 ML 2 GM in Premix Bag 1 BAG IVPB SCH (05:00)
[2021-07-05] MEDS: Levothyroxine Sodium 88 MCG TAB PO SCH (06:00)
[2021-07-05] MEDS: Heparin 5,000 UNITS/ML VIAL SC SCH ×3 (06:00→21:23)
[2021-07-05 08:42] LABS: Actual Bicarbonate (HCO3a) 26.8 mEq/L (22-28); Base Excess (BEa) 1.6 mEq/L (-2.0 to +3.0); CO2 Tension 44.8 mmHg (35.0-45.0); Calcium, Ionized (arterial) 1.23 mmol/L (1.12-1.30); Carboxyhemoglobin (COHb) 1.1 gm% (0.0-3.0); Hemoglobin (Hb) 12.7 g/dL (12.0-16.0); O2 Tension (PaO2), arterial 69.9 mmHg (80.0-100.0); Potassium - ABG Lab 3.76 mmol/L (3.70-5.30)
[2021-07-05 08:44] LABS: Puncture Site LRA
[2021-07-05] MEDS: Polyethylene Glycol 3350 17 GM Packet PER TUBE SCH (09:01)
[2021-07-05] MEDS: Ascorbic Acid 500 mg Chewable Tablet PO SCH (09:02)
[2021-07-05] MEDS: Multivit, Therapeutic 1 TAB PO SCH (09:02)
[2021-07-05] MEDS: Dexamethasone 4 mg/ml Vial SLOW IVP SCH (09:02)
[2021-07-05] MEDS: Folic Acid 1 MG TAB PO SCH (09:02)
[2021-07-05] MEDS: Senokot S 8.6-50 MG TAB PO SCH ×2 (09:03→21:25)
[2021-07-05] MEDS: Pantoprazole 40 MG GRANULES PACKET PER TUBE SCH (09:03)
[2021-07-05] MEDS ORDERED: Lorazepam 2 MG/ML VIAL SLOW IVP SCH (09:30)
[2021-07-05] MEDS: ALPRAZolam 1 MG TAB PO SCH ×2 (13:09→21:22)
[2021-07-05] MEDS: HumaLOG 300 UNITS/3 ML VIAL SC PRN (16:17)
[2021-07-05] MEDS: Dexmedetomidine 1,000 MCG in Sodium Chloride 0.9% 250 ML 240 ML IVPB SCH (19:30)
[2021-07-05] MEDS: Cholecalciferol 1,000 UNITS (25 MCG) TAB PO SCH (21:22)
[2021-07-05] MEDS: Zinc Sulfate 220 MG CAP PO SCH (21:22)
[2021-07-06] MEDS: Piperacillin/Tazobactam 3.375 GM in Sodium Chloride 0.9% 100 ML IVPB SCH ×3 (01:40→16:55)
[2021-07-06] MEDS: Scopolamine 1.5 mg/72 hour Patch TOP SCH (01:41)
[2021-07-06] MEDS: Dexmedetomidine 1,000 MCG in Sodium Chloride 0.9% 250 ML 240 ML IVPB SCH ×3 (01:41→19:27)
[2021-07-06 04:34] LABS: ALT (SGPT) 33 U/L (8-55); AST (SGOT) 14 U/L (5-34); Alkaline Phosphatase 70 U/L (40-110); Anion Gap 13 mmol/L (10-20); BUN (Urea Nitrogen) 20 mg/dL (7.0-18.7); Bilirubin, Total 0.4 mg/dL (0.2-1.2); Calc. Creatinine Clearance 171 mL/min (70-130); Calcium 8.9 mg/dL (7.8-10.44); Carbon Dioxide 25 mmol/L (22-29); Chloride 105 mmol/L (98-107); Globulin 3.5 g/dL (2.4-3.5); Glucose 139 mg/dL (70-105); Magnesium 1.8 mg/dL (1.6-2.6); Phosphorus 3.7 mg/dL (2.3-4.7); Potassium 4.3 mmol/L (3.5-5.1); Protein, Total 6.5 g/dL (6.0-8.3); Sodium 139 mmol/L (136-145)
[2021-07-06] MEDS ORDERED: Magnesium 2 GM/50 ML 2 GM in Premix Bag 1 BAG IVPB SCH (04:45)
[2021-07-06] MEDS: Lorazepam 2 MG/ML VIAL SLOW IVP PRN ×5 (04:51→14:00)
[2021-07-06 05:08] LABS: #Eosinphils 0.1 thou/uL (0.0-0.7); #Lymphocytes 0.9 thou/uL (1.20-3.40); #Monocytes 0.8 thou/uL (0.11-0.59); #Neutrophils 11.1 thou/uL (1.40-6.50); %Basophils 0.3 % (0.0-1.0); %Eosinophils 0.6 % (0.0-10.0); %Lymphocytes 7.2 % (21.0-51.0); %Monocytes 5.8 % (0.0-10.0); %Neutrophils 86.1 % (42.0-75.0); Hemoglobin 7.8 g/dL (12.0-16.0); Mean Corpuscular HGB CONC 27.2 g/dL (32.0-36.0); Mean Corpuscular Hemoglobin 22.8 pg (27.0-31.0); Mean Corpuscular Volume 83.7 fL (78.0-98.0); Mean Platelet Volume 6.7 fL (7.4-10.4); Platelet Count 242 thou/uL (130-400); RBC Distribution Width 30.6 % (11.5-14.5); Red Blood Cell (RBC) Count 3.43 mill/uL (4.20-5.40); White Blood Cell (WBC) Count 12.8 thou/uL (4.8-10.8)
[2021-07-06] MEDS: Heparin 5,000 UNITS/ML VIAL SC SCH ×3 (06:17→21:46)
[2021-07-06] MEDS: Levothyroxine Sodium 88 MCG TAB PO SCH (06:20)
[2021-07-06] MEDS: Polyethylene Glycol 3350 17 GM Packet PER TUBE SCH (08:44)
[2021-07-06] MEDS: Pantoprazole 40 MG GRANULES PACKET PER TUBE SCH (08:45)
[2021-07-06] MEDS: ALPRAZolam 1 MG TAB PO SCH ×3 (08:46→21:46)
[2021-07-06] MEDS: Ascorbic Acid 500 mg Chewable Tablet PO SCH (08:46)
[2021-07-06] MEDS: Dexamethasone 4 mg/ml Vial SLOW IVP SCH (08:46)
[2021-07-06] MEDS: Folic Acid 1 MG TAB PO SCH (08:46)
[2021-07-06] MEDS: Multivit, Therapeutic 1 TAB PO SCH (08:47)
[2021-07-06] MEDS: Senokot S 8.6-50 MG TAB PO SCH ×2 (08:48→21:48)
[2021-07-06] MEDS ORDERED: OLANZapine 5 MG TAB PO SCH (09:00)
[2021-07-06] MEDS: fentaNYL 100 mcg/hour Patch TD SCH (12:58)
[2021-07-06] MEDS: HumaLOG 300 UNITS/3 ML VIAL SC PRN ×2 (16:40→22:07)
[2021-07-06] MEDS: Zinc Sulfate 220 MG CAP PO SCH (21:45)
[2021-07-06] MEDS: Cholecalciferol 1,000 UNITS (25 MCG) TAB PO SCH (21:45)
[2021-07-07] MEDS: Atropine Sulfate 1 mg/10 ml Syringe IVP PRN (00:45)
[2021-07-07] MEDS: Piperacillin/Tazobactam 3.375 GM in Sodium Chloride 0.9% 100 ML IVPB SCH ×3 (01:44→18:15)
[2021-07-07] MEDS: Heparin 5,000 UNITS/ML VIAL SC SCH ×3 (05:50→21:23)
[2021-07-07] MEDS: Levothyroxine Sodium 88 MCG TAB PO SCH (05:50)
[2021-07-07] MEDS: HumaLOG 300 UNITS/3 ML VIAL SC PRN (05:54)
[2021-07-07] MEDS: Dexmedetomidine 1,000 MCG in Sodium Chloride 0.9% 250 ML 240 ML IVPB SCH ×2 (06:48→15:33)
[2021-07-07] MEDS: Dexamethasone 4 mg/ml Vial SLOW IVP SCH (08:05)
[2021-07-07] MEDS: Pantoprazole 40 MG GRANULES PACKET PER TUBE SCH (08:05)
[2021-07-07] MEDS: Ascorbic Acid 500 mg Chewable Tablet PO SCH (08:07)
[2021-07-07] MEDS: ALPRAZolam 1 MG TAB PO SCH ×3 (08:08→20:44)
[2021-07-07] MEDS: Folic Acid 1 MG TAB PO SCH (08:08)
[2021-07-07] MEDS: Multivit, Therapeutic 1 TAB PO SCH (08:08)
[2021-07-07] MEDS: Polyethylene Glycol 3350 17 GM Packet PER TUBE SCH (08:09)
[2021-07-07] MEDS: Senokot S 8.6-50 MG TAB PO SCH ×2 (08:28→20:44)
[2021-07-07 08:41] LABS: ALT (SGPT) 29 U/L (8-55); AST (SGOT) 19 U/L (5-34); Alkaline Phosphatase 70 U/L (40-110); Anion Gap 11 mmol/L (10-20); BUN (Urea Nitrogen) 22 mg/dL (7.0-18.7); Bilirubin, Total 0.5 mg/dL (0.2-1.2); Calc. Creatinine Clearance 174 mL/min (70-130); Calcium 8.9 mg/dL (7.8-10.44); Carbon Dioxide 26 mmol/L (22-29); Chloride 106 mmol/L (98-107); Globulin 3.8 g/dL (2.4-3.5); Glucose 101 mg/dL (70-105); Magnesium 1.6 mg/dL (1.6-2.6); Phosphorus 3.1 mg/dL (2.3-4.7); Potassium 4.5 mmol/L (3.5-5.1); Protein, Total 6.8 g/dL (6.0-8.3); Sodium 138 mmol/L (136-145)
[2021-07-07 09:09] LABS: Anisocytosis MODERATE=16-30 cells (100X) (0-5/hpf); Band 6 % (5-11); Eosinophils 1 % (0-10); Hemoglobin 9.7 g/dL (12.0-16.0); Hypochromia MODERATE=16-30 cells (100X) (0-5/hpf); Lymphocytes 14 % (21-51); MDiff Complete? YES; Mean Corpuscular Hemoglobin 25.6 pg (27.0-31.0); Mean Corpuscular Volume 85.2 fL (78.0-98.0); Mean Platelet Volume 8.3 fL (7.4-10.4); Monocytes 7 % (0-10); Neutrophil 72 % (42-75); Platelet Count 217 thou/uL (130-400); Platelet Morphology Comment Appears Adequate; Polychromasia MODERATE = 3-4 cells (100X) (0-2/hpf); RBC Distribution Width 30.3 % (11.5-14.5); Schistocytes SLIGHT = 2-5 cells (100X) (0-1/hpf); White Blood Cell (WBC) Count 11.9 thou/uL (4.8-10.8)
[2021-07-07] MEDS ORDERED: Magnesium 2 GM/50 ML 2 GM in Premix Bag 1 BAG IVPB SCH (10:00)
[2021-07-07] MEDS: Lorazepam 2 MG/ML VIAL SLOW IVP PRN ×3 (11:20→22:46)
[2021-07-07] MEDS: Cholecalciferol 1,000 UNITS (25 MCG) TAB PO SCH (20:43)
[2021-07-07] MEDS: Zinc Sulfate 220 MG CAP PO SCH (20:43)
[2021-07-08] MEDS: Dexmedetomidine 1,000 MCG in Sodium Chloride 0.9% 250 ML 240 ML IVPB SCH ×2 (01:28→18:27)
[2021-07-08] MEDS: Piperacillin/Tazobactam 3.375 GM in Sodium Chloride 0.9% 100 ML IVPB SCH ×3 (02:45→18:26)
[2021-07-08] MEDS: Heparin 5,000 UNITS/ML VIAL SC SCH ×3 (05:57→21:21)
[2021-07-08] MEDS: Levothyroxine Sodium 88 MCG TAB PO SCH (05:57)
[2021-07-08 07:49] LABS: Actual Bicarbonate (HCO3a) 28.4 mEq/L (22-28); Base Excess (BEa) 2.5 mEq/L (-2.0 to +3.0); CO2 Tension 49.6 mmHg (35.0-45.0); Calcium, Ionized (arterial) 1.25 mmol/L (1.12-1.30); Carboxyhemoglobin (COHb) 0.9 gm% (0.0-3.0); Hemoglobin (Hb) 10.6 g/dL (12.0-16.0); O2 Tension (PaO2), arterial 70.5 mmHg (80.0-100.0); Potassium - ABG Lab 3.96 mmol/L (3.70-5.30); pH, Arterial 7.38 (7.35-7.45)
[2021-07-08 08:01] LABS: Puncture Site RRA
[2021-07-08] MEDS ORDERED: OLANZapine 10 MG VIAL IM SCH (09:00)
[2021-07-08] MEDS: Ascorbic Acid 500 mg Chewable Tablet PO SCH (10:01)
[2021-07-08] MEDS: ALPRAZolam 1 MG TAB PO SCH ×3 (10:02→21:20)
[2021-07-08] MEDS: Pantoprazole 40 MG GRANULES PACKET PER TUBE SCH (10:02)
[2021-07-08] MEDS: Dexamethasone 4 mg/ml Vial SLOW IVP SCH (10:02)
[2021-07-08] MEDS: Multivit, Therapeutic 1 TAB PO SCH (10:02)
[2021-07-08] MEDS: Folic Acid 1 MG TAB PO SCH (10:02)
[2021-07-08] MEDS: Senokot S 8.6-50 MG TAB PO SCH ×2 (10:03→21:21)
[2021-07-08] MEDS: Polyethylene Glycol 3350 17 GM Packet PER TUBE SCH (10:03)
[2021-07-08] MEDS: Lorazepam 2 MG/ML VIAL SLOW IVP PRN ×2 (12:21→14:57)
[2021-07-08] MEDS: OLANZapine 10 MG VIAL IM SCH (12:30)
[2021-07-08] MEDS: Sterile Water 10 ML VIAL FS PRN (12:33)
[2021-07-08 14:17] LABS: #Eosinphils 0.1 thou/uL (0.0-0.7); #Monocytes 0.2 thou/uL (0.11-0.59); #Neutrophils 14.6 thou/uL (1.40-6.50); %Basophils 0.2 % (0.0-1.0); %Eosinophils 0.9 % (0.0-10.0); %Lymphocytes 6.5 % (21.0-51.0); %Monocytes 1.3 % (0.0-10.0); Hemoglobin 10.3 g/dL (12.0-16.0); Mean Corpuscular HGB CONC 30.5 g/dL (32.0-36.0); Mean Corpuscular Volume 85.2 fL (78.0-98.0); Mean Platelet Volume 11.6 fL (7.4-10.4); Platelet Count 357 thou/uL (130-400); RBC Distribution Width 30.1 % (11.5-14.5); Red Blood Cell (RBC) Count 3.95 mill/uL (4.20-5.40)
[2021-07-08 14:47] LABS: ALT (SGPT) 32 U/L (8-55); AST (SGOT) 19 U/L (5-34); Albumin 3.4 g/dL (3.5-5.0); Alkaline Phosphatase 82 U/L (40-110); Anion Gap 14 mmol/L (10-20); BUN (Urea Nitrogen) 24 mg/dL (7.0-18.7); Bilirubin, Total 0.5 mg/dL (0.2-1.2); Calc. Creatinine Clearance 150 mL/min (70-130); Calcium 9.1 mg/dL (7.8-10.44); Carbon Dioxide 28 mmol/L (22-29); Chloride 104 mmol/L (98-107); Globulin 3.8 g/dL (2.4-3.5); Glucose 164 mg/dL (70-105); Magnesium 1.8 mg/dL (1.6-2.6); Phosphorus 3.1 mg/dL (2.3-4.7); Potassium 4.8 mmol/L (3.5-5.1); Protein, Total 7.2 g/dL (6.0-8.3); Sodium 141 mmol/L (136-145)
[2021-07-08] MEDS: Cholecalciferol 1,000 UNITS (25 MCG) TAB PO SCH (21:20)
[2021-07-08] MEDS: Zinc Sulfate 220 MG CAP PO SCH (21:21)
[2021-07-09] MEDS: Scopolamine 1.5 mg/72 hour Patch TOP SCH (01:14)
[2021-07-09] MEDS: Atropine Sulfate 1 mg/10 ml Syringe IVP PRN (01:14)
[2021-07-09] MEDS: Lorazepam 2 MG/ML VIAL SLOW IVP PRN ×5 (02:03→22:09)
[2021-07-09] MEDS: hydrALAZINE 20 MG/ML VIAL SLOW IVP PRN (03:14)
[2021-07-09] MEDS: Dexmedetomidine 1,000 MCG in Sodium Chloride 0.9% 250 ML 240 ML IVPB SCH ×3 (05:47→18:15)
[2021-07-09] MEDS: Heparin 5,000 UNITS/ML VIAL SC SCH ×3 (05:48→21:02)
[2021-07-09] MEDS: Levothyroxine Sodium 88 MCG TAB PO SCH (05:48)
[2021-07-09 06:50] LABS: ALT (SGPT) 32 U/L (8-55); AST (SGOT) 25 U/L (5-34); Albumin 3.1 g/dL (3.5-5.0); Alkaline Phosphatase 74 U/L (40-110); Anion Gap 13 mmol/L (10-20); BUN (Urea Nitrogen) 19 mg/dL (7.0-18.7); Bilirubin, Total 0.4 mg/dL (0.2-1.2); Calc. Creatinine Clearance 161 mL/min (70-130); Calcium 9.3 mg/dL (7.8-10.44); Carbon Dioxide 30 mmol/L (22-29); Chloride 104 mmol/L (98-107); Globulin 3.9 g/dL (2.4-3.5); Glucose 103 mg/dL (70-105); Magnesium 1.7 mg/dL (1.6-2.6); Potassium 4.9 mmol/L (3.5-5.1); Sodium 142 mmol/L (136-145)
[2021-07-09] MEDS ORDERED: Magnesium 2 GM/50 ML 2 GM in Premix Bag 1 BAG IVPB SCH (07:00)
[2021-07-09] MEDS: Pantoprazole 40 MG GRANULES PACKET PER TUBE SCH (09:02)
[2021-07-09] MEDS: ALPRAZolam 1 MG TAB PO SCH ×3 (09:02→20:39)
[2021-07-09] MEDS: Ascorbic Acid 500 mg Chewable Tablet PO SCH (09:02)
[2021-07-09] MEDS: Multivit, Therapeutic 1 TAB PO SCH (09:02)
[2021-07-09] MEDS: Folic Acid 1 MG TAB PO SCH (09:02)
[2021-07-09] MEDS: Polyethylene Glycol 3350 17 GM Packet PER TUBE SCH (09:03)
[2021-07-09] MEDS: Senokot S 8.6-50 MG TAB PO SCH ×2 (09:04→20:40)
[2021-07-09] MEDS: Dexamethasone 4 mg/ml Vial SLOW IVP SCH (09:05)
[2021-07-09] MEDS: OLANZapine 10 MG VIAL IM SCH (09:06)
[2021-07-09] MEDS: HumaLOG 300 UNITS/3 ML VIAL SC PRN (11:48)
[2021-07-09] MEDS: fentaNYL 100 mcg/hour Patch TD SCH (12:19)
[2021-07-09] MEDS: Cholecalciferol 1,000 UNITS (25 MCG) TAB PO SCH (20:39)
[2021-07-09] MEDS: Zinc Sulfate 220 MG CAP PO SCH (20:39)
[2021-07-10] MEDS: Dexmedetomidine 1,000 MCG in Sodium Chloride 0.9% 250 ML 240 ML IVPB SCH ×5 (00:46→23:53)
[2021-07-10] MEDS: Lorazepam 2 MG/ML VIAL SLOW IVP PRN ×2 (00:51→07:32)
[2021-07-10 04:37] LABS: ALT (SGPT) 55 U/L (8-55); AST (SGOT) 34 U/L (5-34); Albumin 2.8 g/dL (3.5-5.0); Alkaline Phosphatase 73 U/L (40-110); Anion Gap 12 mmol/L (10-20); BUN (Urea Nitrogen) 19 mg/dL (7.0-18.7); Band 45 % (5-11); Bilirubin, Total 0.7 mg/dL (0.2-1.2); Calc. Creatinine Clearance 128 mL/min (70-130); Calcium 8.9 mg/dL (7.8-10.44); Carbon Dioxide 31 mmol/L (22-29); Chloride 102 mmol/L (98-107); Globulin 3.3 g/dL (2.4-3.5); Glucose 139 mg/dL (70-105); Hemoglobin 9.1 g/dL (12.0-16.0); Lymphocytes 8 % (21-51); MDiff Complete? YES; Magnesium 1.7 mg/dL (1.6-2.6); Mean Corpuscular HGB CONC 31.1 g/dL (32.0-36.0); Mean Corpuscular Hemoglobin 26.2 pg (27.0-31.0); Mean Corpuscular Volume 84.3 fL (78.0-98.0); Mean Platelet Volume 11.7 fL (7.4-10.4); Metamyelocyte 1 % (0-0); Monocytes 2 % (0-10); Neutrophil 44 % (42-75); Phosphorus 2.6 mg/dL (2.3-4.7); Platelet Count 351 thou/uL (130-400); Platelet Morphology Comment Appears Adequate; Potassium 4.7 mmol/L (3.5-5.1); Protein, Total 6.1 g/dL (6.0-8.3); RBC Distribution Width 30.3 % (11.5-14.5); Red Blood Cell (RBC) Count 3.45 mill/uL (4.20-5.40); Sodium 140 mmol/L (136-145)
[2021-07-10] MEDS: Heparin 5,000 UNITS/ML VIAL SC SCH ×3 (05:30→23:49)
[2021-07-10] MEDS: Levothyroxine Sodium 88 MCG TAB PO SCH (05:31)
[2021-07-10] MEDS ORDERED: Magnesium 2 GM/50 ML 2 GM in Premix Bag 1 BAG IVPB SCH (06:45)
[2021-07-10] MEDS: Ascorbic Acid 500 mg Chewable Tablet PO SCH (08:22)
[2021-07-10] MEDS: ALPRAZolam 1 MG TAB PO SCH ×3 (08:23→20:05)
[2021-07-10] MEDS: Multivit, Therapeutic 1 TAB PO SCH (08:23)
[2021-07-10] MEDS: Pantoprazole 40 MG GRANULES PACKET PER TUBE SCH (08:23)
[2021-07-10] MEDS: Folic Acid 1 MG TAB PO SCH (08:23)
[2021-07-10] MEDS: Dexamethasone 4 mg/ml Vial SLOW IVP SCH (08:23)
[2021-07-10] MEDS: Polyethylene Glycol 3350 17 GM Packet PER TUBE SCH (08:24)
[2021-07-10] MEDS: OLANZapine 10 MG VIAL IM SCH (08:24)
[2021-07-10] MEDS: Senokot S 8.6-50 MG TAB PO SCH ×2 (08:24→20:05)
[2021-07-10] MEDS: HumaLOG 300 UNITS/3 ML VIAL SC PRN ×3 (11:31→23:49)
[2021-07-10] MEDS ORDERED: Cefepime 1 GM in Sodium Chloride 0.9% 100 ML IVPB SCH (18:45)
[2021-07-10] MEDS: Cholecalciferol 1,000 UNITS (25 MCG) TAB PO SCH (20:05)
[2021-07-10] MEDS: Zinc Sulfate 220 MG CAP PO SCH (20:06)
[2021-07-11] MEDS: Lorazepam 2 MG/ML VIAL SLOW IVP PRN ×5 (01:20→18:35)
[2021-07-11 05:07] LABS: ALT (SGPT) 37 U/L (8-55); AST (SGOT) 13 U/L (5-34); Albumin 2.8 g/dL (3.5-5.0); Alkaline Phosphatase 78 U/L (40-110); Anion Gap 15 mmol/L (10-20); BUN (Urea Nitrogen) 23 mg/dL (7.0-18.7); Bilirubin, Total 0.6 mg/dL (0.2-1.2); Calc. Creatinine Clearance 145 mL/min (70-130); Calcium 8.8 mg/dL (7.8-10.44); Carbon Dioxide 29 mmol/L (22-29); Chloride 103 mmol/L (98-107); Globulin 3.5 g/dL (2.4-3.5); Glucose 119 mg/dL (70-105); Magnesium 1.9 mg/dL (1.6-2.6); Phosphorus 3.5 mg/dL (2.3-4.7); Protein, Total 6.3 g/dL (6.0-8.3); Sodium 142 mmol/L (136-145)
[2021-07-11] MEDS: Dexmedetomidine 1,000 MCG in Sodium Chloride 0.9% 250 ML 240 ML IVPB SCH ×4 (05:17→22:57)
[2021-07-11] MEDS ORDERED: Cefepime 1 GM in Sodium Chloride 0.9% 100 ML IVPB SCH (06:00)
[2021-07-11] MEDS ORDERED: Magnesium 2 GM/50 ML 2 GM in Premix Bag 1 BAG IVPB SCH (06:15)
[2021-07-11] MEDS: Levothyroxine Sodium 88 MCG TAB PO SCH (06:20)
[2021-07-11] MEDS: Heparin 5,000 UNITS/ML VIAL SC SCH ×3 (06:20→21:25)
[2021-07-11] MEDS: Ascorbic Acid 500 mg Chewable Tablet PO SCH (09:10)
[2021-07-11] MEDS: Multivit, Therapeutic 1 TAB PO SCH (09:10)
[2021-07-11] MEDS: Dexamethasone 4 mg/ml Vial SLOW IVP SCH (09:11)
[2021-07-11] MEDS: Pantoprazole 40 MG GRANULES PACKET PER TUBE SCH (09:11)
[2021-07-11] MEDS: ALPRAZolam 1 MG TAB PO SCH ×3 (09:11→21:25)
[2021-07-11] MEDS: OLANZapine 10 MG VIAL IM SCH (09:12)
[2021-07-11] MEDS: Folic Acid 1 MG TAB PO SCH (09:13)
[2021-07-11] MEDS: Polyethylene Glycol 3350 17 GM Packet PER TUBE SCH (09:35)
[2021-07-11] MEDS: Senokot S 8.6-50 MG TAB PO SCH ×2 (09:36→20:48)
[2021-07-11] MEDS: HumaLOG 300 UNITS/3 ML VIAL SC PRN ×3 (11:01→23:58)
[2021-07-11 12:18] LABS: Hemoglobin 8.9 g/dL (12.0-16.0); Mean Corpuscular HGB CONC 30.3 g/dL (32.0-36.0); Mean Corpuscular Hemoglobin 26.1 pg (27.0-31.0); Mean Platelet Volume 10.9 fL (7.4-10.4); Platelet Count 393 thou/uL (130-400); RBC Distribution Width 30.5 % (11.5-14.5); White Blood Cell (WBC) Count 18.9 thou/uL (4.8-10.8)
[2021-07-11 12:26] LABS: #Eosinphils 0.3 thou/uL (0.0-0.7); #Lymphocytes 0.6 thou/uL (1.20-3.40); #Monocytes 0.4 thou/uL (0.11-0.59); #Neutrophils 17.7 thou/uL (1.40-6.50); %Basophils 0.1 % (0.0-1.0); %Eosinophils 1.3 % (0.0-10.0); %Lymphocytes 3.1 % (21.0-51.0); %Monocytes 1.8 % (0.0-10.0); %Neutrophils 93.6 % (42.0-75.0); Anisocytosis MODERATE=16-30 cells (100X) (0-5/hpf); Hypochromia SLIGHT = 6-15 cells (100X) (0-5/hpf); MDiff Complete? YES; Platelet Morphology Comment Appears Adequate; Polychromasia SLIGHT = 2-3 cells (100X) (0-2/hpf); Tear Drops SLIGHT = 2-5 cells (100X) (0-1/hpf)
[2021-07-11] MEDS: Cefepime 2 GM in Sodium Chloride 0.9% 100 ML IVPB SCH ×2 (14:19→21:24)
[2021-07-11] MEDS: Zinc Sulfate 220 MG CAP PO SCH (21:27)
[2021-07-11] MEDS: Cholecalciferol 1,000 UNITS (25 MCG) TAB PO SCH (21:27)
[2021-07-12] MEDS ORDERED: Acetaminophen 650 MG/20.3 ML UDCUP PER TUBE PRN (00:45)
[2021-07-12] MEDS: Acetaminophen 650 MG/20.3 ML UDCUP PER TUBE PRN ×2 (00:58→15:28)
[2021-07-12] MEDS: Scopolamine 1.5 mg/72 hour Patch TOP SCH (00:58)
[2021-07-12 04:12] LABS: #Eosinphils 0.1 thou/uL (0.0-0.7); #Lymphocytes 1.1 thou/uL (1.20-3.40); #Monocytes 0.7 thou/uL (0.11-0.59); #Neutrophils 15.3 thou/uL (1.40-6.50); %Eosinophils 0.5 % (0.0-10.0); %Lymphocytes 6.5 % (21.0-51.0); Hemoglobin 8.1 g/dL (12.0-16.0); Mean Corpuscular Hemoglobin 25.5 pg (27.0-31.0); Mean Corpuscular Volume 87.7 fL (78.0-98.0); Platelet Count 356 thou/uL (130-400); RBC Distribution Width 30.2 % (11.5-14.5); Red Blood Cell (RBC) Count 3.18 mill/uL (4.20-5.40); White Blood Cell (WBC) Count 17.2 thou/uL (4.8-10.8)
[2021-07-12 04:34] LABS: ALT (SGPT) 28 U/L (8-55); AST (SGOT) 10 U/L (5-34); Albumin 2.8 g/dL (3.5-5.0); Alkaline Phosphatase 78 U/L (40-110); Anion Gap 12 mmol/L (10-20); BUN (Urea Nitrogen) 26 mg/dL (7.0-18.7); Bilirubin, Total 0.6 mg/dL (0.2-1.2); Calc. Creatinine Clearance 123 mL/min (70-130); Calcium 8.8 mg/dL (7.8-10.44); Carbon Dioxide 31 mmol/L (22-29); Chloride 102 mmol/L (98-107); Globulin 3.6 g/dL (2.4-3.5); Glucose 155 mg/dL (70-105); Potassium 5.4 mmol/L (3.5-5.1); Protein, Total 6.4 g/dL (6.0-8.3); Sodium 140 mmol/L (136-145)
[2021-07-12] MEDS: HumaLOG 300 UNITS/3 ML VIAL SC PRN ×4 (04:34→23:07)
[2021-07-12] MEDS: Dexmedetomidine 1,000 MCG in Sodium Chloride 0.9% 250 ML 240 ML IVPB SCH ×3 (04:44→17:31)
[2021-07-12] MEDS: Cefepime 2 GM in Sodium Chloride 0.9% 100 ML IVPB SCH (05:55)
[2021-07-12] MEDS: Heparin 5,000 UNITS/ML VIAL SC SCH ×3 (05:56→21:19)
[2021-07-12] MEDS: Levothyroxine Sodium 88 MCG TAB PO SCH (06:01)
[2021-07-12] MEDS: Multivit, Therapeutic 1 TAB PO SCH (09:06)
[2021-07-12] MEDS: ALPRAZolam 1 MG TAB PO SCH ×3 (09:06→21:20)
[2021-07-12] MEDS: Ascorbic Acid 500 mg Chewable Tablet PO SCH (09:06)
[2021-07-12] MEDS: Folic Acid 1 MG TAB PO SCH (09:06)
[2021-07-12] MEDS: Dexamethasone 4 mg/ml Vial SLOW IVP SCH (09:07)
[2021-07-12] MEDS: Pantoprazole 40 MG GRANULES PACKET PER TUBE SCH (09:07)
[2021-07-12] MEDS: Polyethylene Glycol 3350 17 GM Packet PER TUBE SCH (09:26)
[2021-07-12] MEDS: OLANZapine 10 MG VIAL IM SCH (09:26)
[2021-07-12] MEDS: Senokot S 8.6-50 MG TAB PO SCH ×2 (09:27→21:20)
[2021-07-12] MEDS: Lorazepam 2 MG/ML VIAL SLOW IVP PRN ×5 (11:36→23:08)
[2021-07-12] MEDS: fentaNYL 100 mcg/hour Patch TD SCH (11:54)
[2021-07-12] MEDS ORDERED: Meropenem 2 GM in Sodium Chloride 0.9% 100 ML IVPB SCH (13:00)
[2021-07-12] MEDS: Cholecalciferol 1,000 UNITS (25 MCG) TAB PO SCH (21:20)
[2021-07-12] MEDS: Zinc Sulfate 220 MG CAP PO SCH (21:20)
[2021-07-12] MEDS: Meropenem 2 GM in Sodium Chloride 0.9% 100 ML IVPB SCH (21:28)
[2021-07-13] MEDS: Dexmedetomidine 1,000 MCG in Sodium Chloride 0.9% 250 ML 240 ML IVPB SCH ×3 (00:39→12:35)
[2021-07-13] MEDS: Lorazepam 2 MG/ML VIAL SLOW IVP PRN ×6 (04:06→18:36)
[2021-07-13 04:10] LABS: Anion Gap 12 mmol/L (10-20); BUN (Urea Nitrogen) 23 mg/dL (7.0-18.7); Calc. Creatinine Clearance 127 mL/min (70-130); Calcium 8.8 mg/dL (7.8-10.44); Carbon Dioxide 29 mmol/L (22-29); Chloride 102 mmol/L (98-107); Glucose 168 mg/dL (70-105); Magnesium 1.9 mg/dL (1.6-2.6); Potassium 5.1 mmol/L (3.5-5.1); Sodium 138 mmol/L (136-145)
[2021-07-13 04:24] LABS: Mean Corpuscular HGB CONC 28.9 g/dL (32.0-36.0); Mean Corpuscular Hemoglobin 25.8 pg (27.0-31.0); Mean Corpuscular Volume 89.1 fL (78.0-98.0); Mean Platelet Volume 10.6 fL (7.4-10.4); Platelet Count 353 thou/uL (130-400); RBC Distribution Width 29.5 % (11.5-14.5); Red Blood Cell (RBC) Count 3.11 mill/uL (4.20-5.40); White Blood Cell (WBC) Count 17.9 thou/uL (4.8-10.8)
[2021-07-13] MEDS: HumaLOG 300 UNITS/3 ML VIAL SC PRN ×4 (04:34→22:51)
[2021-07-13 04:49] LABS: Anisocytosis MODERATE=16-30 cells (100X) (0-5/hpf); Band 8 % (5-11); Hypochromia SLIGHT = 6-15 cells (100X) (0-5/hpf); Lymphocytes 3 % (21-51); MDiff Complete? YES; Metamyelocyte 1 % (0-0); Monocytes 6 % (0-10); Myelocyte 1 % (0-0); Neutrophil 80 % (42-75); Ovalocytes SLIGHT = 2-5 cells (100X) (0-1/hpf); Platelet Morphology Comment Appears Adequate; Reactive Lymphocytes 1 % (0-10); Schistocytes SLIGHT = 2-5 cells (100X) (0-1/hpf)
[2021-07-13] MEDS: Heparin 5,000 UNITS/ML VIAL SC SCH ×3 (05:46→21:04)
[2021-07-13] MEDS: Meropenem 2 GM in Sodium Chloride 0.9% 100 ML IVPB SCH ×3 (05:46→20:48)
[2021-07-13] MEDS: Levothyroxine Sodium 88 MCG TAB PO SCH (05:47)
[2021-07-13] MEDS ORDERED: Magnesium 2 GM/50 ML 2 GM in Premix Bag 1 BAG IVPB SCH (06:15)
[2021-07-13] MEDS: ALPRAZolam 1 MG TAB PO SCH ×3 (09:50→20:49)
[2021-07-13] MEDS: Ascorbic Acid 500 mg Chewable Tablet PO SCH (09:51)
[2021-07-13] MEDS: Pantoprazole 40 MG GRANULES PACKET PER TUBE SCH (09:51)
[2021-07-13] MEDS: Folic Acid 1 MG TAB PO SCH (09:51)
[2021-07-13] MEDS: Multivit, Therapeutic 1 TAB PO SCH (09:51)
[2021-07-13] MEDS: Dexamethasone 4 mg/ml Vial SLOW IVP SCH (09:52)
[2021-07-13] MEDS: OLANZapine 10 MG VIAL IM SCH (09:55)
[2021-07-13] MEDS: Polyethylene Glycol 3350 17 GM Packet PER TUBE SCH (09:55)
[2021-07-13] MEDS: Senokot S 8.6-50 MG TAB PO SCH ×2 (09:56→21:04)
[2021-07-13] MEDS: Cholecalciferol 1,000 UNITS (25 MCG) TAB PO SCH (20:48)
[2021-07-13] MEDS: Zinc Sulfate 220 MG CAP PO SCH (20:49)
[2021-07-14] MEDS: Dexmedetomidine 1,000 MCG in Sodium Chloride 0.9% 250 ML 240 ML IVPB SCH ×4 (00:55→19:57)
[2021-07-14] MEDS: Lorazepam 2 MG/ML VIAL SLOW IVP PRN ×6 (04:00→21:08)
[2021-07-14 04:43] LABS: Band 5 % (5-11); Hemoglobin 8.4 g/dL (12.0-16.0); Hypochromia SLIGHT = 6-15 cells (100X) (0-5/hpf); Lymphocytes 11 % (21-51); MDiff Complete? YES; Mean Corpuscular HGB CONC 28.9 g/dL (32.0-36.0); Mean Corpuscular Hemoglobin 25.2 pg (27.0-31.0); Mean Corpuscular Volume 87.3 fL (78.0-98.0); Mean Platelet Volume 10.8 fL (7.4-10.4); Monocytes 14 % (0-10); Neutrophil 70 % (42-75); Platelet Count 362 thou/uL (130-400); Platelet Morphology Comment Appears Adequate; RBC Distribution Width 29.1 % (11.5-14.5); Red Blood Cell (RBC) Count 3.33 mill/uL (4.20-5.40); White Blood Cell (WBC) Count 16.7 thou/uL (4.8-10.8)
[2021-07-14 04:44] LABS: Anion Gap 11 mmol/L (10-20); BUN (Urea Nitrogen) 23 mg/dL (7.0-18.7); Calc. Creatinine Clearance 137 mL/min (70-130); Calcium 9.3 mg/dL (7.8-10.44); Carbon Dioxide 33 mmol/L (22-29); Chloride 99 mmol/L (98-107); Glucose 151 mg/dL (70-105); Magnesium 1.9 mg/dL (1.6-2.6); Potassium 5.5 mmol/L (3.5-5.1); Sodium 137 mmol/L (136-145)
[2021-07-14] MEDS: Meropenem 2 GM in Sodium Chloride 0.9% 100 ML IVPB SCH ×3 (05:02→21:09)
[2021-07-14] MEDS: Heparin 5,000 UNITS/ML VIAL SC SCH ×3 (05:03→21:08)
[2021-07-14] MEDS: Levothyroxine Sodium 88 MCG TAB PO SCH (05:06)
[2021-07-14] MEDS ORDERED: Magnesium 2 GM/50 ML 2 GM in Premix Bag 1 BAG IVPB SCH (05:30)
[2021-07-14 07:20] LABS: Actual Bicarbonate (HCO3a) 33.9 mEq/L (22-28); Base Excess (BEa) 7.7 mEq/L (-2.0 to +3.0); Calcium, Ionized (arterial) 1.25 mmol/L (1.12-1.30); Carboxyhemoglobin (COHb) 0.7 gm% (0.0-3.0); Hemoglobin (Hb) 9.4 g/dL (12.0-16.0); Potassium - ABG Lab 4.91 mmol/L (3.70-5.30); pH, Arterial 7.39 (7.35-7.45)
[2021-07-14 08:17] LABS: O2 Tension (PaO2), arterial 58.2 mmHg (80.0-100.0); Puncture Site RRA
[2021-07-14] MEDS: Folic Acid 1 MG TAB PO SCH (09:08)
[2021-07-14] MEDS: Senokot S 8.6-50 MG TAB PO SCH ×2 (09:08→21:09)
[2021-07-14] MEDS: Multivit, Therapeutic 1 TAB PO SCH (09:09)
[2021-07-14] MEDS: Pantoprazole 40 MG GRANULES PACKET PER TUBE SCH (09:09)
[2021-07-14] MEDS: Ascorbic Acid 500 mg Chewable Tablet PO SCH (09:09)
[2021-07-14] MEDS: Polyethylene Glycol 3350 17 GM Packet PER TUBE SCH (09:09)
[2021-07-14] MEDS: Dexamethasone 4 mg/ml Vial SLOW IVP SCH (09:10)
[2021-07-14] MEDS: ALPRAZolam 1 MG TAB PO SCH ×3 (09:10→21:09)
[2021-07-14] MEDS: OLANZapine 10 MG VIAL IM SCH (09:42)
[2021-07-14] MEDS ORDERED: Insulin Regular 300 UNITS/3 ML VIAL IVP SCH (10:30)
[2021-07-14] MEDS ORDERED: Dextrose 50% Abboject 50 ML SYRINGE SLOW IVP SCH (10:30)
[2021-07-14 17:17] LABS: Potassium 5.3 mmol/L (3.5-5.1)
[2021-07-14] MEDS: HumaLOG 300 UNITS/3 ML VIAL SC PRN (17:27)
[2021-07-14] MEDS: Cholecalciferol 1,000 UNITS (25 MCG) TAB PO SCH (21:08)
[2021-07-14] MEDS: Zinc Sulfate 220 MG CAP PO SCH (21:09)
[2021-07-15] MEDS: Dexmedetomidine 1,000 MCG in Sodium Chloride 0.9% 250 ML 240 ML IVPB SCH ×2 (01:40→20:59)
[2021-07-15] MEDS: Scopolamine 1.5 mg/72 hour Patch TOP SCH (01:41)
[2021-07-15] MEDS: HumaLOG 300 UNITS/3 ML VIAL SC PRN ×3 (04:19→23:02)
[2021-07-15 04:39] LABS: Anion Gap 14 mmol/L (10-20); BUN (Urea Nitrogen) 24 mg/dL (7.0-18.7); Calc. Creatinine Clearance 156 mL/min (70-130); Calcium 9.2 mg/dL (7.8-10.44); Carbon Dioxide 33 mmol/L (22-29); Chloride 99 mmol/L (98-107); Glucose 157 mg/dL (70-105); Potassium 5.3 mmol/L (3.5-5.1); Sodium 141 mmol/L (136-145)
[2021-07-15 04:55] LABS: Hemoglobin 8.7 g/dL (12.0-16.0); Mean Corpuscular Hemoglobin 26.2 pg (27.0-31.0); Mean Corpuscular Volume 87.4 fL (78.0-98.0); Mean Platelet Volume 10.9 fL (7.4-10.4); Platelet Count 324 thou/uL (130-400); RBC Distribution Width 29.1 % (11.5-14.5); Red Blood Cell (RBC) Count 3.32 mill/uL (4.20-5.40); White Blood Cell (WBC) Count 15.9 thou/uL (4.8-10.8)
[2021-07-15 05:41] LABS: Anisocytosis MODERATE=16-30 cells (100X) (0-5/hpf); Band 11 % (5-11); Hypochromia SLIGHT = 6-15 cells (100X) (0-5/hpf); Lymphocytes 9 % (21-51); MDiff Complete? YES; Monocytes 5 % (0-10); Myelocyte 1 % (0-0); Neutrophil 74 % (42-75)
[2021-07-15] MEDS: Heparin 5,000 UNITS/ML VIAL SC SCH (05:51)
[2021-07-15] MEDS: Levothyroxine Sodium 88 MCG TAB PO SCH (05:51)
[2021-07-15] MEDS: Meropenem 2 GM in Sodium Chloride 0.9% 100 ML IVPB SCH ×3 (05:51→20:58)
[2021-07-15 07:15] LABS: Actual Bicarbonate (HCO3a) 36.5 mEq/L (22-28); Base Excess (BEa) 10.7 mEq/L (-2.0 to +3.0); CO2 Tension 58.4 mmHg (35.0-45.0); Calcium, Ionized (arterial) 1.22 mmol/L (1.12-1.30); Carboxyhemoglobin (COHb) 1.2 gm% (0.0-3.0); Hemoglobin (Hb) 7.9 g/dL (12.0-16.0); O2 Tension (PaO2), arterial 64.3 mmHg (80.0-100.0); Potassium - ABG Lab 4.47 mmol/L (3.70-5.30); pH, Arterial 7.41 (7.35-7.45)
[2021-07-15 07:56] LABS: Puncture Site RRA
[2021-07-15] MEDS: OLANZapine 10 MG VIAL IM SCH (10:28)
[2021-07-15] MEDS: ALPRAZolam 1 MG TAB PO SCH (10:29)
[2021-07-15] MEDS: Sterile Water 10 ML VIAL FS PRN (10:29)
[2021-07-15] MEDS: Pantoprazole 40 MG GRANULES PACKET PER TUBE SCH (10:30)
[2021-07-15] MEDS: Ascorbic Acid 500 mg Chewable Tablet PO SCH (10:30)
[2021-07-15] MEDS: Multivit, Therapeutic 1 TAB PO SCH (10:30)
[2021-07-15] MEDS: Dexamethasone 4 mg/ml Vial SLOW IVP SCH (10:31)
[2021-07-15] MEDS: Folic Acid 1 MG TAB PO SCH (10:31)
[2021-07-15] MEDS: ALPRAZolam 0.5 MG TAB PO SCH ×3 (10:36→21:09)
[2021-07-15] MEDS: Polyethylene Glycol 3350 17 GM Packet PER TUBE SCH (10:48)
[2021-07-15] MEDS: Senokot S 8.6-50 MG TAB PO SCH ×2 (10:48→21:09)
[2021-07-15] MEDS: fentaNYL 50 mcg/hour Patch TD SCH (10:59)
[2021-07-15] MEDS: Lorazepam 2 MG/ML VIAL SLOW IVP PRN ×4 (13:09→19:31)
[2021-07-15] MEDS: Cholecalciferol 1,000 UNITS (25 MCG) TAB PO SCH (20:58)
[2021-07-15] MEDS: Zinc Sulfate 220 MG CAP PO SCH (20:58)
[2021-07-16] MEDS: Acetaminophen 650 MG/20.3 ML UDCUP PER TUBE PRN (00:52)
[2021-07-16] MEDS: Dexmedetomidine 1,000 MCG in Sodium Chloride 0.9% 250 ML 240 ML IVPB SCH ×4 (03:41→21:41)
[2021-07-16] MEDS: HumaLOG 300 UNITS/3 ML VIAL SC PRN ×2 (04:15→12:30)
[2021-07-16 04:24] LABS: Phosphorus 2.9 mg/dL (2.3-4.7)
[2021-07-16 04:27] LABS: Anion Gap 12 mmol/L (10-20); BUN (Urea Nitrogen) 22 mg/dL (7.0-18.7); Calc. Creatinine Clearance 149 mL/min (70-130); Carbon Dioxide 35 mmol/L (22-29); Chloride 100 mmol/L (98-107); Potassium 4.9 mmol/L (3.5-5.1); Sodium 142 mmol/L (136-145)
[2021-07-16 04:28] LABS: ALT (SGPT) 50 U/L (8-55); AST (SGOT) 32 U/L (5-34); Albumin 2.9 g/dL (3.5-5.0); Alkaline Phosphatase 80 U/L (40-110); Bilirubin, Total 0.4 mg/dL (0.2-1.2); Calcium 9.2 mg/dL (7.8-10.44); Globulin 3.9 g/dL (2.4-3.5); Glucose 159 mg/dL (70-105); Magnesium 1.6 mg/dL (1.6-2.6); Protein, Total 6.8 g/dL (6.0-8.3)
[2021-07-16 04:42] LABS: #Eosinphils 0.1 thou/uL (0.0-0.7); #Neutrophils 11.5 thou/uL (1.40-6.50); %Basophils 0.3 % (0.0-1.0); %Lymphocytes 13.4 % (21.0-51.0); %Monocytes 6.8 % (0.0-10.0); %Neutrophils 78.5 % (42.0-75.0); Anisocytosis MODERATE=16-30 cells (100X) (0-5/hpf); Hemoglobin 9.2 g/dL (12.0-16.0); Hypochromia SLIGHT = 6-15 cells (100X) (0-5/hpf); MDiff Complete? YES; Mean Corpuscular HGB CONC 30.1 g/dL (32.0-36.0); Mean Corpuscular Hemoglobin 26.7 pg (27.0-31.0); Mean Corpuscular Volume 88.5 fL (78.0-98.0); Mean Platelet Volume 10.6 fL (7.4-10.4); Platelet Count 316 thou/uL (130-400); RBC Distribution Width 28.9 % (11.5-14.5); Red Blood Cell (RBC) Count 3.46 mill/uL (4.20-5.40); White Blood Cell (WBC) Count 14.7 thou/uL (4.8-10.8)
[2021-07-16] MEDS ORDERED: Magnesium 2 GM/50 ML 2 GM in Premix Bag 1 BAG IVPB SCH ×2 (04:45→09:15)
[2021-07-16] MEDS: Levothyroxine Sodium 88 MCG TAB PO SCH (06:17)
[2021-07-16] MEDS: Ascorbic Acid 500 mg Chewable Tablet PO SCH (08:08)
[2021-07-16] MEDS: ALPRAZolam 0.5 MG TAB PO SCH ×3 (08:08→20:00)
[2021-07-16] MEDS: Enoxaparin Sodium 40 MG/0.4 ML SYRINGE SC SCH ×2 (08:08→20:00)
[2021-07-16] MEDS: Folic Acid 1 MG TAB PO SCH (08:08)
[2021-07-16] MEDS: Multivit, Therapeutic 1 TAB PO SCH (08:09)
[2021-07-16] MEDS: Dexamethasone 4 mg/ml Vial SLOW IVP SCH (08:09)
[2021-07-16] MEDS: Senokot S 8.6-50 MG TAB PO SCH ×2 (08:09→21:48)
[2021-07-16] MEDS: Pantoprazole 40 MG GRANULES PACKET PER TUBE SCH (08:09)
[2021-07-16] MEDS: Polyethylene Glycol 3350 17 GM Packet PER TUBE SCH (08:09)
[2021-07-16 08:21] LABS: Actual Bicarbonate (HCO3a) 34.5 mEq/L (22-28); Base Excess (BEa) 8.1 mEq/L (-2.0 to +3.0); CO2 Tension 57.6 mmHg (35.0-45.0); Calcium, Ionized (arterial) 1.19 mmol/L (1.12-1.30); Carboxyhemoglobin (COHb) 0.8 gm% (0.0-3.0); Hemoglobin (Hb) 11.2 g/dL (12.0-16.0); O2 Tension (PaO2), arterial 65.6 mmHg (80.0-100.0); Potassium - ABG Lab 4.34 mmol/L (3.70-5.30)
[2021-07-16 08:24] LABS: Puncture Site RRA
[2021-07-16] MEDS: Meropenem 2 GM in Sodium Chloride 0.9% 100 ML IVPB SCH ×3 (08:45→20:00)
[2021-07-16] MEDS ORDERED: Magnesium Sulfate 2 GM in Sodium Chloride 0.9% 100 ML IVPB SCH (08:45)
[2021-07-16] MEDS: Lorazepam 2 MG/ML VIAL SLOW IVP PRN ×5 (08:45→21:24)
[2021-07-16] MEDS: OLANZapine 10 MG VIAL IM SCH (12:26)
[2021-07-16] MEDS: Sterile Water 10 ML VIAL FS PRN (12:26)
[2021-07-16] MEDS: Cholecalciferol 1,000 UNITS (25 MCG) TAB PO SCH (20:00)
[2021-07-16] MEDS: Zinc Sulfate 220 MG CAP PO SCH (20:00)
[2021-07-17] MEDS: Dexmedetomidine 1,000 MCG in Sodium Chloride 0.9% 250 ML 240 ML IVPB SCH ×2 (04:15→10:03)
[2021-07-17 04:39] LABS: ALT (SGPT) 56 U/L (8-55); AST (SGOT) 39 U/L (5-34); Albumin 2.8 g/dL (3.5-5.0); Alkaline Phosphatase 74 U/L (40-110); Anion Gap 11 mmol/L (10-20); BUN (Urea Nitrogen) 21 mg/dL (7.0-18.7); Bilirubin, Total 0.5 mg/dL (0.2-1.2); Calc. Creatinine Clearance 148 mL/min (70-130); Calcium 9.1 mg/dL (7.8-10.44); Carbon Dioxide 36 mmol/L (22-29); Chloride 98 mmol/L (98-107); Globulin 3.8 g/dL (2.4-3.5); Glucose 174 mg/dL (70-105); Magnesium 1.9 mg/dL (1.6-2.6); Phosphorus 2.6 mg/dL (2.3-4.7); Potassium 4.7 mmol/L (3.5-5.1); Protein, Total 6.6 g/dL (6.0-8.3); Sodium 140 mmol/L (136-145)
[2021-07-17] MEDS: HumaLOG 300 UNITS/3 ML VIAL SC PRN ×3 (04:51→17:20)
[2021-07-17] MEDS: Meropenem 2 GM in Sodium Chloride 0.9% 100 ML IVPB SCH ×3 (04:56→22:25)
[2021-07-17] MEDS: Levothyroxine Sodium 88 MCG TAB PO SCH (05:02)
[2021-07-17] MEDS ORDERED: Magnesium 2 GM/50 ML 2 GM in Premix Bag 1 BAG IVPB SCH (05:30)
[2021-07-17 05:42] LABS: #Basophils 0.1 thou/uL (0.0-0.2); #Eosinphils 0.2 thou/uL (0.0-0.7); #Lymphocytes 1.8 thou/uL (1.20-3.40); #Monocytes 0.7 thou/uL (0.11-0.59); #Neutrophils 10.2 thou/uL (1.40-6.50); %Basophils 0.4 % (0.0-1.0); %Eosinophils 1.7 % (0.0-10.0); %Lymphocytes 13.6 % (21.0-51.0); %Monocytes 5.8 % (0.0-10.0); %Neutrophils 78.5 % (42.0-75.0); Hemoglobin 8.7 g/dL (12.0-16.0); Large Platelets SLIGHT; MDiff Complete? YES; Mean Corpuscular Hemoglobin 26.2 pg (27.0-31.0); Mean Corpuscular Volume 87.3 fL (78.0-98.0); Mean Platelet Volume 10.7 fL (7.4-10.4); Platelet Count 320 thou/uL (130-400); Platelet Morphology Comment Appears Adequate; RBC Distribution Width 29.1 % (11.5-14.5); Red Blood Cell (RBC) Count 3.33 mill/uL (4.20-5.40); White Blood Cell (WBC) Count 12.9 thou/uL (4.8-10.8)
[2021-07-17] MEDS: ALPRAZolam 0.5 MG TAB PO SCH ×3 (10:02→22:08)
[2021-07-17] MEDS: Dexamethasone 4 mg/ml Vial SLOW IVP SCH (10:02)
[2021-07-17] MEDS: Multivit, Therapeutic 1 TAB PO SCH (10:03)
[2021-07-17] MEDS: Folic Acid 1 MG TAB PO SCH (10:03)
[2021-07-17] MEDS: Enoxaparin Sodium 40 MG/0.4 ML SYRINGE SC SCH ×2 (10:03→22:08)
[2021-07-17] MEDS: Pantoprazole 40 MG GRANULES PACKET PER TUBE SCH (10:03)
[2021-07-17] MEDS: Ascorbic Acid 500 mg Chewable Tablet PO SCH (10:03)
[2021-07-17] MEDS: OLANZapine 10 MG VIAL IM SCH (10:05)
[2021-07-17] MEDS: Sterile Water 10 ML VIAL FS PRN (10:06)
[2021-07-17] MEDS: Senokot S 8.6-50 MG TAB PO SCH ×2 (10:26→22:08)
[2021-07-17] MEDS: Polyethylene Glycol 3350 17 GM Packet PER TUBE SCH (10:26)
[2021-07-17] MEDS: Lorazepam 2 MG/ML VIAL SLOW IVP PRN (11:19)
[2021-07-17] MEDS: Cholecalciferol 1,000 UNITS (25 MCG) TAB PO SCH (22:08)
[2021-07-17] MEDS: Zinc Sulfate 220 MG CAP PO SCH (22:09)
[2021-07-18] MEDS: Dexmedetomidine 1,000 MCG in Sodium Chloride 0.9% 250 ML 240 ML IVPB SCH ×2 (03:40→18:28)
[2021-07-18 04:29] LABS: ALT (SGPT) 81 U/L (8-55); AST (SGOT) 69 U/L (5-34); Alkaline Phosphatase 82 U/L (40-110); Anion Gap 11 mmol/L (10-20); BUN (Urea Nitrogen) 22 mg/dL (7.0-18.7); Bilirubin, Total 0.5 mg/dL (0.2-1.2); Calc. Creatinine Clearance 158 mL/min (70-130); Calcium 9.1 mg/dL (7.8-10.44); Carbon Dioxide 35 mmol/L (22-29); Chloride 98 mmol/L (98-107); Globulin 3.8 g/dL (2.4-3.5); Glucose 120 mg/dL (70-105); Phosphorus 2.7 mg/dL (2.3-4.7); Potassium 4.8 mmol/L (3.5-5.1); Protein, Total 6.8 g/dL (6.0-8.3); Sodium 139 mmol/L (136-145)
[2021-07-18] MEDS ORDERED: Magnesium 2 GM/50 ML 2 GM in Premix Bag 1 BAG IVPB SCH (05:15)
[2021-07-18 05:25] LABS: #Basophils 0.1 thou/uL (0.0-0.2); #Eosinphils 0.1 thou/uL (0.0-0.7); #Lymphocytes 1.4 thou/uL (1.20-3.40); #Monocytes 0.6 thou/uL (0.11-0.59); #Neutrophils 10.6 thou/uL (1.40-6.50); %Basophils 0.5 % (0.0-1.0); %Eosinophils 0.9 % (0.0-10.0); %Lymphocytes 11.1 % (21.0-51.0); %Neutrophils 82.6 % (42.0-75.0); Hemoglobin 9.9 g/dL (12.0-16.0); Mean Corpuscular HGB CONC 30.1 g/dL (32.0-36.0); Mean Corpuscular Volume 86.6 fL (78.0-98.0); Mean Platelet Volume 5.6 fL (7.4-10.4); Platelet Count 304 thou/uL (130-400); White Blood Cell (WBC) Count 12.8 thou/uL (4.8-10.8)
[2021-07-18 05:26] LABS: Anisocytosis MODERATE=16-30 cells (100X) (0-5/hpf); MDiff Complete? YES; Platelet Morphology Comment Appears Adequate; Polychromasia SLIGHT = 2-3 cells (100X) (0-2/hpf); Target Cells SLIGHT = 2-5 cells (100X) (0-1/hpf)
[2021-07-18] MEDS: Meropenem 2 GM in Sodium Chloride 0.9% 100 ML IVPB SCH ×3 (05:35→20:52)
[2021-07-18] MEDS: Levothyroxine Sodium 88 MCG TAB PO SCH (06:38)
[2021-07-18] MEDS: Senokot S 8.6-50 MG TAB PO SCH ×2 (08:09→20:53)
[2021-07-18] MEDS: Polyethylene Glycol 3350 17 GM Packet PER TUBE SCH (08:09)
[2021-07-18] MEDS: ALPRAZolam 0.5 MG TAB PO SCH ×3 (08:22→20:52)
[2021-07-18] MEDS: Pantoprazole 40 MG GRANULES PACKET PER TUBE SCH (08:23)
[2021-07-18] MEDS: Dexamethasone 4 mg/ml Vial SLOW IVP SCH (08:23)
[2021-07-18] MEDS: Folic Acid 1 MG TAB PO SCH (08:23)
[2021-07-18] MEDS: Ascorbic Acid 500 mg Chewable Tablet PO SCH (08:23)
[2021-07-18] MEDS: Lorazepam 2 MG/ML VIAL SLOW IVP PRN ×6 (08:23→15:52)
[2021-07-18] MEDS: Multivit, Therapeutic 1 TAB PO SCH (08:24)
[2021-07-18] MEDS: Enoxaparin Sodium 40 MG/0.4 ML SYRINGE SC SCH ×2 (08:24→20:53)
[2021-07-18] MEDS: OLANZapine 10 MG VIAL IM SCH (09:13)
[2021-07-18] MEDS: fentaNYL 50 mcg/hour Patch TD SCH (09:55)
[2021-07-18] MEDS: HumaLOG 300 UNITS/3 ML VIAL SC PRN (11:29)
[2021-07-18] MEDS: Cholecalciferol 1,000 UNITS (25 MCG) TAB PO SCH (20:52)
[2021-07-18] MEDS: Zinc Sulfate 220 MG CAP PO SCH (20:53)
[2021-07-19] MEDS: Dexmedetomidine 1,000 MCG in Sodium Chloride 0.9% 250 ML 240 ML IVPB SCH ×3 (02:14→22:31)
[2021-07-19 05:08] LABS: ALT (SGPT) 91 U/L (8-55); AST (SGOT) 68 U/L (5-34); Albumin 2.9 g/dL (3.5-5.0); Alkaline Phosphatase 84 U/L (40-110); Anion Gap 14 mmol/L (10-20); BUN (Urea Nitrogen) 20 mg/dL (7.0-18.7); Bilirubin, Total 0.5 mg/dL (0.2-1.2); Calc. Creatinine Clearance 144 mL/min (70-130); Carbon Dioxide 31 mmol/L (22-29); Chloride 98 mmol/L (98-107); Glucose 162 mg/dL (70-105); Magnesium 1.9 mg/dL (1.6-2.6); Phosphorus 3.2 mg/dL (2.3-4.7); Potassium 4.9 mmol/L (3.5-5.1); Protein, Total 6.9 g/dL (6.0-8.3); Sodium 138 mmol/L (136-145)
[2021-07-19] MEDS: HumaLOG 300 UNITS/3 ML VIAL SC PRN ×3 (05:25→22:41)
[2021-07-19] MEDS: Meropenem 2 GM in Sodium Chloride 0.9% 100 ML IVPB SCH ×3 (05:25→20:09)
[2021-07-19 05:45] LABS: #Basophils 0.1 thou/uL (0.0-0.2); #Eosinphils 0.2 thou/uL (0.0-0.7); #Lymphocytes 1.3 thou/uL (1.20-3.40); #Monocytes 0.4 thou/uL (0.11-0.59); #Neutrophils 9.9 thou/uL (1.40-6.50); %Basophils 0.6 % (0.0-1.0); %Eosinophils 1.7 % (0.0-10.0); %Lymphocytes 11.2 % (21.0-51.0); %Monocytes 3.2 % (0.0-10.0); %Neutrophils 83.3 % (42.0-75.0); Anisocytosis MODERATE=16-30 cells (100X) (0-5/hpf); Hemoglobin 10.4 g/dL (12.0-16.0); Hypochromia SLIGHT = 6-15 cells (100X) (0-5/hpf); MDiff Complete? YES; Mean Corpuscular Hemoglobin 26.4 pg (27.0-31.0); Mean Corpuscular Volume 87.9 fL (78.0-98.0); Mean Platelet Volume 6.8 fL (7.4-10.4); Platelet Count 298 thou/uL (130-400); Platelet Morphology Comment Appears Increased; RBC Distribution Width 28.9 % (11.5-14.5); Red Blood Cell (RBC) Count 3.93 mill/uL (4.20-5.40); White Blood Cell (WBC) Count 11.9 thou/uL (4.8-10.8)
[2021-07-19] MEDS: Levothyroxine Sodium 88 MCG TAB PO SCH (06:19)
[2021-07-19] MEDS ORDERED: Magnesium 2 GM/50 ML 2 GM in Premix Bag 1 BAG IVPB SCH (07:00)
[2021-07-19] MEDS: Dexamethasone 4 mg/ml Vial SLOW IVP SCH (07:49)
[2021-07-19] MEDS: Lorazepam 2 MG/ML VIAL SLOW IVP PRN ×4 (07:49→16:16)
[2021-07-19] MEDS: OLANZapine 10 MG VIAL IM SCH (07:50)
[2021-07-19] MEDS: Folic Acid 1 MG TAB PO SCH (07:50)
[2021-07-19] MEDS: Multivit, Therapeutic 1 TAB PO SCH (07:50)
[2021-07-19] MEDS: Ascorbic Acid 500 mg Chewable Tablet PO SCH (07:50)
[2021-07-19] MEDS: Enoxaparin Sodium 40 MG/0.4 ML SYRINGE SC SCH ×2 (07:50→20:09)
[2021-07-19] MEDS: ALPRAZolam 0.5 MG TAB PO SCH ×3 (07:51→20:10)
[2021-07-19] MEDS: Pantoprazole 40 MG GRANULES PACKET PER TUBE SCH (07:52)
[2021-07-19] MEDS: Polyethylene Glycol 3350 17 GM Packet PER TUBE SCH (07:52)
[2021-07-19] MEDS: Senokot S 8.6-50 MG TAB PO SCH ×2 (07:52→20:09)
[2021-07-19] MEDS: Zinc Sulfate 220 MG CAP PO SCH (20:09)
[2021-07-19] MEDS: Cholecalciferol 1,000 UNITS (25 MCG) TAB PO SCH (20:09)
[2021-07-20] MEDS: Dexmedetomidine 1,000 MCG in Sodium Chloride 0.9% 250 ML 240 ML IVPB SCH ×3 (04:32→20:35)
[2021-07-20] MEDS: Meropenem 2 GM in Sodium Chloride 0.9% 100 ML IVPB SCH ×3 (04:32→20:35)
[2021-07-20] MEDS: Levothyroxine Sodium 88 MCG TAB PO SCH (05:30)
[2021-07-20] MEDS: Multivit, Therapeutic 1 TAB PO SCH (08:35)
[2021-07-20] MEDS: Pantoprazole 40 MG GRANULES PACKET PER TUBE SCH (08:35)
[2021-07-20] MEDS: Ascorbic Acid 500 mg Chewable Tablet PO SCH (08:35)
[2021-07-20] MEDS: ALPRAZolam 0.5 MG TAB PO SCH ×3 (08:35→20:36)
[2021-07-20] MEDS: Folic Acid 1 MG TAB PO SCH (08:35)
[2021-07-20] MEDS: Senokot S 8.6-50 MG TAB PO SCH ×2 (08:35→20:36)
[2021-07-20] MEDS: Dexamethasone 4 mg/ml Vial SLOW IVP SCH (08:36)
[2021-07-20] MEDS: Polyethylene Glycol 3350 17 GM Packet PER TUBE SCH (08:36)
[2021-07-20] MEDS: Enoxaparin Sodium 40 MG/0.4 ML SYRINGE SC SCH ×2 (08:36→20:35)
[2021-07-20] MEDS: OLANZapine 10 MG VIAL IM SCH (08:37)
[2021-07-20 10:11] LABS: #Basophils 0.1 thou/uL (0.0-0.2); #Eosinphils 0.5 thou/uL (0.0-0.7); #Monocytes 0.5 thou/uL (0.11-0.59); #Neutrophils 11.6 thou/uL (1.40-6.50); %Basophils 0.4 % (0.0-1.0); %Eosinophils 3.4 % (0.0-10.0); %Lymphocytes 7.3 % (21.0-51.0); %Monocytes 3.8 % (0.0-10.0); Hemoglobin 10.3 g/dL (12.0-16.0); Mean Corpuscular HGB CONC 30.1 g/dL (32.0-36.0); Mean Corpuscular Volume 86.4 fL (78.0-98.0); Platelet Count 296 thou/uL (130-400); RBC Distribution Width 28.7 % (11.5-14.5); Red Blood Cell (RBC) Count 3.96 mill/uL (4.20-5.40); White Blood Cell (WBC) Count 13.6 thou/uL (4.8-10.8)
[2021-07-20 10:39] LABS: Anisocytosis MODERATE=16-30 cells (100X) (0-5/hpf); Hypochromia SLIGHT = 6-15 cells (100X) (0-5/hpf); MDiff Complete? YES; Platelet Morphology Comment Appears Adequate; Polychromasia SLIGHT = 2-3 cells (100X) (0-2/hpf)
[2021-07-20] MEDS: Cholecalciferol 1,000 UNITS (25 MCG) TAB PO SCH (20:36)
[2021-07-20] MEDS: Zinc Sulfate 220 MG CAP PO SCH (20:36)
[2021-07-21] MEDS: Dexmedetomidine 1,000 MCG in Sodium Chloride 0.9% 250 ML 240 ML IVPB SCH ×3 (04:04→19:16)
[2021-07-21] MEDS: Meropenem 2 GM in Sodium Chloride 0.9% 100 ML IVPB SCH ×3 (05:03→20:45)
[2021-07-21] MEDS: HumaLOG 300 UNITS/3 ML VIAL SC PRN ×2 (05:37→16:34)
[2021-07-21] MEDS: Levothyroxine Sodium 88 MCG TAB PO SCH (05:41)
[2021-07-21] MEDS: Senokot S 8.6-50 MG TAB PO SCH ×2 (08:17→20:44)
[2021-07-21] MEDS: Folic Acid 1 MG TAB PO SCH (08:17)
[2021-07-21] MEDS: Ascorbic Acid 500 mg Chewable Tablet PO SCH (08:17)
[2021-07-21] MEDS: Multivit, Therapeutic 1 TAB PO SCH (08:17)
[2021-07-21] MEDS: Pantoprazole 40 MG GRANULES PACKET PER TUBE SCH (08:18)
[2021-07-21] MEDS: ALPRAZolam 0.5 MG TAB PO SCH ×3 (08:18→20:45)
[2021-07-21] MEDS: Polyethylene Glycol 3350 17 GM Packet PER TUBE SCH (08:18)
[2021-07-21] MEDS: Dexamethasone 4 mg/ml Vial SLOW IVP SCH (08:18)
[2021-07-21] MEDS: OLANZapine 10 MG VIAL IM SCH (08:18)
[2021-07-21] MEDS: Enoxaparin Sodium 40 MG/0.4 ML SYRINGE SC SCH ×2 (08:19→20:43)
[2021-07-21 10:02] LABS: Anion Gap 13 mmol/L (10-20); BUN (Urea Nitrogen) 26 mg/dL (7.0-18.7); Calc. Creatinine Clearance 153 mL/min (70-130); Calcium 9.6 mg/dL (7.8-10.44); Carbon Dioxide 29 mmol/L (22-29); Chloride 101 mmol/L (98-107); Glucose 142 mg/dL (70-105); Potassium 5.2 mmol/L (3.5-5.1); Sodium 138 mmol/L (136-145)
[2021-07-21 10:13] LABS: #Basophils 0.1 thou/uL (0.0-0.2); #Eosinphils 0.5 thou/uL (0.0-0.7); #Lymphocytes 1.6 thou/uL (1.20-3.40); #Monocytes 0.7 thou/uL (0.11-0.59); #Neutrophils 9.3 thou/uL (1.40-6.50); %Basophils 0.6 % (0.0-1.0); %Eosinophils 3.9 % (0.0-10.0); %Lymphocytes 13.4 % (21.0-51.0); %Monocytes 5.5 % (0.0-10.0); %Neutrophils 76.7 % (42.0-75.0); Anisocytosis MODERATE=16-30 cells (100X) (0-5/hpf); Hemoglobin 10.2 g/dL (12.0-16.0); MDiff Complete? YES; Mean Corpuscular HGB CONC 30.1 g/dL (32.0-36.0); Mean Corpuscular Hemoglobin 25.9 pg (27.0-31.0); Mean Corpuscular Volume 86.1 fL (78.0-98.0); Mean Platelet Volume 11.5 fL (7.4-10.4); Platelet Count 291 thou/uL (130-400); RBC Distribution Width 28.7 % (11.5-14.5); Red Blood Cell (RBC) Count 3.92 mill/uL (4.20-5.40); White Blood Cell (WBC) Count 12.2 thou/uL (4.8-10.8)
[2021-07-21] MEDS: fentaNYL 50 mcg/hour Patch TD SCH (11:36)
[2021-07-21] MEDS ORDERED: Heparin 1,000 UNITS/ML VIAL ONE (14:10)
[2021-07-21] MEDS: Cholecalciferol 1,000 UNITS (25 MCG) TAB PO SCH (20:44)
[2021-07-21] MEDS: Zinc Sulfate 220 MG CAP PO SCH (20:44)
[2021-07-22] MEDS: Dexmedetomidine 1,000 MCG in Sodium Chloride 0.9% 250 ML 240 ML IVPB SCH ×4 (01:12→19:26)
[2021-07-22] MEDS: Meropenem 2 GM in Sodium Chloride 0.9% 100 ML IVPB SCH ×3 (04:39→20:27)
[2021-07-22] MEDS: Levothyroxine Sodium 88 MCG TAB PO SCH (06:02)
[2021-07-22 07:58] LABS: Actual Bicarbonate (HCO3a) 27.7 mEq/L (22-28); CO2 Tension 48.7 mmHg (35.0-45.0); Calcium, Ionized (arterial) 1.21 mmol/L (1.12-1.30); Carboxyhemoglobin (COHb) 0.5 gm% (0.0-3.0); Hemoglobin (Hb) 10.3 g/dL (12.0-16.0); Potassium - ABG Lab 4.67 mmol/L (3.70-5.30); pH, Arterial 7.37 (7.35-7.45)
[2021-07-22 08:05] LABS: ALV-art Gradient 172.125 mmHg (0-20); O2 Tension (PaO2), arterial 52.2 mmHg (80.0-100.0); Puncture Site RRA
[2021-07-22] MEDS: ALPRAZolam 0.5 MG TAB PO SCH ×3 (08:56→20:47)
[2021-07-22] MEDS: Polyethylene Glycol 3350 17 GM Packet PER TUBE SCH (08:56)
[2021-07-22] MEDS: Pantoprazole 40 MG GRANULES PACKET PER TUBE SCH (08:57)
[2021-07-22] MEDS: Folic Acid 1 MG TAB PO SCH (08:57)
[2021-07-22] MEDS: Senokot S 8.6-50 MG TAB PO SCH ×2 (08:57→20:27)
[2021-07-22] MEDS: Enoxaparin Sodium 40 MG/0.4 ML SYRINGE SC SCH ×2 (08:58→20:27)
[2021-07-22] MEDS: Dexamethasone 4 mg/ml Vial SLOW IVP SCH (08:58)
[2021-07-22] MEDS: Multivit, Therapeutic 1 TAB PO SCH (08:58)
[2021-07-22] MEDS: Ascorbic Acid 500 mg Chewable Tablet PO SCH (08:58)
[2021-07-22] MEDS: OLANZapine 10 MG VIAL IM SCH (09:04)
[2021-07-22 11:18] LABS: Anion Gap 16 mmol/L (10-20); BUN (Urea Nitrogen) 29 mg/dL (7.0-18.7); Calc. Creatinine Clearance 0 mL/min (70-130); Calcium 9.3 mg/dL (7.8-10.44); Carbon Dioxide 28 mmol/L (22-29); Chloride 100 mmol/L (98-107); Glucose 171 mg/dL (70-105); Potassium 4.8 mmol/L (3.5-5.1); Sodium 139 mmol/L (136-145)
[2021-07-22] MEDS: Lorazepam 2 MG/ML VIAL SLOW IVP PRN ×4 (11:37→22:58)
[2021-07-22 11:42] LABS: #Basophils 0.1 thou/uL (0.0-0.2); #Eosinphils 0.4 thou/uL (0.0-0.7); #Lymphocytes 1.4 thou/uL (1.20-3.40); #Monocytes 0.8 thou/uL (0.11-0.59); #Neutrophils 15.2 thou/uL (1.40-6.50); %Basophils 0.5 % (0.0-1.0); %Eosinophils 2.2 % (0.0-10.0); %Lymphocytes 7.6 % (21.0-51.0); %Monocytes 4.6 % (0.0-10.0); %Neutrophils 85.1 % (42.0-75.0); Anisocytosis MODERATE=16-30 cells (100X) (0-5/hpf); Band 10 % (5-11); Eosinophils 1 % (0-10); Hemoglobin 9.9 g/dL (12.0-16.0); Lymphocytes 9 % (21-51); MDiff Complete? YES; Mean Corpuscular HGB CONC 30.5 g/dL (32.0-36.0); Mean Corpuscular Hemoglobin 26.4 pg (27.0-31.0); Mean Corpuscular Volume 86.7 fL (78.0-98.0); Mean Platelet Volume 6.7 fL (7.4-10.4); Monocytes 2 % (0-10); Neutrophil 78 % (42-75); Platelet Count 266 thou/uL (130-400); Platelet Morphology Comment Appears Adequate; Polychromasia SLIGHT = 2-3 cells (100X) (0-2/hpf); RBC Distribution Width 28.4 % (11.5-14.5); Red Blood Cell (RBC) Count 3.75 mill/uL (4.20-5.40); White Blood Cell (WBC) Count 18.5 thou/uL (4.8-10.8)
[2021-07-22] MEDS: Cholecalciferol 1,000 UNITS (25 MCG) TAB PO SCH (20:28)
[2021-07-22] MEDS: Zinc Sulfate 220 MG CAP PO SCH (20:29)
[2021-07-23] MEDS: HumaLOG 300 UNITS/3 ML VIAL SC PRN (03:51)
[2021-07-23] MEDS: Meropenem 2 GM in Sodium Chloride 0.9% 100 ML IVPB SCH ×3 (05:39→21:32)
[2021-07-23] MEDS: Levothyroxine Sodium 88 MCG TAB PO SCH (05:58)
[2021-07-23 07:37] LABS: Actual Bicarbonate (HCO3a) 32.8 mEq/L (22-28); Base Excess (BEa) 6.7 mEq/L (-2.0 to +3.0); CO2 Tension 56.5 mmHg (35.0-45.0); Calcium, Ionized (arterial) 1.19 mmol/L (1.12-1.30); Carboxyhemoglobin (COHb) 0.3 gm% (0.0-3.0); O2 Tension (PaO2), arterial 73.4 mmHg (80.0-100.0); Potassium - ABG Lab 4.37 mmol/L (3.70-5.30); pH, Arterial 7.38 (7.35-7.45)
[2021-07-23] MEDS: Lorazepam 2 MG/ML VIAL SLOW IVP PRN ×2 (07:55→09:32)
[2021-07-23 08:11] LABS: ALV-art Gradient 141.175 mmHg (0-20); Puncture Site RRA
[2021-07-23] MEDS: Senokot S 8.6-50 MG TAB PO SCH ×2 (08:53→21:32)
[2021-07-23] MEDS: Folic Acid 1 MG TAB PO SCH (08:53)
[2021-07-23] MEDS: Enoxaparin Sodium 40 MG/0.4 ML SYRINGE SC SCH ×2 (08:53→21:31)
[2021-07-23] MEDS: Ascorbic Acid 500 mg Chewable Tablet PO SCH (08:53)
[2021-07-23] MEDS: Dexamethasone 4 mg/ml Vial SLOW IVP SCH (08:53)
[2021-07-23] MEDS: Pantoprazole 40 MG GRANULES PACKET PER TUBE SCH (08:53)
[2021-07-23] MEDS: Multivit, Therapeutic 1 TAB PO SCH (08:53)
[2021-07-23] MEDS: ALPRAZolam 0.5 MG TAB PO SCH ×3 (08:53→21:32)
[2021-07-23] MEDS: Polyethylene Glycol 3350 17 GM Packet PER TUBE SCH (08:55)
[2021-07-23] MEDS: OLANZapine 10 MG VIAL IM SCH (08:55)
[2021-07-23] MEDS: Dexmedetomidine 1,000 MCG in Sodium Chloride 0.9% 250 ML 240 ML IVPB SCH (13:04)
[2021-07-23 16:23] LABS: #Basophils 0.1 thou/uL (0.0-0.2); #Eosinphils 0.1 thou/uL (0.0-0.7); #Monocytes 0.6 thou/uL (0.11-0.59); #Neutrophils 13.2 thou/uL (1.40-6.50); %Basophils 0.4 % (0.0-1.0); %Eosinophils 0.8 % (0.0-10.0); %Lymphocytes 6.4 % (21.0-51.0); %Monocytes 4.2 % (0.0-10.0); %Neutrophils 88.3 % (42.0-75.0); Hemoglobin 9.6 g/dL (12.0-16.0); Mean Corpuscular HGB CONC 31.5 g/dL (32.0-36.0); Mean Corpuscular Hemoglobin 27.1 pg (27.0-31.0); Mean Corpuscular Volume 86.2 fL (78.0-98.0); Mean Platelet Volume 6.4 fL (7.4-10.4); Platelet Count 259 thou/uL (130-400); RBC Distribution Width 28.2 % (11.5-14.5); Red Blood Cell (RBC) Count 3.52 mill/uL (4.20-5.40)
[2021-07-23] MEDS: Cholecalciferol 1,000 UNITS (25 MCG) TAB PO SCH (21:31)
[2021-07-23] MEDS: Zinc Sulfate 220 MG CAP PO SCH (21:32)
[2021-07-24] MEDS: Ondansetron PF 4 MG/2 ML Vial IVP PRN ×2 (03:17→09:20)
[2021-07-24] MEDS: Meropenem 2 GM in Sodium Chloride 0.9% 100 ML IVPB SCH ×3 (04:17→20:44)
[2021-07-24 04:25] LABS: Hemoglobin 9.4 g/dL (12.0-16.0); Mean Corpuscular HGB CONC 29.7 g/dL (32.0-36.0); Mean Corpuscular Hemoglobin 26.1 pg (27.0-31.0); Mean Corpuscular Volume 87.7 fL (78.0-98.0); Mean Platelet Volume 6.1 fL (7.4-10.4); Platelet Count 266 thou/uL (130-400); RBC Distribution Width 28.2 % (11.5-14.5); White Blood Cell (WBC) Count 9.7 thou/uL (4.8-10.8)
[2021-07-24 04:40] LABS: Anion Gap 11 mmol/L (10-20); BUN (Urea Nitrogen) 22 mg/dL (7.0-18.7); Calc. Creatinine Clearance 167 mL/min (70-130); Calcium 9.6 mg/dL (7.8-10.44); Carbon Dioxide 36 mmol/L (22-29); Chloride 98 mmol/L (98-107); Glucose 99 mg/dL (70-105); Potassium 4.5 mmol/L (3.5-5.1); Sodium 140 mmol/L (136-145)
[2021-07-24 05:07] LABS: Thyroid Stimulating Hormone 18.1598 uIU/mL (0.35-4.94)
[2021-07-24] MEDS: Levothyroxine Sodium 88 MCG TAB PO SCH (06:29)
[2021-07-24 07:30] LABS: Actual Bicarbonate (HCO3a) 34.4 mEq/L (22-28); Base Excess (BEa) 8.2 mEq/L (-2.0 to +3.0); CO2 Tension 56.6 mmHg (35.0-45.0); Carboxyhemoglobin (COHb) 0.3 gm% (0.0-3.0); Hemoglobin (Hb) 9.9 g/dL (12.0-16.0); O2 Tension (PaO2), arterial 86.5 mmHg (80.0-100.0); Potassium - ABG Lab 4.34 mmol/L (3.70-5.30)
[2021-07-24 07:47] LABS: Puncture Site RRA
[2021-07-24] MEDS: Ascorbic Acid 500 mg Chewable Tablet PO SCH (08:44)
[2021-07-24] MEDS: Enoxaparin Sodium 40 MG/0.4 ML SYRINGE SC SCH ×2 (08:44→20:43)
[2021-07-24] MEDS: Senokot S 8.6-50 MG TAB PO SCH ×2 (08:44→20:42)
[2021-07-24] MEDS: Pantoprazole 40 MG GRANULES PACKET PER TUBE SCH (08:44)
[2021-07-24] MEDS: Folic Acid 1 MG TAB PO SCH (08:44)
[2021-07-24] MEDS: Multivit, Therapeutic 1 TAB PO SCH (08:44)
[2021-07-24] MEDS: Dexamethasone 4 mg/ml Vial SLOW IVP SCH (08:45)
[2021-07-24] MEDS: ALPRAZolam 0.5 MG TAB PO SCH ×3 (08:45→20:42)
[2021-07-24] MEDS: Polyethylene Glycol 3350 17 GM Packet PER TUBE SCH (08:45)
[2021-07-24] MEDS ORDERED: OLANZapine 10 MG VIAL IM PRN (09:00)
[2021-07-24] MEDS: fentaNYL 50 mcg/hour Patch TD SCH (10:19)
[2021-07-24] MEDS: Metoclopramide HCl 10 MG/2 ML VIAL IVP PRN (12:10)
[2021-07-24] MEDS: Dexmedetomidine 1,000 MCG in Sodium Chloride 0.9% 250 ML 240 ML IVPB SCH (15:14)
[2021-07-24] MEDS: Zinc Sulfate 220 MG CAP PO SCH (20:42)
[2021-07-24] MEDS: Cholecalciferol 1,000 UNITS (25 MCG) TAB PO SCH (20:43)
[2021-07-25] MEDS: Dexmedetomidine 1,000 MCG in Sodium Chloride 0.9% 250 ML 240 ML IVPB SCH (02:27)
[2021-07-25] MEDS: Levothyroxine Sodium 88 MCG TAB PO SCH (05:33)
[2021-07-25] MEDS: Meropenem 2 GM in Sodium Chloride 0.9% 100 ML IVPB SCH ×3 (05:40→20:41)
[2021-07-25] MEDS: Senokot S 8.6-50 MG TAB PO SCH ×2 (08:20→20:41)
[2021-07-25] MEDS: Dexamethasone 4 mg/ml Vial SLOW IVP SCH (08:20)
[2021-07-25] MEDS: Ascorbic Acid 500 mg Chewable Tablet PO SCH (08:20)
[2021-07-25] MEDS: ALPRAZolam 0.5 MG TAB PO SCH ×3 (08:20→20:41)
[2021-07-25] MEDS: Pantoprazole 40 MG GRANULES PACKET PER TUBE SCH (08:20)
[2021-07-25] MEDS: Multivit, Therapeutic 1 TAB PO SCH (08:20)
[2021-07-25] MEDS: Folic Acid 1 MG TAB PO SCH (08:20)
[2021-07-25] MEDS: Enoxaparin Sodium 40 MG/0.4 ML SYRINGE SC SCH ×2 (08:21→20:38)
[2021-07-25] MEDS: Polyethylene Glycol 3350 17 GM Packet PER TUBE SCH (08:21)
[2021-07-25] MEDS: Metoclopramide HCl 10 MG/2 ML VIAL IVP PRN ×2 (08:28→20:41)
[2021-07-25] MEDS: Zinc Sulfate 220 MG CAP PO SCH (20:41)
[2021-07-25] MEDS: Cholecalciferol 1,000 UNITS (25 MCG) TAB PO SCH (20:41)
[2021-07-26] MEDS: Dexmedetomidine 1,000 MCG in Sodium Chloride 0.9% 250 ML 240 ML IVPB SCH ×2 (05:58→10:42)
[2021-07-26] MEDS: Levothyroxine Sodium 88 MCG TAB PO SCH (05:58)
[2021-07-26] MEDS: Enoxaparin Sodium 40 MG/0.4 ML SYRINGE SC SCH ×2 (09:06→21:29)
[2021-07-26] MEDS: Senokot S 8.6-50 MG TAB PO SCH ×2 (09:07→21:28)
[2021-07-26] MEDS: Folic Acid 1 MG TAB PO SCH (09:07)
[2021-07-26] MEDS: Dexamethasone 4 mg/ml Vial SLOW IVP SCH (09:07)
[2021-07-26] MEDS: Polyethylene Glycol 3350 17 GM Packet PER TUBE SCH (09:07)
[2021-07-26] MEDS: Pantoprazole 40 MG GRANULES PACKET PER TUBE SCH (09:07)
[2021-07-26] MEDS: Multivit, Therapeutic 1 TAB PO SCH (09:07)
[2021-07-26] MEDS: Ascorbic Acid 500 mg Chewable Tablet PO SCH (09:07)
[2021-07-26] MEDS: ALPRAZolam 0.5 MG TAB PO SCH ×3 (09:24→21:29)
[2021-07-26 09:46] LABS: #Basophils 0.1 thou/uL (0.0-0.2); #Eosinphils 0.4 thou/uL (0.0-0.7); #Lymphocytes 1.6 thou/uL (1.20-3.40); #Monocytes 0.9 thou/uL (0.11-0.59); #Neutrophils 4.9 thou/uL (1.40-6.50); %Basophils 1.2 % (0.0-1.0); %Lymphocytes 20.1 % (21.0-51.0); %Monocytes 11.4 % (0.0-10.0); %Neutrophils 62.3 % (42.0-75.0); Hemoglobin 9.8 g/dL (12.0-16.0); Mean Corpuscular HGB CONC 30.4 g/dL (32.0-36.0); Mean Corpuscular Hemoglobin 26.5 pg (27.0-31.0); Mean Platelet Volume 11.5 fL (7.4-10.4); Platelet Count 273 thou/uL (130-400); RBC Distribution Width 28.3 % (11.5-14.5); Red Blood Cell (RBC) Count 3.71 mill/uL (4.20-5.40); White Blood Cell (WBC) Count 7.9 thou/uL (4.8-10.8)
[2021-07-26 09:59] LABS: Anion Gap 14 mmol/L (10-20); BUN (Urea Nitrogen) 17 mg/dL (7.0-18.7); Calc. Creatinine Clearance 0 mL/min (70-130); Calcium 9.6 mg/dL (7.8-10.44); Carbon Dioxide 34 mmol/L (22-29); Chloride 98 mmol/L (98-107); Glucose 117 mg/dL (70-105); Potassium 4.4 mmol/L (3.5-5.1); Sodium 142 mmol/L (136-145)
[2021-07-26 10:38] LABS: Anisocytosis MODERATE=16-30 cells (100X) (0-5/hpf); Hypochromia SLIGHT = 6-15 cells (100X) (0-5/hpf); MDiff Complete? YES; Platelet Morphology Comment Appears Adequate; Polychromasia SLIGHT = 2-3 cells (100X) (0-2/hpf)
[2021-07-26] MEDS: Cholecalciferol 1,000 UNITS (25 MCG) TAB PO SCH (21:28)
[2021-07-26] MEDS: Zinc Sulfate 220 MG CAP PO SCH (21:30)
[2021-07-27] MEDS: Lorazepam 2 MG/ML VIAL SLOW IVP PRN (00:52)
[2021-07-27] MEDS: Ondansetron PF 4 MG/2 ML Vial IVP PRN (06:02)
[2021-07-27] MEDS: Levothyroxine Sodium 88 MCG TAB PO SCH (06:02)
[2021-07-27] MEDS: Enoxaparin Sodium 40 MG/0.4 ML SYRINGE SC SCH ×2 (09:18→21:19)
[2021-07-27] MEDS: Dexamethasone 4 mg/ml Vial SLOW IVP SCH (09:18)
[2021-07-27] MEDS: Ascorbic Acid 500 mg Chewable Tablet PO SCH (09:19)
[2021-07-27] MEDS: Pantoprazole 40 MG GRANULES PACKET PER TUBE SCH (09:19)
[2021-07-27] MEDS: ALPRAZolam 0.5 MG TAB PO SCH ×3 (09:19→21:19)
[2021-07-27] MEDS: Multivit, Therapeutic 1 TAB PO SCH (09:19)
[2021-07-27] MEDS: Folic Acid 1 MG TAB PO SCH (09:19)
[2021-07-27] MEDS: Polyethylene Glycol 3350 17 GM Packet PER TUBE SCH (09:20)
[2021-07-27] MEDS: Senokot S 8.6-50 MG TAB PO SCH ×2 (09:20→21:19)
[2021-07-27] MEDS ORDERED: Dexamethasone 1 MG TAB PER TUBE SCH ×2 (11:00→13:15)
[2021-07-27 15:00] VITALS: BMI 37.4
[2021-07-27] MEDS: Cholecalciferol 1,000 UNITS (25 MCG) TAB PO SCH (21:18)
[2021-07-27] MEDS: Zinc Sulfate 220 MG CAP PO SCH (21:19)
[2021-07-28 04:23] LABS: Anion Gap 17 mmol/L (10-20); BUN (Urea Nitrogen) 16 mg/dL (7.0-18.7); Calc. Creatinine Clearance 147 mL/min (70-130); Calcium 9.5 mg/dL (7.8-10.44); Carbon Dioxide 30 mmol/L (22-29); Chloride 95 mmol/L (98-107); Glucose 95 mg/dL (70-105); Potassium 4.8 mmol/L (3.5-5.1); Sodium 137 mmol/L (136-145)
[2021-07-28 06:17] LABS: #Basophils 0.1 thou/uL (0.0-0.2); #Eosinphils 0.1 thou/uL (0.0-0.7); #Lymphocytes 2.6 thou/uL (1.20-3.40); #Monocytes 1.1 thou/uL (0.11-0.59); #Neutrophils 7.7 thou/uL (1.40-6.50); %Basophils 0.7 % (0.0-1.0); %Eosinophils 1.1 % (0.0-10.0); %Lymphocytes 22.3 % (21.0-51.0); %Monocytes 9.6 % (0.0-10.0); %Neutrophils 66.3 % (42.0-75.0); Hemoglobin 11.1 g/dL (12.0-16.0); Mean Corpuscular HGB CONC 29.9 g/dL (32.0-36.0); Mean Corpuscular Hemoglobin 26.4 pg (27.0-31.0); Mean Corpuscular Volume 88.2 fL (78.0-98.0); Mean Platelet Volume 7.4 fL (7.4-10.4); Platelet Count 282 thou/uL (130-400); RBC Distribution Width 27.9 % (11.5-14.5); Red Blood Cell (RBC) Count 4.21 mill/uL (4.20-5.40); White Blood Cell (WBC) Count 11.6 thou/uL (4.8-10.8)
[2021-07-28] MEDS: Levothyroxine Sodium 88 MCG TAB PO SCH (06:39)
[2021-07-28] MEDS: Senokot S 8.6-50 MG TAB PO SCH ×2 (08:35→21:21)
[2021-07-28] MEDS: Pantoprazole 40 MG GRANULES PACKET PER TUBE SCH (08:35)
[2021-07-28] MEDS: Polyethylene Glycol 3350 17 GM Packet PER TUBE SCH (08:35)
[2021-07-28] MEDS: Enoxaparin Sodium 40 MG/0.4 ML SYRINGE SC SCH ×2 (08:35→21:21)
[2021-07-28] MEDS: Multivit, Therapeutic 1 TAB PO SCH (08:35)
[2021-07-28] MEDS: Dexamethasone 1 MG TAB PER TUBE SCH (08:35)
[2021-07-28] MEDS: ALPRAZolam 0.5 MG TAB PO SCH ×3 (08:35→21:20)
[2021-07-28] MEDS: Folic Acid 1 MG TAB PO SCH (08:35)
[2021-07-28] MEDS: Ascorbic Acid 500 mg Chewable Tablet PO SCH (08:35)
[2021-07-28] MEDS: Zinc Sulfate 220 MG CAP PO SCH (21:21)
[2021-07-28] MEDS: Cholecalciferol 1,000 UNITS (25 MCG) TAB PO SCH (21:21)
[2021-07-29] MEDS: Dexamethasone 1 MG TAB PER TUBE SCH (08:45)
[2021-07-29] MEDS: Ascorbic Acid 500 mg Chewable Tablet PO SCH (08:47)
[2021-07-29] MEDS: Senokot S 8.6-50 MG TAB PO SCH (08:47)
[2021-07-29] MEDS: ALPRAZolam 0.5 MG TAB PO SCH (08:47)
[2021-07-29] MEDS: Multivit, Therapeutic 1 TAB PO SCH (08:48)
[2021-07-29] MEDS: Pantoprazole 40 MG GRANULES PACKET PER TUBE SCH (08:48)
[2021-07-29] MEDS: Enoxaparin Sodium 40 MG/0.4 ML SYRINGE SC SCH (08:48)
[2021-07-29] MEDS: Folic Acid 1 MG TAB PO SCH (08:48)
[2021-07-29] MEDS: Levothyroxine Sodium 88 MCG TAB PO SCH (08:48)
[2021-07-29] MEDS: Polyethylene Glycol 3350 17 GM Packet PER TUBE SCH (08:49)
[2021-07-29 11:37] VITALS: BP 145/99
[2021-07-29 13:16] VITALS: TEMP 97.5
== END 2021-07-29 13:36 | DRG 4 ==
LOC: ERS 08:39 → ERHOLD 15:22 → CCU 20:04 → ERHOLD 20:05 → CCU 20:06 → ERHOLD 20:08 → CCU 06-03 05:36 → IMCU/EMU 07-27 09:41
PROVIDERS: ADMIT Internal Medicine; ATTEND Internal Medicine
PROC: 3E0333Z Introduction of Anti-inflammatory into Peripheral Vein, Percutaneous Approach (ICD-10-PCS; principal; 2021-06-02)
PROC: 5A1955Z Respiratory Ventilation, Greater than 96 Consecutive Hours (ICD-10-PCS; 2021-06-02)
PROC: 3E033XZ Introduction of Vasopressor into Peripheral Vein, Percutaneous Approach (ICD-10-PCS; 2021-06-02)
PROC: 0BH17EZ Insertion of Endotracheal Airway into Trachea, Via Natural or Artificial Opening (ICD-10-PCS; 2021-06-02)
PROC: 0DH67UZ Insertion of Feeding Device into Stomach, Via Natural or Artificial Opening (ICD-10-PCS; 2021-06-02)
PROC: 06HY33Z Insertion of Infusion Device into Lower Vein, Percutaneous Approach (ICD-10-PCS; 2021-06-02)
PROC: 8E0ZXY6 Isolation (ICD-10-PCS; 2021-06-02)
PROC: XW033H5 Introduction of Tocilizumab into Peripheral Vein, Percutaneous Approach, New Technology Group 5 (ICD-10-PCS; 2021-06-03)
PROC: 30233N1 Transfusion of Nonautologous Red Blood Cells into Peripheral Vein, Percutaneous Approach (ICD-10-PCS; 2021-06-03)
PROC: 0B9F8ZX Drainage of Right Lower Lung Lobe, Via Natural or Artificial Opening Endoscopic, Diagnostic (ICD-10-PCS; 2021-06-05)
PROC: 0B9J8ZZ Drainage of Left Lower Lung Lobe, Via Natural or Artificial Opening Endoscopic (ICD-10-PCS; 2021-06-14)
PROC: 0B9G8ZZ Drainage of Left Upper Lung Lobe, Via Natural or Artificial Opening Endoscopic (ICD-10-PCS; 2021-06-14)
PROC: 0B9K8ZZ Drainage of Right Lung, Via Natural or Artificial Opening Endoscopic (ICD-10-PCS; 2021-06-14)
PROC: 5A12012 Performance of Cardiac Output, Single, Manual (ICD-10-PCS; 2021-06-28)
PROC: 0B110F4 Bypass Trachea to Cutaneous with Tracheostomy Device, Open Approach (ICD-10-PCS; 2021-07-01)
PROC: 0DH63UZ Insertion of Feeding Device into Stomach, Percutaneous Approach (ICD-10-PCS; 2021-07-01)
PROC: 02HV33Z Insertion of Infusion Device into Superior Vena Cava, Percutaneous Approach (ICD-10-PCS; 2021-07-20)
PROC: B5181ZA Fluoroscopy of Superior Vena Cava using Low Osmolar Contrast, Guidance (ICD-10-PCS; 2021-07-20)
PROC: B548ZZA Ultrasonography of Superior Vena Cava, Guidance (ICD-10-PCS; 2021-07-20)
PROC: 0B21XFZ Change Tracheostomy Device in Trachea, External Approach (ICD-10-PCS; 2021-07-29)
DX: A41.89 Other specified sepsis (principal); R65.21 Severe sepsis with septic shock; U07.1 COVID-19; J12.82 Pneumonia due to coronavirus disease 2019; R57.8 Other shock; J80 Acute respiratory distress syndrome; J15.212 Pneumonia due to Methicillin resistant Staphylococcus aureus; N17.0 Acute kidney failure with tubular necrosis; I46.9 Cardiac arrest, cause unspecified; J15.1 Pneumonia due to Pseudomonas; J85.1 Abscess of lung with pneumonia; G92.8 Other toxic encephalopathy; E87.1 Hypo-osmolality and hyponatremia; G72.81 Critical illness myopathy; D62 Acute posthemorrhagic anemia; J98.11 Atelectasis; E46 Unspecified protein-calorie malnutrition; N39.0 Urinary tract infection, site not specified; Z68.41 Body mass index [BMI] 40.0-44.9, adult; Z99.11 Dependence on respirator [ventilator] status; J95.09 Other tracheostomy complication; Z51.5 Encounter for palliative care; E66.01 Morbid (severe) obesity due to excess calories; E03.9 Hypothyroidism, unspecified; E87.70 Fluid overload, unspecified; Y83.8 Other surgical procedures as the cause of abnormal reaction of the patient, or of later complication, without mention of misadventure at the time of the procedure; E11.65 Type 2 diabetes mellitus with hyperglycemia; N92.0 Excessive and frequent menstruation with regular cycle; R31.9 Hematuria, unspecified; R00.1 Bradycardia, unspecified; T42.6X5A Adverse effect of other antiepileptic and sedative-hypnotic drugs, initial encounter; J98.09 Other diseases of bronchus, not elsewhere classified; E87.5 Hyperkalemia; E83.39 Other disorders of phosphorus metabolism; R13.10 Dysphagia, unspecified; N18.9 Chronic kidney disease, unspecified; E11.22 Type 2 diabetes mellitus with diabetic chronic kidney disease; Z90.49 Acquired absence of other specified parts of digestive tract; Z78.1 Physical restraint status; Y92.230 Patient room in hospital as the place of occurrence of the external cause; D63.1 Anemia in chronic kidney disease
CPT/HCPCS: 0240U; 31500; 31624; 36415; 36416; 36430; 36556; 36569; 36600; 51702; 71045; 71250; 74177; 80048; 80053; 80069; 80202; 81001; 81003; 81015; 81025; 82550; 82570; 82607; 82728; 82746; 82805; 83036; 83540; 83550; 83605; 83735; 83880; 84100; 84156; 84300; 84439; 84443; 84484; 84540; 85025; 85027; 85046; 85060; 85379; 85610; 85730; 86140; 86850; 86900; 86901; 87040; 87070; 87077; 87086; 87186; 87205; 87449; 93005; 93010; 93306; 94002; 94003; 94640; 94660; 96365; 96366; 96368; 96375; C1751; C9113; J0171; J0360; J0456; J0461; J0692; J0696; J1100; J1644; J1650; J1815; J1940; J1956; J2060; J2185; J2250; J2358; J2405; J2543; J2704; J2765; J2916; J3010; J3370; J3475; J3490; J7030; J7050; J8540; M0249; P9016; Q0249; Q9967; S0020

== ENCOUNTER 2021-09-01 18:27 | Emergency (ER) | payer OTHER ==
[2021-09-01] MEDS ORDERED: Albuterol Sulfate 2.5 mg/3 ml Neb ONE ×2 (18:45→18:55)
[2021-09-01 19:00] LABS: Actual Bicarbonate (HCO3v) 28 mEq/L (22-28); Analyzer IN Cardio ER; Base Excess 0.5 mEq/L (-2.0 to +3.0); Calcium, Ionized (venous) 1.15 mmol/L (1.16-1.32); Chloride (VBG) 107 mmol/L (98-106); Hemoglobin (Hb) 12.6 g/dL (11.7-15.5); Potassium (VBG) 3.36 mmol/L (3.70-5.30); Sodium 143.4 mmol/L (133-146); pH (venous) 7.31 (7.32-7.43)
[2021-09-01 19:05] LABS: #Basophils 0.1 thou/uL (0.0-0.2); #Eosinphils 0.4 thou/uL (0.0-0.7); #Lymphocytes 4.5 thou/uL (1.20-3.40); #Monocytes 0.7 thou/uL (0.11-0.59); #Neutrophils 7.6 thou/uL (1.40-6.50); %Basophils 0.6 % (0.0-1.0); %Eosinophils 3.2 % (0.0-10.0); %Lymphocytes 33.8 % (21.0-51.0); %Monocytes 5.3 % (0.0-10.0); %Neutrophils 57.1 % (42.0-75.0); Hemoglobin 11.4 g/dL (12.0-16.0); Mean Corpuscular HGB CONC 31.3 g/dL (32.0-36.0); Mean Corpuscular Hemoglobin 28.8 pg (27.0-31.0); Mean Corpuscular Volume 91.9 fL (78.0-98.0); Mean Platelet Volume 9.5 fL (7.4-10.4); Platelet Count 359 thou/uL (130-400); RBC Distribution Width 20.3 % (11.5-14.5); Red Blood Cell (RBC) Count 3.98 mill/uL (4.20-5.40); White Blood Cell (WBC) Count 13.3 thou/uL (4.8-10.8)
[2021-09-01 19:25] LABS: ALT (SGPT) 25 U/L (8-55); AST (SGOT) 24 U/L (5-34); Albumin 3.6 g/dL (3.5-5.0); Alkaline Phosphatase 117 U/L (40-110); Anion Gap 10 mmol/L (10-20); BUN (Urea Nitrogen) 9 mg/dL (7.0-18.7); Bilirubin, Total 0.3 mg/dL (0.2-1.2); Calc. Creatinine Clearance 0 mL/min (70-130); Calcium 9.5 mg/dL (7.8-10.44); Carbon Dioxide 29 mmol/L (22-29); Chloride 107 mmol/L (98-107); Globulin 4.5 g/dL (2.4-3.5); Glucose 111 mg/dL (70-105); Potassium 3.3 mmol/L (3.5-5.1); Protein, Total 8.1 g/dL (6.0-8.3); Sodium 143 mmol/L (136-145)
[2021-09-01 21:19] LABS: Bilirubin Negative (Negative); Blood, Urine Negative (Negative); Clarity Clear (Clear); Glucose, Urine (Dipstick) Normal (Negative); Ketone, Urine Negative (Negative); Leukocyte Negative Leu/uL (Negative); Nitrite Negative (Negative); Protein, Urine (Dipstick) 20 mg/dL (Neg-Trace); Specific Gravity, Urine 1.036 (1.002-1.036); Urobilinogen Normal mg/dL (Less than 2)
[2021-09-01 21:21] LABS: Pregnancy Test - Urine (BHCG) Negative (Negative); Pregu Control Background? CLEAR/WHITE (CLR/WHITE); Pregu Control Bar Appear? YES (CONTROL BAR); Specific Gravity 1.036 (1.002-1.036)
== END 2021-09-01 21:15 | disposition home or self-care (01) ==
LOC: ERS 18:27
DX: J45.909 Unspecified asthma, uncomplicated (principal); E03.9 Hypothyroidism, unspecified; Z79.899 Other long term (current) drug therapy
CPT/HCPCS: 71045; 71275; 80053; 81003; 81025; 82805; 83605; 85025; 93005; 94640; 94644; J7611; J7620

== ENCOUNTER 2021-09-07 12:00 | Inpatient (IN) | payer OTHER ==
[~2021-09-07 12:00] MED LIST: Iopamidol-370 76% 500 ML 1 ML ONE
[2021-09-07] MEDS ORDERED: Labetalol HCl 100 MG/20 ML VIAL ONE (13:29)
[2021-09-07 13:51] LABS: #Eosinphils 0.1 thou/uL (0.0-0.7); #Monocytes 0.4 thou/uL (0.11-0.59); #Neutrophils 12.9 thou/uL (1.40-6.50); %Basophils 0.1 % (0.0-1.0); %Eosinophils 0.5 % (0.0-10.0); %Lymphocytes 7.2 % (21.0-51.0); %Monocytes 2.8 % (0.0-10.0); %Neutrophils 89.4 % (42.0-75.0); Hemoglobin 11.4 g/dL (12.0-16.0); Mean Corpuscular HGB CONC 30.3 g/dL (32.0-36.0); Mean Corpuscular Volume 92.2 fL (78.0-98.0); Mean Platelet Volume 9.9 fL (7.4-10.4); Platelet Count 319 thou/uL (130-400); RBC Distribution Width 19.5 % (11.5-14.5); Red Blood Cell (RBC) Count 4.09 mill/uL (4.20-5.40); White Blood Cell (WBC) Count 14.4 thou/uL (4.8-10.8)
[2021-09-07 14:24] LABS: ALT (SGPT) 65 U/L (8-55); AST (SGOT) 56 U/L (5-34); Albumin 3.5 g/dL (3.5-5.0); Alkaline Phosphatase 96 U/L (40-110); Anion Gap 13 mmol/L (10-20); BUN (Urea Nitrogen) 17 mg/dL (7.0-18.7); Bilirubin, Total 0.3 mg/dL (0.2-1.2); Calc. Creatinine Clearance 0 mL/min (70-130); Calcium 9.3 mg/dL (7.8-10.44); Carbon Dioxide 28 mmol/L (22-29); Chloride 105 mmol/L (98-107); Globulin 3.9 g/dL (2.4-3.5); Glucose 129 mg/dL (70-105); Potassium 3.5 mmol/L (3.5-5.1); Protein, Total 7.4 g/dL (6.0-8.3); Sodium 142 mmol/L (136-145)
[2021-09-07] MEDS ORDERED: Ondansetron ODT 4 MG TAB PO PRN (14:31)
[2021-09-07] MEDS ORDERED: Enoxaparin Sodium 40 MG/0.4 ML SYRINGE SC SCH (14:45)
[2021-09-07] MEDS ORDERED: Escitalopram Oxalate 10 mg Tablet PO SCH (16:15)
[2021-09-07] MEDS ORDERED: Labetalol HCl 100 MG/20 ML VIAL SLOW IVP PRN (16:33)
[2021-09-07 17:29] VITALS: BMI 42.7
[2021-09-07] MEDS ORDERED: FLU VACC QS2021-22(6MOS UP)/PF 60 MCG/0.5 ML SYRINGE IM ONE (18:00)
[2021-09-07] MEDS: hydrOXYzine 25 MG TAB PO SCH (20:57)
[2021-09-08] MEDS: Levothyroxine Sodium 88 MCG TAB PO SCH (06:23)
[2021-09-08] MEDS: Escitalopram Oxalate 10 mg Tablet PO SCH (08:28)
[2021-09-08] MEDS: Benzonatate 100 MG CAP PO PRN (12:08)
[2021-09-08] MEDS ORDERED: hydrALAZINE 20 MG/ML VIAL SLOW IVP PRN (17:54)
[2021-09-08] MEDS ORDERED: NIFEdipine XL 30 MG TAB PO SCH (18:30)
[2021-09-08] MEDS: guaiFENesin/DM ER PO SCH (20:36)
[2021-09-08] MEDS: hydrOXYzine 25 MG TAB PO SCH (20:36)
[2021-09-09] MEDS: Levothyroxine Sodium 88 MCG TAB PO SCH (05:52)
[2021-09-09 07:37] VITALS: TEMP 97.1
[2021-09-09] MEDS ORDERED: NIFEdipine XL 30 MG TAB PO SCH (09:00)
[2021-09-09] MEDS: Escitalopram Oxalate 10 mg Tablet PO SCH (09:35)
[2021-09-09] MEDS: guaiFENesin/DM ER PO SCH (09:35)
[2021-09-09] MEDS: Benzonatate 100 MG CAP PO PRN (09:35)
[2021-09-09 09:36] VITALS: BP 133/102
[2021-09-09] MEDS ORDERED: methylPREDNISolone Sod Succ 40 MG VIAL IVP SCH (12:00)
== END 2021-09-09 15:29 | disposition home or self-care (01) | DRG 206 ==
LOC: ERS 12:00 → ERHOLD 14:31 → IMCU/EMU 17:17
PROVIDERS: ADMIT Family Medicine; ATTEND Family Medicine
PROC: 5A09357 Assistance with Respiratory Ventilation, Less than 24 Consecutive Hours, Continuous Positive Airway Pressure (ICD-10-PCS; principal; 2021-09-08)
DX: J95.03 Malfunction of tracheostomy stoma (principal); Y84.8 Other medical procedures as the cause of abnormal reaction of the patient, or of later complication, without mention of misadventure at the time of the procedure; I16.0 Hypertensive urgency; U09.9 Post COVID-19 condition, unspecified; D64.9 Anemia, unspecified; E03.9 Hypothyroidism, unspecified; F43.10 Post-traumatic stress disorder, unspecified; E66.01 Morbid (severe) obesity due to excess calories; Z68.41 Body mass index [BMI] 40.0-44.9, adult; Z88.1 Allergy status to other antibiotic agents; Z88.8 Allergy status to other drugs, medicaments and biological substances; Z93.1 Gastrostomy status; Z81.8 Family history of other mental and behavioral disorders; Z82.49 Family history of ischemic heart disease and other diseases of the circulatory system; Z87.891 Personal history of nicotine dependence; Z90.49 Acquired absence of other specified parts of digestive tract; Z79.890 Hormone replacement therapy; Z79.51 Long term (current) use of inhaled steroids; Z79.52 Long term (current) use of systemic steroids; Z79.899 Other long term (current) drug therapy
CPT/HCPCS: 36415; 70491; 71045; 80053; 85025; 93005; 94640; 94660; 96374; J1650; J7620; Q9967